=== PATIENT | male | born 1960 | race African-American/Black ===

== ENCOUNTER 2016-11-14 15:34 | Emergency (ER) | payer MEDICAID ==
[2016-11-14] MEDS ORDERED: HYDROmorphone 1 MG/ML Syringe IM ONE (16:06)
[2016-11-14] MEDS ORDERED: Metoclopramide 10 MG/2 ML SDV IM ONE (16:06)
--- NOTE | 2016-11-14 16:13 | EDM.PDOC ---
ED HPI GENERAL MEDICAL PROBLEM - General Chief Complaint: General Stated Complaint: L HIP PAIN Time Seen by Provider: 11/14/16 16:08 Source of Information: Reports: Patient History Limitations: Reports: No limitations - History of Present Illness INITIAL COMMENTS - FREE TEXT/NARRATIVE: 56-year-old male of descent attends the ED with acute signs and symptoms of opiate withdrawal. Patient has nausea vomiting diarrhea rhinorrhea ,shakes and tremors with abdominal cramping pain. 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 He said his right hip total replacement. He is a war and was injured during activity in the war. He states that his pain has been controlled with OxyContin 80 mg twice a day for a long time. Decision made to try and wean him off this medication by Dr. Burkett his terminal carman care physician. His dose was reduced to 20 mg OxyContin twice a day . Patient states his pain is uncontrolled and now he is going through withdrawal. Treatment in the ED was and I am injection of Dilaudid 2 mg with Reglan 10 mg for nausea relief. I will place him on OxyContin 60 mg twice daily for the next 10 days until he can followup with Dr. Burkett decision made about further reductions in medication if that is the plan. Onset: sudden (48 hours ago) Onset Date: 11/13/16 Duration: Hour(s): Location: Reports: lower extremity, left (Has cubr-wn-rkof situation left hip. Has below-knee amputation left knee. Has a prosthetic left leg) Quality: Reports: Ache, Throbbing Severity: moderate (Become severe at times.) Improves with: Reports: None Worsens with: Reports: None, Movement Context: Denies: Activity, Exercise, Lifting, Sick contact (Standing or trying to walk), Trauma, Other Associated Symptoms: Reports: diaphoresis, fever/chills, loss of appetite, malaise (Nausea and vomiting), nausea/vomiting. 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 (see below) ([place] Contin 20 mg tablet.) Left Hip Pain Score (Numeric/FACES): 9 - Related Data Allergies Allergy/AdvReac Type Severity Reaction Status Date / Time tramadol Allergy Hives Verified 11/14/16 15:50 naproxen [From Naprosyn] AdvReac Nausea and Verified 11/14/16 15:50 Vomiting Home Meds: Home Meds Lisinopril 20 mg PO DAILY 11/23/14 [History] Canagliflozin/Metformin HCl [Invokamet 150-1,000 mg Tablet] 1 tab PO BID [History] Gabapentin [Neurontin] 800 mg PO TID 07/23/15 [History] Warfarin [Coumadin] 10 mg PO DAILY 07/23/15 [History] levETIRAcetam [Keppra] 500 mg PO BID 07/23/15 [History] Aspirin 325 mg PO DAILY 11/13/15 [History] oxyCODONE ER [OxyCONTIN] 20 mg PO BID 11/14/16 [History] oxyCODONE HCl [Oxycontin] 60 mg PO BID #20 tab.er.12h 11/14/16 [Rx] Past Medical History HEENT History: Reports: Impaired vision, Retinal detachment Cardiovascular History: Reports: Hypertension Respiratory History: Reports: None Gastrointestinal History: Reports: None Genitourinary History: Reports: None Other Musculoskeletal History: RITA suffered a fracture and had screws and plates placed 2004 Neurological History: Reports: None Psychiatric History: Reports: Depression Endocrine/Metabolic History: Reports: Diabetes, type II Other Endocrine/Metabolic History: Diabetes for the past year. Checks BS twice daily and takes a new med called Invokana Hematologic History: Reports: None Immunologic History: Reports: None Oncologic (Cancer) History: Reports: None Dermatologic History: Reports: Cellulitis Other Dermatologic History: Cellulitis to LLE - Infectious Disease History Infectious Disease History: Reports: None - Past Surgical History Other HEENT Surgeries/Procedures: detached retina 1978 Musculoskeletal Surgical History: Reports: Amputation Other Musculoskeletal Surgeries/Procedures:: right arthroscoptic knee 1980; right hip replacement 2004 in [place]; BTK amputation of the left leg Social & Family History - Family History Family Medical History: Noncontributory - Tobacco Use Smoking Status *Q: Never Smoker Years of Tobacco use: 10 Packs/Tins Daily: 0.5 Used Tobacco, but Quit: No Second Hand Smoke Exposure: No - Caffeine Use Caffeine Use: Reports: Soda - Alcohol Use Days Per Week of Alcohol Use: 0 Number of Drinks Per Day: 2 Total Drinks Per Week: 0 - Recreational Drug Use Recreational Drug Use: No - Living Situation & Occupation Living situation: Reports: single Occupation: disabled ED ROS GENERAL - Review of Systems Review Of Systems: See Below Constitutional: Reports: chills, malaise, weakness, fatigue. Denies: weight loss HEENT: Reports: No symptoms, Other (Dry mouth) Respiratory: Denies: Shortness of Breath, Wheezing, Pleuritic Chest Pain, Cough , Sputum Cardiovascular: Reports: No symptoms Endocrine: Reports: no symptoms GI/Abdominal: Reports: Diarrhea, Nausea, Vomiting. Denies: Abdominal pain, Anorexia, Black stool, Bloody stool : Reports: no symptoms Musculoskeletal: Reports: other (Feels tremors with occasional muscle cramps.) Neurological: Reports: Weakness, Other (Tremors) Psychiatric: Reports: Agitation, Anxiety, Mood lability Hematologic/Lymphatic: Reports: no symptoms Immunologic: Reports: no symptoms ED EXAM, GENERAL - Physical Exam Exam: See Below Exam Limited By: No limitations General Appearance: alert, moderate distress (Is diaphoretic.) Throat/Mouth: Normal inspection, Normal lips, Normal oropharynx, Other Head: atraumatic (Dry mouth.), normocephalic Neck: normal inspection, supple, non-tender, full range of motion. No: lymphadenopathy (L), lymphadenopathy (R) Respiratory/Chest: no respiratory distress, lungs clear, normal breath sounds, no accessory muscle use, chest non-tender Cardiovascular: regular rate, rhythm, no edema, no gallop, no murmur, no rub, tachycardia (Resting heart rate of 118 permanent) Extremities: other (Has an above-knee prosthesis on the left. Evidence of previous surgery surgery to his right hip.) Psychiatric: anxious Skin Exam: Cool, Diaphoretic (Mild) Course - Vital Signs Last Recorded V/S: Last Vital Signs Temp 36.1 C 11/14/16 15:44 Pulse 97 11/14/16 16:25 Resp 18 11/14/16 16:25 BP 152/95 H 11/14/16 16:25 Pulse Ox 97 11/14/16 16:25 - Orders/Labs/Meds Meds: Medications Discontinued Medications Generic Name Dose Route Start Last Admin Trade Name Freq PRN Reason Stop Dose Admin Hydromorphone HCl 2 mg 11/14/16 16:06 11/14/16 16:18 Dilaudid IM 11/14/16 16:07 2 mg ONETIME ONE Administration Metoclopramide HCl 10 mg 11/14/16 16:06 11/14/16 16:19 Reglan IM 11/14/16 16:07 10 mg ONETIME ONE Administration - Radiology Interpretation Free Text/Narrative:: 56-year-old male of descent reports that he is a war . States that he was pain has been controlled primarily his left hip and left lower extremity with OxyContin 80 mg twice a day for the last several months. Apparently a decision has been made to to reduce his OxyContin dosage and his primary care physician reduce his OxyContin to 20 mg twice daily from 80 mg twice daily last week. He was without medication for 2 days and since starting back he is now nauseated diaphoretic having diarrhea to keep anything down abdominal cramping pain feels jittery and shaky inside and week. On exam he is diaphoretic cool clammy skin. Reports significant nausea. Patient to go to acute opiate withdrawal. Plan given an IM injection of Dilaudid 2 mg with Reglan 10 mg for acute nausea vomiting and pain relief. He will be placed in OxyContin 60 mg twice daily for 10 days and then he'll followup with Dr. Burkett to further reduce his OxyContin if this is the plan. It appears he won' t need a much more gradual reduction in his medication. Departure - Departure Time of Disposition: 16:13 Disposition: Home, Self-Care 01 Condition: fair Clinical Impression: Opiate withdrawal Prescriptions: oxyCODONE HCl [Oxycontin] 60 mg PO BID #20 tab.er.12h Instructions: Finding Treatment for Addiction Referrals: Venkat Burkett MD [Primary Care Provider] - Forms: ED Department Discharge Additional Instructions: Evaluation in the emergency department today in regards to acute onset of opiate withdrawal. Previous pain management chronically has been OxyContin 80 mg twice daily. 4 terazosin it was reduced to 20 mg twice daily and subsequently you are experiencing acute opiate withdrawal with nausea vomiting diarrhea diaphoresis and tremors. It appears that the sudden decrease in the amount of opiates in your system is causing opiate withdrawal. He was therefore given an IM injection of Dilaudid 2 mg with Reglan 10 mg for nausea. I did write a prescription for OxyContin 60 mg tabs be taken twice a day for the next 10 days until you can sort this out with her primary care physician Dr. Sandoval. If further reductions are going to be carried out in your OxyContin treatment plan it'll have to be done gradually so that you do not experience acute opiate withdrawal.
[2016-11-14 16:29] VITALS: BP 152/95
== END 2016-11-14 16:25 | disposition home or self-care (01) ==
LOC: JD.ED 15:34
DX: F11.23 Opioid dependence with withdrawal (principal); I10 Essential (primary) hypertension; F32.9 Major depressive disorder, single episode, unspecified; E11.9 Type 2 diabetes mellitus without complications; Z79.82 Long term (current) use of aspirin; Z79.899 Other long term (current) drug therapy; Z79.01 Long term (current) use of anticoagulants; Z88.5 Allergy status to narcotic agent; Z88.8 Allergy status to other drugs, medicaments and biological substances; Z89.512 Acquired absence of left leg below knee; Z96.641 Presence of right artificial hip joint; Z98.890 Other specified postprocedural states
CPT/HCPCS: 96372; 99284; J1170; J2765

== ENCOUNTER 2016-12-07 13:55 | Emergency (ER) | payer MEDICAID ==
--- NOTE | 2016-12-07 14:07 | EDM.PDOC ---
ED HPI GENERAL MEDICAL PROBLEM - General Chief Complaint: Lower Extremity Injury/Pain Stated Complaint: LEFT LEG PAIN Time Seen by Provider: 12/07/16 14:07 Source of Information: Reports: Patient History Limitations: Reports: No Limitations - History of Present Illness INITIAL COMMENTS - FREE TEXT/NARRATIVE: 56-year-old male presents to the ED with left leg pain. Patient has a chronic qhmy-lq-dcem situation his left hip which is not amenable to surgery due to having a below-knee amputation on the left side. It is felt that if he has his hip fixed that he will possibly never be able to walk again. He reports that he lost his current dose of OxyContin 40 mg twice daily. You're Madelaine filled this a few days ago. He has been without medication since Friday evening. He reported the incident to the police apparently. He doesn't have anybody around him would take his medication. He is having some nausea without any diarrhea at this time. He states he feels spaced out in his head like he can't think straight. Apparently one of his new medications his Ativan which may be the culprit. He denies fever chills cough or sputum production. 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 He does have a artificial right hip), Generalized ( Feels generalized weakness feels cognitively impaired he can't think straight. Not sleeping well. Severe pain left hip) Quality: Reports: Ache, Throbbing Severity: Moderate (Chronic problem) Improves with: Reports: Rest Worsens with: Reports: Movement (Weightbearing) Context: Denies: Activity, Exercise, Lifting, Sick Contact, Trauma, Other Associated Symptoms: Reports: Confusion, Nausea/Vomiting (Nauseated but no vomiting), Weakness. 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) Left Hip Pain Score (Numeric/FACES): 8 - Related Data Allergies Allergy/AdvReac Type Severity Reaction Status Date / Time tramadol Allergy Hives Verified 11/14/16 15:50 naproxen [From Naprosyn] AdvReac Nausea and Verified 11/14/16 15:50 Vomiting Home Meds: Home Meds Lisinopril 20 mg PO DAILY 11/23/14 [History] Canagliflozin/Metformin HCl [Invokamet 150-1,000 mg Tablet] 1 tab PO BID [History] Gabapentin [Neurontin] 800 mg PO TID 07/23/15 [History] Warfarin [Coumadin] 10 mg PO DAILY 07/23/15 [History] levETIRAcetam [Keppra] 500 mg PO BID 07/23/15 [History] Aspirin 325 mg PO DAILY 11/13/15 [History] oxyCODONE ER [OxyCONTIN] 40 mg PO BID 11/14/16 [History] glipiZIDE [Glucotrol XL] 5 mg PO BIDD #60 tab.er 12/07/16 [Rx] oxyCODONE HCl [Oxycontin] 15 mg PO Q12H #20 tab.er.12h 12/07/16 [Rx] Past Medical History HEENT History: Reports: Impaired Vision, Retinal Detachment Cardiovascular History: Reports: Hypertension Respiratory History: Reports: None Gastrointestinal History: Reports: None Genitourinary History: Reports: None Other Musculoskeletal History: RITA suffered a fracture and had screws and plates placed 2004 Neurological History: Reports: None Psychiatric History: Reports: Depression Endocrine/Metabolic History: Reports: Diabetes, Type II Other Endocrine/Metabolic History: Diabetes for the past year. Checks BS twice daily and takes a new med called Invokana Hematologic History: Reports: None Immunologic History: Reports: None Oncologic (Cancer) History: Reports: None Dermatologic History: Reports: Cellulitis Other Dermatologic History: Cellulitis to LLE - Infectious Disease History Infectious Disease History: Reports: None - Past Surgical History HEENT Surgical History: Reports: Detached Retina Social & Family History - Family History Family Medical History: Noncontributory - Tobacco Use Smoking Status *Q: Never Smoker Years of Tobacco use: 10 Packs/Tins Daily: 0.5 Used Tobacco, but Quit: No Second Hand Smoke Exposure: No - Caffeine Use Caffeine Use: Reports: Soda - Alcohol Use Days Per Week of Alcohol Use: 0 Number of Drinks Per Day: 2 Total Drinks Per Week: 0 - Recreational Drug Use Recreational Drug Use: No - Living Situation & Occupation Living situation: Reports: Single Occupation: Disabled Review of Systems - Review of Systems Review Of Systems: See Below Constitutional: Reports: Weakness. Denies: Chills, Diaphoresis, Fever Eyes: Reports: No Symptoms Ears: Reports: No Symptoms Nose: Reports: No Symptoms Mouth/Throat: Reports: No Symptoms Respiratory: Reports: No Symptoms Cardiovascular: Reports: No Symptoms GI/Abdominal: Reports: Nausea. Denies: Vomiting Genitourinary: Reports: No Symptoms Musculoskeletal: Reports: Back Pain, Other (Chronic pain left hip from bone-on- bone situation. Has a below-knee amputation on the left side. Occasional phantom pain.) Skin: Reports: No Symptoms Neurological: Reports: Confusion, Difficulty Walking (Chronically has a prosthetic left leg). Denies: Dizziness (Feels confused and disoriented at times.), Headache, Numbness, Pre-Existing Deficit, Seizure, Syncope, Tingling, Trouble Speaking Psychiatric: Reports: Confusion Trauma Exam - Physical Exam Exam: See Below Exam Limited By: Other General Appearance: Reports: Alert (Answers all questions appropriately at the time my exam), WD/WN, No Apparent Distress Head: Reports: Atraumatic, Normocephalic Eyes: Bilateral Eye: Normal Inspection Throat/Mouth: Reports: Normal Inspection, Normal Lips, Normal Oropharynx Neck: Reports: Non-Tender, Full Range of Motion, Normal Alignment, Normal Inspection Respiratory Exam: Reports: Lungs Clear (Mild tachypnea breast), Normal Breath Sounds, Respiratory Distress Cardiovascular: Reports: Normal Peripheral Pulses, Regular Rate, Rhythm, No Edema (Mild tachycardia at rest 102 per minute.), No Gallop, No Murmur, No Rub, Tachycardia GI/Abdominal: Reports: Normal Bowel Sounds, Soft, Non-Tender, No Organomegaly Extremities: Other (Has a below-knee amputation on the left side wearing his prosthesis at this time.) Neurologic: Reports: No Motor/Sensory Deficits, Alert, Normal Mood/Affect, Oriented x 3 Skin: Reports: Normal Color, Warm/Dry - [place] Coma Score Best Eye Response ([place]): (4) Open Spontaneously Best Verbal Response ([place]): (5) Oriented Best Motor Response ([place]): (6) Obeys Commands [place] Total: 15 Course - Vital Signs Last Recorded V/S: Last Vital Signs Temp 36.3 C 12/07/16 14:11 Pulse 102 H 12/07/16 14:11 Resp 20 12/07/16 14:11 BP 156/77 H 12/07/16 14:11 Pulse Ox 99 12/07/16 14:11 - Orders/Labs/Meds Labs: Laboratory Tests 12/07/16 12/07/16 12/07/16 Range/Units 14:27 14:27 14:27 WBC 5.90 (4.23-9.07) K/mm3 RBC 5.54 (4.63-6.08) M/mm3 Hgb 15.4 (13.7-17.5) gm/L Hct 46.8 (40.1-51.0) % MCV 84.5 (79.0-92.2) fl MCH 27.8 (25.7-32.2) pg MCHC 32.9 (32.2-35.5) g/dl RDW Std Deviation 44.5 H (35.1-43.9) fL Plt Count 244 (163-337) K/mm3 MPV 10.1 (9.4-12.3) fl Neutrophils % (Manual) 53 (40-60) % Band Neutrophils % 0 (0-10) % Lymphocytes % (Manual) 44 H (20-40) % Atypical Lymphs % 0 % Monocytes % (Manual) 3 (2-10) % Eosinophils % (Manual) 0 L (0.8-7.0) % Basophils % (Manual) 0 L (0.2-1.2) Platelet Estimate Adequate RBC Morph Comment Normal PT 30.4 H (8.0-13.0) SECONDS INR 2.62 Sodium 135 L (136-145) mEq/L Potassium 3.9 (3.5-5.1) mEq/L Chloride 100 (98-107) mEq/L Carbon Dioxide 20 L (21-32) mEq/L Anion Gap 18.9 H (5-15) BUN 14 (7-18) mg/dL Creatinine 1.2 (0.7-1.3) mg/dL Est Cr Clr Drug Dosing TNP Estimated GFR (MDRD) > 60 (>60) mL/min BUN/Creatinine Ratio 11.7 L (14-18) Glucose 331 H (74-106) mg/dL Hemoglobin A1c (4.50-6.20) % Calcium 9.4 (8.5-10.1) mg/dL Magnesium 2.0 (1.8-2.4) mg/dl Total Bilirubin 0.3 (0.2-1.0) mg/dL AST 16 (15-37) U/L ALT 39 (16-63) U/L Alkaline Phosphatase 84 (46-116) U/L Total Protein 8.2 (6.4-8.2) g/dl Albumin 3.7 (3.4-5.0) g/dl Globulin 4.5 gm/dL Albumin/Globulin Ratio 0.8 L (1-2) //17 Range/Units 14:27 WBC (4.23-9.07) K/mm3 RBC (4.63-6.08) M/mm3 Hgb (13.7-17.5) gm/L Hct (40.1-51.0) % MCV (79.0-92.2) fl MCH (25.7-32.2) pg MCHC (32.2-35.5) g/dl RDW Std Deviation (35.1-43.9) fL Plt Count (163-337) K/mm3 MPV (9.4-12.3) fl Neutrophils % (Manual) (40-60) % Band Neutrophils % (0-10) % Lymphocytes % (Manual) (20-40) % Atypical Lymphs % % Monocytes % (Manual) (2-10) % Eosinophils % (Manual) (0.8-7.0) % Basophils % (Manual) (0.2-1.2) Platelet Estimate RBC Morph Comment PT (8.0-13.0) SECONDS INR Sodium (136-145) mEq/L Potassium (3.5-5.1) mEq/L Chloride (98-107) mEq/L Carbon Dioxide (21-32) mEq/L Anion Gap (5-15) BUN (7-18) mg/dL Creatinine (0.7-1.3) mg/dL Est Cr Clr Drug Dosing Estimated GFR (MDRD) (>60) mL/min BUN/Creatinine Ratio (14-18) Glucose (74-106) mg/dL Hemoglobin A1c 9.60 H (4.50-6.20) % Calcium (8.5-10.1) mg/dL Magnesium (1.8-2.4) mg/dl Total Bilirubin (0.2-1.0) mg/dL AST (15-37) U/L ALT (16-63) U/L Alkaline Phosphatase (46-116) U/L Total Protein (6.4-8.2) g/dl Albumin (3.4-5.0) g/dl Globulin gm/dL Albumin/Globulin Ratio (1-2) Meds: Medications Discontinued Medications Generic Name Dose Route Start Last Admin Trade Name Raquel PRN Reason Stop Dose Admin Hydromorphone HCl 1.5 mg 12/07/16 14:18 12/07/16 15:34 Dilaudid IM 12/07/16 14:19 1.5 mg ONETIME ONE Administration Insulin Human Regular 8 unit 12/07/16 15:16 12/07/16 15:29 Humulin R SUBCUT 12/07/16 15:17 8 units ONETIME ONE Administration Protocol Metoclopramide HCl 10 mg 12/07/16 14:18 12/07/16 15:32 Reglan IM 12/07/16 14:19 10 mg ONETIME ONE Administration - Radiology Interpretation Free Text/Narrative:: 56-year-old male presents the ED primarily for pain management. Has a chronic nnaq-if-hitj situation left hip due to degenerative arthritis which is not amenable to surgery at this time. He is a chronic pain in his left lower extremity from below-knee of dictation. He has recently been started on a weaning program from OxyContin. He was been weaned from 80 mg twice daily down to 60 mg twice daily and in the last week started 40 mg twice daily. He states he simply misplaced or lost his medication on Friday night morning and has yet to find it. Starting to have some withdrawal symptoms today with nausea with no vomiting or diarrhea. He states today however he feels more confused and somewhat disoriented and not sure of himself. He is alert and oriented on my examination and answers all questions appropriately. Plan I will give him an IM injection of Dilaudid 1.5 mg with Reglan 10 mg. Of note he weighs 315 pounds. He is on Coumadin 10 mg daily. I will have routine labs performed as well as his PT/INR. - Re-Assessments/Exams Free Text/Narrative Re-Assessment/Exam: 12/07/16 15:06 lab work is back revealing a normal white count of 5.90 with 53% neutrophils 40% lymphocytes. Hemoglobin 15.4 hematocrit is 46.8. PT is 30.4 PT INR is 2.62. Sodium 135 potassium 3.9 bicarbonate is 20 anion gap is elevated 18.9 and glucose is elevated at 331 indicating that he has type 2 diabetes. Therefore he is going to play denies together reason it is probably not feeling quite so well. 12/07/16 15:19 he states she's been taking his Endocam meds he is already on the maximum dose. His elevated anion gap and sugar indicate that his diabetes is in poor control. I'm going to give him 8 units of Humalog insulin subcutaneous now and will start him on glipizide 5 mg twice a day. I will discharge him on OxyContin 15 mg twice daily for 10 days until he can follow up with Dr. Burkett again. Departure - Departure Time of Disposition: 15:20 Disposition: Home, Self-Care 01 Condition: fair Clinical Impression: Volume depletion, extrarenal loss, Pain management Uncontrolled type 2 diabetes mellitus Qualifiers: Diabetes mellitus complication status: with unspecified complications - Discharge Information Prescriptions: glipiZIDE [Glucotrol XL] 5 mg PO BIDD #60 tab.er oxyCODONE HCl [Oxycontin] 15 mg PO Q12H #20 tab.er.12h Instructions: Type 2 Diabetes Mellitus, Adult Referrals: Venkat Burkett MD [Primary Care Provider] - Forms: ED Department Discharge
[2016-12-07] MEDS ORDERED: HYDROmorphone 1 MG/ML Syringe IM ONE (14:18)
[2016-12-07] MEDS ORDERED: Metoclopramide 10 MG/2 ML SDV IM ONE (14:18)
[2016-12-07] MEDS ORDERED: Insulin Regular, Human 100 Units/ML 3 ML Vial SUBCUT ONE (15:16)
[2016-12-07 18:17] VITALS: BP 146/81
== END 2016-12-07 16:00 | disposition home or self-care (01) ==
LOC: JD.ED 13:55
DX: E86.9 Volume depletion, unspecified (principal); E11.65 Type 2 diabetes mellitus with hyperglycemia; I10 Essential (primary) hypertension; Z79.01 Long term (current) use of anticoagulants; Z79.82 Long term (current) use of aspirin; Z79.899 Other long term (current) drug therapy
CPT/HCPCS: 36415; 80053; 83036; 83735; 85025; 85610; 96372; 99283; J1170; J1817; J2765

== ENCOUNTER 2017-02-17 08:27 | Emergency (ER) | payer MEDICAID ==
[2017-02-17 08:43] VITALS: BP 148/110
--- NOTE | 2017-02-17 09:07 | EDM.PDOC ---
ED HPI GENERAL MEDICAL PROBLEM - General Chief Complaint: Lower Extremity Injury/Pain Stated Complaint: HIP PAIN Time Seen by Provider: 02/17/17 08:50 Source of Information: Reports: Patient History Limitations: Reports: No Limitations - History of Present Illness INITIAL COMMENTS - FREE TEXT/NARRATIVE: The patient presents for a medicine refill. He has chronic hip pain and a left leg amputation. He misplaced his medications and is needing more. Onset: Gradual Duration: Day(s): Location: Reports: Lower Extremity, Left (Hip and leg) Quality: Reports: Sharp Severity: Severe Improves with: Reports: None Worsens with: Reports: Movement Associated Symptoms: Reports: No Other Symptoms - Related Data Allergies Allergy/AdvReac Type Severity Reaction Status Date / Time tramadol Allergy Hives Verified 02/17/17 08:43 naproxen [From Naprosyn] AdvReac Nausea and Verified 02/17/17 08:43 Vomiting Home Meds: Home Meds Lisinopril 20 mg PO DAILY 11/23/14 [History] Canagliflozin/Metformin HCl [Invokamet 150-1,000 mg Tablet] 1 tab PO BID [History] Gabapentin [Neurontin] 800 mg PO TID 07/23/15 [History] Warfarin [Coumadin] 10 mg PO DAILY 07/23/15 [History] levETIRAcetam [Keppra] 500 mg PO BID 07/23/15 [History] Aspirin 325 mg PO DAILY 11/13/15 [History] glipiZIDE [Glucotrol XL] 5 mg PO BIDD #60 tab.er 12/07/16 [Rx] oxyCODONE HCl [Oxycontin] 15 mg PO Q12H #20 tab.er.12h 12/07/16 [Rx] oxyCODONE HCl [Oxycodone HCl] 15 mg PO BID PRN #20 tablet 02/17/17 [Rx] Past Medical History HEENT History: Reports: Impaired Vision, Retinal Detachment Cardiovascular History: Reports: Hypertension Respiratory History: Reports: None Gastrointestinal History: Reports: None Genitourinary History: Reports: None Other Musculoskeletal History: RITA suffered a fracture and had screws and plates placed 2004 Neurological History: Reports: None Psychiatric History: Reports: Depression Endocrine/Metabolic History: Reports: Diabetes, Type II Other Endocrine/Metabolic History: Diabetes for the past year. Checks BS twice daily and takes a new med called Invokana Hematologic History: Reports: None Immunologic History: Reports: None Oncologic (Cancer) History: Reports: None Dermatologic History: Reports: Cellulitis Other Dermatologic History: Cellulitis to LLE - Infectious Disease History Infectious Disease History: Reports: None - Past Surgical History HEENT Surgical History: Reports: Detached Retina Social & Family History - Family History Family Medical History: Noncontributory - Tobacco Use Smoking Status *Q: Never Smoker Years of Tobacco use: 10 Packs/Tins Daily: 0.5 Used Tobacco, but Quit: No Month Tobacco Last Used: 31 yrs Second Hand Smoke Exposure: No - Caffeine Use Caffeine Use: Reports: Soda - Alcohol Use Days Per Week of Alcohol Use: 0 Number of Drinks Per Day: 2 Total Drinks Per Week: 0 - Recreational Drug Use Recreational Drug Use: No - Living Situation & Occupation Living situation: Reports: Single Occupation: Disabled Review of Systems - Review of Systems Review Of Systems: See Below Constitutional: Reports: No Symptoms Eyes: Reports: No Symptoms Ears: Reports: No Symptoms Nose: Reports: No Symptoms Mouth/Throat: Reports: No Symptoms Respiratory: Reports: No Symptoms Cardiovascular: Reports: No Symptoms GI/Abdominal: Reports: No Symptoms Genitourinary: Reports: No Symptoms Musculoskeletal: Reports: Other (Left hip and leg pain) ED EXAM, GENERAL - Physical Exam Exam: See Below Exam Limited By: No Limitations General Appearance: Alert, No Apparent Distress Ears: Normal External Exam Nose: Normal Inspection Head: Atraumatic, Normocephalic Neck: Normal Inspection Respiratory/Chest: No Respiratory Distress, Lungs Clear, Normal Breath Sounds Cardiovascular: Regular Rate, Rhythm, No Edema, No Murmur GI/Abdominal: Soft, Non-Tender, No Organomegaly Back Exam: Normal Inspection Extremities: Other (Below the knee amputation. Left hip pain upon palpation.) Course - Vital Signs Last Recorded V/S: Last Vital Signs Temp 97.1 F 02/17/17 08:41 Pulse 100 02/17/17 08:41 Resp 16 02/17/17 08:41 BP 148/110 H 02/17/17 08:41 Pulse Ox 100 02/17/17 08:41 Departure - Departure Time of Disposition: 09:05 Disposition: Home, Self-Care 01 Condition: Good Clinical Impression: Chronic left hip pain Osteoarthritis of left hip Qualifiers: Osteoarthritis type: primary Qualified Code(s): M16.12 - Unilateral primary osteoarthritis, left hip - Discharge Information Prescriptions: oxyCODONE HCl [Oxycodone HCl] 15 mg PO BID PRN #20 tablet PRN Reason: Pain Referrals: Venkat Burkett MD [Primary Care Provider] - Forms: ED Department Discharge Additional Instructions: Take your medication as prescribed. Please return if you are worse.
== END 2017-02-17 09:31 | disposition home or self-care (01) ==
LOC: JD.ED 08:27
DX: M16.12 Unilateral primary osteoarthritis, left hip (principal); I10 Essential (primary) hypertension; E11.9 Type 2 diabetes mellitus without complications; F32.9 Major depressive disorder, single episode, unspecified; Z88.5 Allergy status to narcotic agent; Z79.899 Other long term (current) drug therapy; Z79.01 Long term (current) use of anticoagulants; Z79.82 Long term (current) use of aspirin
CPT/HCPCS: 99282; 99283

== ENCOUNTER 2017-03-13 16:15 | Emergency (ER) | payer MEDICAID ==
[2017-03-13 16:30] VITALS: BP 156/107
--- NOTE | 2017-03-13 16:52 | EDM.PDOC ---
ED HPI GENERAL MEDICAL PROBLEM - General Chief Complaint: Lower Extremity Injury/Pain Stated Complaint: Hip pain Time Seen by Provider: 03/13/17 16:30 Source of Information: Reports: Patient, RN Notes Reviewed History Limitations: Reports: No Limitations - History of Present Illness INITIAL COMMENTS - FREE TEXT/NARRATIVE: 56 year old male presents to the ED with complaints of left hip pain after a fall two days ago. He has a left below the knee amputation. He was trying out a new prosthesis when he fell. He is able to bear weight but it is painful. He has severe arthritis and was told that he is not a candidate for surgery. The patient says he has not taken anything for pain. He has tried icing it. Left Hip Pain Score (Numeric/FACES): 9 - Related Data Allergies Allergy/AdvReac Type Severity Reaction Status Date / Time tramadol Allergy Hives Verified 03/13/17 16:24 naproxen [From Naprosyn] AdvReac Nausea and Verified 03/13/17 16:24 Vomiting Home Meds: Home Meds Lisinopril 20 mg PO DAILY 11/23/14 [History] Canagliflozin/Metformin HCl [Invokamet 150-1,000 mg Tablet] 1 tab PO BID [History] Gabapentin [Neurontin] 800 mg PO TID 07/23/15 [History] Warfarin [Coumadin] 10 mg PO DAILY 07/23/15 [History] levETIRAcetam [Keppra] 500 mg PO BID 07/23/15 [History] Aspirin 325 mg PO DAILY 11/13/15 [History] glipiZIDE [Glucotrol XL] 5 mg PO BIDD #60 tab.er 12/07/16 [Rx] oxyCODONE HCl [Oxycodone HCl] 15 mg PO BID PRN #20 tablet 02/17/17 [Rx] Past Medical History HEENT History: Reports: Impaired Vision, Retinal Detachment Cardiovascular History: Reports: Hypertension Respiratory History: Reports: None Gastrointestinal History: Reports: None Genitourinary History: Reports: None Other Musculoskeletal History: RITA suffered a fracture and had screws and plates placed 2004 Neurological History: Reports: None Psychiatric History: Reports: Depression Endocrine/Metabolic History: Reports: Diabetes, Type II Other Endocrine/Metabolic History: Diabetes for the past year. Checks BS twice daily and takes a new med called Invokana Hematologic History: Reports: None Immunologic History: Reports: None Oncologic (Cancer) History: Reports: None Dermatologic History: Reports: Cellulitis Other Dermatologic History: Cellulitis to LLE - Infectious Disease History Infectious Disease History: Reports: None - Past Surgical History HEENT Surgical History: Reports: Detached Retina Social & Family History - Family History Family Medical History: Noncontributory - Tobacco Use Smoking Status *Q: Unknown Ever Smoked Years of Tobacco use: 10 Packs/Tins Daily: 0.5 Used Tobacco, but Quit: No Month Tobacco Last Used: 31 yrs Second Hand Smoke Exposure: No - Caffeine Use Caffeine Use: Reports: Soda - Alcohol Use Days Per Week of Alcohol Use: 0 Number of Drinks Per Day: 2 Total Drinks Per Week: 0 - Recreational Drug Use Recreational Drug Use: No - Living Situation & Occupation Living situation: Reports: Single Occupation: Disabled Review of Systems - Review of Systems Review Of Systems: See Below Respiratory: Reports: No Symptoms Cardiovascular: Reports: No Symptoms Musculoskeletal: Reports: Joint Pain Skin: Reports: No Symptoms. Denies: Wound Neurological: Reports: No Symptoms. Denies: Numbness, Tingling ED EXAM, GENERAL - Physical Exam Exam: See Below Exam Limited By: No Limitations General Appearance: Alert, WD/WN, No Apparent Distress Respiratory/Chest: No Respiratory Distress, Lungs Clear Cardiovascular: Regular Rate, Rhythm Extremities: Other (left below the knee amputation. prosthesis in place. Tenderness over anterior aspect of left hip with palpation. No crepitus or deformity. No external rotation appreciated. ) Neurological: Alert, Oriented, Normal Gait Psychiatric: Flat Affect Skin Exam: Warm, Dry, Intact Course - Vital Signs Last Recorded V/S: Last Vital Signs Temp 97.7 F 03/13/17 16:26 Pulse 103 H 03/13/17 16:26 Resp BP 156/107 H 03/13/17 16:26 Pulse Ox 98 03/13/17 16:26 - Orders/Labs/Meds Orders: Active Orders 24 hr Category Date Time Status Hip Min 2V or 3V w Pelvis Lt [CR] Stat Exams 03/13/17 16:47 Ordered Meds: Medications Discontinued Medications Generic Name Dose Route Start Last Admin Trade Name Freq PRN Reason Stop Dose Admin Ketorolac Tromethamine 60 mg 03/13/17 17:27 Toradol IM 03/13/17 17:28 ONETIME ONE - Re-Assessments/Exams Free Text/Narrative Re-Assessment/Exam: I asked the patient to go through his current medications. He listed various medications but did not mention any opiates. I asked if he is taking any pain medication and he said no. I asked if he took anything for pain after his fall and he again said no. Review of the [place] Prescription Drug Registry reveals the following recent prescriptions: 03/06/17 Oxycontin 20mg #60 02/24/17 Diazepam 2mg #90 02/20/17 Oxycodone 20mg #180 02/17/17 Oxycodone 15mg #20 02/11/17 Oxycontin 20mg #60 01/27/17 Diazepam 2mg #90 01/27/17 Oxycodone 15mg #180 I asked the patient who his primary care provider is and he replied Dr. Caraballo. I asked if he has a local provider and he said no. The Drug registry reveals monthly prescriptions from Dr. Burkett. 03/13/17 17:33 X-rays of the pelvis and left hip are negative for fracture. He has severe arthritis to the left hip. The explained to the patient that I will not prescribe narcotics today because he has had several prescriptions filled this month. He states that he did not get the prescriptions filled. I explained that controlled substances only show up on the registry if they are filled. He continued to say that he has not filled them and stated "Call the pharmacy and ask them." I proceeded to call [facility] and they verified that the patient did in fact fill the above listed prescriptions. The patient will be given a one time dose of Toradol and discharged home. Departure - Departure Time of Disposition: 17:39 Disposition: Home, Self-Care 01 Condition: Good Clinical Impression: Chronic left hip pain - Discharge Information Referrals: PCP,None [Primary Care Provider] - Forms: ED Department Discharge Additional Instructions: Follow-up with Dr. Burkett to discuss your chronic pain Ice your left hip Weight bearing as tolerated - My Orders Last 24 Hours: My Active Orders 03/13/17 16:47 Hip Min 2V or 3V w Pelvis Lt [CR] Stat - Assessment/Plan Last 24 Hours: My Active Orders 03/13/17 16:47 Hip Min 2V or 3V w Pelvis Lt [CR] Stat
[2017-03-13] MEDS ORDERED: Ketorolac 60 MG/2 ML SDV IM ONE (17:27)
--- NOTE | 2017-03-14 08:19 | CR ---
Pelvis and left hip: AP view of the pelvis was obtained as well as AP and slight frog leg lateral view of the left hip. Comparison: Previous pelvis exam of 11/13/15. Right hip prosthesis is seen. Incidental heterotopic bone is noted off the lateral right hip. Severe joint space narrowing is noted within the left hip with subchondral cysts and osteophytes. Plate and screws are noted within the proximal left femur affixing an old femur fracture. Degenerative change is partially seen within the visualized lower lumbar spine. Vascular calcification is noted. No acute fracture or other abnormality is appreciated. Impression: 1. Right hip prosthesis. 2. Plate and screws affixing old left hip fracture. Secondary degenerative change within the left hip is seen which appears severe. 3. Other incidental findings. Nothing acute is appreciated. Diagnostic code #3
== END 2017-03-13 18:00 | disposition home or self-care (01) ==
LOC: JD.ED 16:15
DX: M25.552 Pain in left hip (principal); G89.29 Other chronic pain; I10 Essential (primary) hypertension; F32.9 Major depressive disorder, single episode, unspecified; E11.9 Type 2 diabetes mellitus without complications; Z88.5 Allergy status to narcotic agent; Z79.82 Long term (current) use of aspirin; Z79.899 Other long term (current) drug therapy; Z68.32 Body mass index [BMI] 32.0-32.9, adult
CPT/HCPCS: 73502; 99283; J1885

== ENCOUNTER 2017-03-23 03:39 | Emergency (ER) | payer MEDICAID ==
[2017-03-23 03:56] VITALS: BP 135/91
[2017-03-23] MEDS ORDERED: HYDROmorphone 1 MG/ML Syringe IM ONE (04:10)
[2017-03-23] MEDS ORDERED: Promethazine 25 MG/ML SDV IM ONE (04:10)
--- NOTE | 2017-03-23 04:10 | EDM.PDOC ---
ED HPI GENERAL MEDICAL PROBLEM - General Chief Complaint: Lower Extremity Injury/Pain Stated Complaint: HIP PAIN Time Seen by Provider: 03/23/17 03:55 Source of Information: Reports: Patient History Limitations: Reports: No Limitations - History of Present Illness INITIAL COMMENTS - FREE TEXT/NARRATIVE: Mr. Barrera comes to the emergency room tonight due to increasing left hip pain. He states she's not able to sleep and he doesn't have any pain medication. Patient has a new prosthetic below-knee amputation in the past. It has a ball joint in the ankle joint which is made him fall a few times he is still getting used to the prosthesis. His pain is in the left groin and he has a known [id number]-[id number] situation in the hip. Pain is rating towards his penis and testicles which she finds very uncomfortable. It is worse with weightbearing. He therefore tends the ED tonight primarily for pain management so that you might get some sleep. 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: Other (see below) (None.) Left Hip Pain Score (Numeric/FACES): 8 - Related Data Allergies Allergy/AdvReac Type Severity Reaction Status Date / Time tramadol Allergy Hives Verified 03/13/17 16:24 naproxen [From Naprosyn] AdvReac Nausea and Verified 03/13/17 16:24 Vomiting Home Meds: Home Meds Lisinopril 20 mg PO DAILY 11/23/14 [History] Canagliflozin/Metformin HCl [Invokamet 150-1,000 mg Tablet] 1 tab PO BID [History] Gabapentin [Neurontin] 800 mg PO TID 07/23/15 [History] Warfarin [Coumadin] 10 mg PO DAILY 07/23/15 [History] levETIRAcetam [Keppra] 500 mg PO BID 07/23/15 [History] Aspirin 325 mg PO DAILY 11/13/15 [History] glipiZIDE [Glucotrol XL] 5 mg PO BIDD #60 tab.er 12/07/16 [Rx] oxyCODONE HCl [Oxycodone HCl] 15 mg PO BID PRN #20 tablet 02/17/17 [Rx] oxyCODONE HCl/Acetaminophen [Percocet 5-325 mg Tablet] 1 - 2 each PO Q4H PRN # 20 tablet 03/23/17 [Rx] Past Medical History HEENT History: Reports: Impaired Vision, Retinal Detachment Cardiovascular History: Reports: Hypertension Respiratory History: Reports: None Gastrointestinal History: Reports: None Genitourinary History: Reports: None Other Musculoskeletal History: RITA suffered a fracture and had screws and plates placed 2004 Neurological History: Reports: None Psychiatric History: Reports: Depression Endocrine/Metabolic History: Reports: Diabetes, Type II Other Endocrine/Metabolic History: Diabetes for the past year. Checks BS twice daily and takes a new med called Invokana Hematologic History: Reports: None Immunologic History: Reports: None Oncologic (Cancer) History: Reports: None Dermatologic History: Reports: Cellulitis Other Dermatologic History: Cellulitis to LLE - Infectious Disease History Infectious Disease History: Reports: None - Past Surgical History HEENT Surgical History: Reports: Detached Retina Social & Family History - Family History Family Medical History: Noncontributory - Tobacco Use Smoking Status *Q: Former Smoker Years of Tobacco use: 10 Packs/Tins Daily: 0.5 Used Tobacco, but Quit: Yes Month Tobacco Last Used: 37 years ago` Second Hand Smoke Exposure: No - Caffeine Use Caffeine Use: Reports: Soda - Alcohol Use Days Per Week of Alcohol Use: 0 Number of Drinks Per Day: 2 Total Drinks Per Week: 0 - Recreational Drug Use Recreational Drug Use: No - Living Situation & Occupation Living situation: Reports: Single Occupation: Disabled Review of Systems - Review of Systems Review Of Systems: See Below Constitutional: Denies: Chills, Diaphoresis, Fever, Weakness, Other Eyes: Reports: Glasses Ears: Reports: No Symptoms Nose: Reports: No Symptoms Mouth/Throat: Reports: No Symptoms Respiratory: Reports: No Symptoms Cardiovascular: Reports: No Symptoms GI/Abdominal: Reports: No Symptoms Genitourinary: Reports: Other (Currently having a lot of pain in his penis and left side of the scrotum.) Musculoskeletal: Reports: Shoulder Pain, Back Pain, Joint Pain (Severe pain left hip where has [id number]-rg-kgal situation.) Skin: Reports: No Symptoms Neurological: Reports: No Symptoms Psychiatric: Reports: No Symptoms ED EXAM, GENERAL - Physical Exam Exam: See Below Exam Limited By: No Limitations General Appearance: Alert, WD/WN, Mild Distress Respiratory/Chest: No Respiratory Distress, Normal Breath Sounds, No Accessory Muscle Use, Chest Non-Tender Cardiovascular: Normal Peripheral Pulses, Regular Rate, Rhythm, No Edema, No Murmur Back Exam: Other (Patient is walking with the aid of a cane and he is hunched over. He is a tall man but he states he has to walk this way to keep balance on his new prosthetic leg and ankle. Walks with a terrible limp due to severe pain in his left hip.) Neurological: Alert, Oriented, CN II-XII Intact, Normal Cognition. No: Normal Gait Psychiatric: Normal Affect Skin Exam: Warm, Dry, Intact, Normal Color, No Rash Course - Vital Signs Last Recorded V/S: Last Vital Signs Temp 36.6 C 03/23/17 03:53 Pulse 105 H 03/23/17 03:53 Resp 16 03/23/17 03:53 BP 135/91 H 03/23/17 03:53 Pulse Ox 99 03/23/17 03:53 - Orders/Labs/Meds Meds: Medications Discontinued Medications Generic Name Dose Route Start Last Admin Trade Name Freq PRN Reason Stop Dose Admin Hydromorphone HCl 2 mg 03/23/17 04:10 03/23/17 04:28 Dilaudid IM 03/23/17 04:11 2 mg ONETIME ONE Administration Promethazine HCl 25 mg 03/23/17 04:10 03/23/17 04:27 Phenergan IM 03/23/17 04:11 25 mg ONETIME ONE Administration - Radiology Interpretation Free Text/Narrative:: 56-year-old male with chronic pain syndrome involving his left hip where there is a [id number] situation. He has gotten these prosthetic leg with a ball joint and the ankle in the last 10 days. He states he is on several times as the ankle twist suddenly causing him to fall lose his balance. He is having increasing pain in his left hip and he does not have any pain medication. He essentially comes to the ED for pain management tonight. Given Dilaudid 2 mg IM with Phenergan 25 mg IM for acute pain relief. Patient has a high tolerance to narcotics. He will get 20 tablets of Percocet 5/3/25 milligrams strength from the [employer] machine. Departure - Departure Time of Disposition: 04:12 Disposition: Home, Self-Care 01 Condition: Fair Clinical Impression: Post-traumatic osteoarthritis of left hip - Discharge Information Prescriptions: oxyCODONE HCl/Acetaminophen [Percocet 5-325 mg Tablet] 1 - 2 each PO Q4H PRN # 20 tablet PRN Reason: pain relief. Instructions: Osteoarthritis Referrals: Farhan Caraballo MD [Primary Care Provider] - Forms: ED Department Discharge Additional Instructions: Evaluation in the emergency room tonight in regards to severe left hip pain. Recent addition of prosthesis to the left lower leg with ball joint is causing increased pressure in the left hip is already [id number] situation. Essentially seen through the ED tonight for pain management. You're given an injection of Dilaudid IM with Phenergan 25 mg IM to relieve pain and to allow sleep tonight. Percocet tabs 5/325 one or 2 every 4-6 hours as needed for pain relief provided through the [employer] machine. Follow-up with personal physician as planned for chronic pain relief.
== END 2017-03-23 04:33 | disposition home or self-care (01) ==
LOC: JD.ED 03:39
DX: M16.52 Unilateral post-traumatic osteoarthritis, left hip (principal); I10 Essential (primary) hypertension; E11.9 Type 2 diabetes mellitus without complications; Z88.5 Allergy status to narcotic agent; Z79.82 Long term (current) use of aspirin; Z79.01 Long term (current) use of anticoagulants; Z79.899 Other long term (current) drug therapy; Z87.891 Personal history of nicotine dependence
CPT/HCPCS: 96372; 99283; J1170; J2550

== ENCOUNTER 2017-05-14 00:38 | Emergency (ER) | payer MEDICAID ==
[2017-05-14 00:52] VITALS: BP 144/82
--- NOTE | 2017-05-14 00:52 | EDM.PDOC ---
ED HPI GENERAL MEDICAL PROBLEM - General Chief Complaint: Lower Extremity Injury/Pain Stated Complaint: HIP PAIN Time Seen by Provider: 05/14/17 00:48 - History of Present Illness INITIAL COMMENTS - FREE TEXT/NARRATIVE: 56-year-old male presents emergency room with left hip pain. She had an opportunity to review his records at some point he hasn't been forthright as far as worries getting his medication from and how much she's been getting. The patient apparently is on a pain contract and cannot get his medications filled until Friday. Therefore it is not our place to refill the pain medication. I did explain this to the patient. Left Hip Pain Score (Numeric/FACES): 8 - Related Data Allergies Allergy/AdvReac Type Severity Reaction Status Date / Time tramadol Allergy Hives Verified 03/13/17 16:24 naproxen [From Naprosyn] AdvReac Nausea and Verified 03/13/17 16:24 Vomiting Home Meds: Home Meds Lisinopril 20 mg PO DAILY 11/23/14 [History] Canagliflozin/Metformin HCl [Invokamet 150-1,000 mg Tablet] 1 tab PO BID [History] Gabapentin [Neurontin] 800 mg PO TID 07/23/15 [History] Warfarin [Coumadin] 10 mg PO DAILY 07/23/15 [History] levETIRAcetam [Keppra] 500 mg PO BID 07/23/15 [History] Aspirin 325 mg PO DAILY 11/13/15 [History] glipiZIDE [Glucotrol XL] 5 mg PO BIDD #60 tab.er 12/07/16 [Rx] oxyCODONE HCl [Oxycodone HCl] 15 mg PO BID PRN #20 tablet 02/17/17 [Rx] oxyCODONE HCl/Acetaminophen [Percocet 5-325 mg Tablet] 1 - 2 each PO Q4H PRN # 20 tablet 03/23/17 [Rx] Past Medical History HEENT History: Reports: Impaired Vision, Retinal Detachment Cardiovascular History: Reports: Hypertension Respiratory History: Reports: None Gastrointestinal History: Reports: None Genitourinary History: Reports: None Other Musculoskeletal History: RITA suffered a fracture and had screws and plates placed 2005 Neurological History: Reports: None Psychiatric History: Reports: Depression Endocrine/Metabolic History: Reports: Diabetes, Type II Other Endocrine/Metabolic History: Diabetes for the past year. Checks BS twice daily and takes a new med called Invokana Hematologic History: Reports: None Immunologic History: Reports: None Oncologic (Cancer) History: Reports: None Dermatologic History: Reports: Cellulitis Other Dermatologic History: Cellulitis to LLE - Infectious Disease History Infectious Disease History: Reports: None - Past Surgical History HEENT Surgical History: Reports: Detached Retina Social & Family History - Family History Family Medical History: Noncontributory - Tobacco Use Smoking Status *Q: Former Smoker Years of Tobacco use: 10 Packs/Tins Daily: 0.5 Used Tobacco, but Quit: Yes Month Tobacco Last Used: 37 years ago` Second Hand Smoke Exposure: No - Caffeine Use Caffeine Use: Reports: Soda - Alcohol Use Days Per Week of Alcohol Use: 0 Number of Drinks Per Day: 2 Total Drinks Per Week: 0 - Recreational Drug Use Recreational Drug Use: No - Living Situation & Occupation Living situation: Reports: Single Occupation: Disabled Review of Systems - Review of Systems Review Of Systems: See Below Constitutional: Reports: No Symptoms ED EXAM, GENERAL - Physical Exam Exam: See Below Exam Limited By: Other (He is a little offensive within describing his situation ) General Appearance: Alert, No Apparent Distress Course - Vital Signs Last Recorded V/S: Last Vital Signs Temp 35.6 C 05/14/17 00:44 Pulse 101 H 05/14/17 00:44 Resp 16 05/14/17 00:44 BP 144/82 H 05/14/17 00:44 Pulse Ox 98 05/14/17 00:44 - Re-Assessments/Exams Free Text/Narrative Re-Assessment/Exam: 05/14/17 00:59 I offered the patient Toradol as it is highly questionable what is going on. While getting ready to enter the dose of Toradol in the computer the patient decided to get up and leave. Departure - Departure Time of Disposition: 00:59 Disposition: Eloped 07 Clinical Impression: Arthritis of left hip - Discharge Information Referrals: PCP,None [Primary Care Provider] - Forms: ED Department Discharge
== END 2017-05-14 00:57 | disposition left against medical advice (07) ==
LOC: JD.ED 00:38
DX: M16.12 Unilateral primary osteoarthritis, left hip (principal); I10 Essential (primary) hypertension; E11.9 Type 2 diabetes mellitus without complications; F32.9 Major depressive disorder, single episode, unspecified; Z87.891 Personal history of nicotine dependence; Z79.84 Long term (current) use of oral hypoglycemic drugs; Z79.82 Long term (current) use of aspirin; Z79.02 Long term (current) use of antithrombotics/antiplatelets; Z79.01 Long term (current) use of anticoagulants; Z88.5 Allergy status to narcotic agent; Z88.8 Allergy status to other drugs, medicaments and biological substances
CPT/HCPCS: 99283

== ENCOUNTER 2017-05-14 18:06 | Emergency (ER) | payer MEDICAID ==
[2017-05-14 18:21] VITALS: BP 158/98
[2017-05-14] MEDS ORDERED: Ketorolac 60 MG/2 ML SDV IM ONE (19:55)
--- NOTE | 2017-05-14 19:58 | EDM.PDOC ---
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 He states that he has [id number] arthritis of his left hip, causing chronic pain. He states that he has been told that he can get a left total hip arthroplasty, but that if he does so, he would not be able to retain his left leg prosthesis. His pain is being managed by his PCP, Dr. Burkett. He states that he took his pain medication in excess of what was prescribed, running out early. He states that he saw Dr. Burkett last week, and was given a prescription for Percocet, however, he states that the pharmacy would not fill it because it was early. He states that he will not be able to get the prescription filled until 05/16/2017. He states that when he contacted the office of Dr. Burkett, he was told by the nurse to come to the ER, that we would take care of his pain. The ED, however, has not received a call from either Dr. Burkett or his nurse regarding this patient. The patient did not report to me that he was seen in this ED early this morning by Dr. Kim. Dr. Kim documented that he discussed with the patient that because the patient is under a pain contract, the emergency department is not in a position to dispense opioid medications. He documented that he offered the patient Toradol, but that as he was getting ready to enter the order in the computer, the patient left the ED without waiting for discharge instructions. Review of the [place] PMPi finds that the patient filled prescriptions for OxyContin 20 mg #120 (each a 30 day supply) on 04/27/2017 and 04/25/2017. He also filled a prescription for oxycodone 20 mg #120 (a 30 day supply) on 04/18/2017. All of these prescriptions were written by Dr. Burkett. In order for the patient to be out of these medications already, he would have had to have taken these medications far in excess of the dosage prescribed. The [place] PMPi also indicates that the patient has filled 143 prescriptions for controlled substances by 20 prescribers, filled at 11 pharmacies, since 2014. Many of these are written by emergency physicians well after it is apparent that Dr. Burkett was the patient's assigned single prescriber. Left Hip Pain Score (Numeric/FACES): 9 - Related Data Allergies Allergy/AdvReac Type Severity Reaction Status Date / Time tramadol Allergy Hives Verified 05/14/17 18:20 naproxen [From Naprosyn] AdvReac Nausea and Verified 05/14/17 18:20 Vomiting Home Meds: Home Meds Lisinopril 20 mg PO DAILY 11/23/14 [History] Canagliflozin/Metformin HCl [Invokamet 150-1,000 mg Tablet] 1 tab PO BID [History] Gabapentin [Neurontin] 700 mg PO BID 07/23/15 [History] Warfarin [Coumadin] 10 mg PO DAILY 07/23/15 [History] Past Medical History HEENT History: Reports: Impaired Vision, Retinal Detachment Cardiovascular History: Reports: Hypertension Musculoskeletal History: Reports: Osteoarthritis Psychiatric History: Reports: Depression Endocrine/Metabolic History: Reports: Diabetes, Type II Dermatologic History: Reports: Cellulitis (LLE) - Past Surgical History HEENT Surgical History: Reports: Detached Retina Musculoskeletal Surgical History: Reports: Amputation (left BKA 05/31/2016), Arthroscopic Knee (right), Hip Replacement (right, 1997), Shoulder Surgery ( right, arthroscopic), Other (See Below) (Left femur dane 1991) Social & Family History - Family History Family Medical History: Noncontributory - Tobacco Use Smoking Status *Q: Former Smoker Years of Tobacco use: 27 Packs/Tins Daily: 0.5 Month Tobacco Last Used: Quit 2009 Second Hand Smoke Exposure: No - Caffeine Use Caffeine Use: Reports: Coffee - Alcohol Use Alcohol Use History: No - Recreational Drug Use Recreational Drug Use: Yes Drug Use in Last 12 Months: Yes Recreational Drug Type: Reports: Oxycodone - Living Situation & Occupation Living situation: Reports: , with Spouse 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 Systems - Review of Systems Review Of Systems: See Below Constitutional: Reports: No Symptoms Eyes: Reports: No Symptoms Ears: Reports: No Symptoms Nose: Reports: No Symptoms Mouth/Throat: Reports: No Symptoms Respiratory: Reports: No Symptoms Cardiovascular: Reports: No Symptoms GI/Abdominal: Reports: No Symptoms Genitourinary: Reports: No Symptoms Musculoskeletal: Reports: Joint Pain (left hip, as per the HPI) Skin: Reports: No Symptoms Neurological: Reports: No Symptoms Psychiatric: Reports: No Symptoms ED EXAM, GENERAL - Physical Exam Exam: See Below Exam Limited By: No Limitations General Appearance: Alert, WD/WN, No Apparent Distress Extremities: Normal Inspection, Other (Left BKA with prosthesis) Neurological: Alert, Oriented Psychiatric: Normal Affect Skin Exam: Warm, Dry, Intact, Normal Color, No Rash Course - Vital Signs Last Recorded V/S: Last Vital Signs Temp 35.9 C 05/14/17 18:17 Pulse 102 H 05/14/17 18:17 Resp 16 05/14/17 18:17 BP 158/98 H 05/14/17 18:17 Pulse Ox 98 05/14/17 18:17 - Orders/Labs/Meds Meds: Medications Discontinued Medications Generic Name Dose Route Start Last Admin Trade Name Raquel PRN Reason Stop Dose Admin Ketorolac Tromethamine 60 mg 05/14/17 19:55 05/14/17 20:44 Toradol IM 05/14/17 19:56 Not Given ONETIME ONE - Re-Assessments/Exams Free Text/Narrative Re-Assessment/Exam: 05/14/17 19:[address] Kim this morning, I find that I cannot in good conscience provide opioid pain relief for the patient this time. He is under a pain contract with Dr. Yoon, and, by his own admission, has taken his medicines well in excess of the prescribed dose. This is an issue between the patient and Dr. Burkett. It does not constitute a medical emergency. This was carefully explained to the patient. I offered a shot of Toradol, which the patient accepted. I entered an order for Toradol 60 mg IM, however, immediately after entering the order, I noticed that the patient was walking out of the ED, without waiting for either the Toradol or his discharge instructions. Departure - Departure Time of Disposition: 19:57 Disposition: Eloped 07 Condition: Good Clinical Impression: Chronic left hip pain, Drug-seeking behavior - Discharge Information Instructions: Hip Pain, Chronic Pain Referrals: Venkat Burkett MD [Primary Care Provider] - Forms: ED Department Discharge
== END 2017-05-14 20:00 | disposition left against medical advice (07) ==
LOC: JD.ED 18:06
DX: G89.29 Other chronic pain (principal); M25.552 Pain in left hip; Z76.5 Malingerer [conscious simulation]; I10 Essential (primary) hypertension; E11.9 Type 2 diabetes mellitus without complications; F32.9 Major depressive disorder, single episode, unspecified; Z96.641 Presence of right artificial hip joint; Z87.891 Personal history of nicotine dependence; Z79.01 Long term (current) use of anticoagulants; Z79.899 Other long term (current) drug therapy; Z88.5 Allergy status to narcotic agent; Z88.6 Allergy status to analgesic agent
CPT/HCPCS: 99283; 99284

== ENCOUNTER 2017-09-26 18:19 | Emergency (ER) | payer MEDICAID, OTHER ==
[2017-09-26 18:52] VITALS: BP 127/98
--- NOTE | 2017-09-26 19:27 | EDM.PDOC ---
ED HPI GENERAL MEDICAL PROBLEM - General Chief Complaint: Lower Extremity Injury/Pain Stated Complaint: PAIN IN HIP Time Seen by Provider: 09/26/17 19:02 Source of Information: Reports: Patient, Old Records History Limitations: Reports: No Limitations - History of Present Illness INITIAL COMMENTS - FREE TEXT/NARRATIVE: The patient states that he is here for left groin pain. He states that he "tweaked it" when he slipped on ice this past 09/22/2017. He did not fall , but his left leg did slip outward. He states that his groin feels like a "toothache". This pain is made worse when he sits up. He states that he did not see his PCP about it over the week. When asked if there were any other concerns, the patient reports that he has had some diarrhea, otherwise, he denies recent fever, chills, cough, chest pain , shortness of breath, palpitations, nausea, vomiting, constipation, abdominal pain, recent weight gain or weight loss, headaches, joint aches, or rashes. The patient has a history of diabetes, but states that his blood sugars have been usual for him, between 89 and 94. Reviewing prior medical records, the patient has a well-documented history of drug-seeking behavior. He is currently under a pain contract with Dr. Burkett, and the [facility] finds that the patient had a prescription for oxycodone 10 mg # 88 tabs, a prescription intended to last him through 10/09/2017, filled on 2017. Left Hip Pain Score (Numeric/FACES): 8 - Related Data Allergies Allergy/AdvReac Type Severity Reaction Status Date / Time tramadol Allergy Hives Verified 05/14/17 18:20 naproxen [From Naprosyn] AdvReac Nausea and Verified 05/14/17 18:20 Vomiting Home Meds: Home Meds Lisinopril 20 mg PO DAILY 11/23/14 [History] Gabapentin [Neurontin] 700 mg PO BID 07/23/15 [History] Warfarin [Coumadin] 10 mg PO DAILY 07/23/15 [History] metFORMIN [Glucophage] 1,500 mg PO DAILY 09/26/17 [History] Past Medical History HEENT History: Reports: Impaired Vision, Retinal Detachment Cardiovascular History: Reports: Hypertension Musculoskeletal History: Reports: Osteoarthritis Psychiatric History: Reports: Depression Endocrine/Metabolic History: Reports: Diabetes, Type II Dermatologic History: Reports: Cellulitis (LLE) - Past Surgical History HEENT Surgical History: Reports: Detached Retina Musculoskeletal Surgical History: Reports: Amputation (left BKA 05/31/2016), Arthroscopic Knee (right), Hip Replacement (right, 1997), Shoulder Surgery ( right, arthroscopic), Other (See Below) (Left femur dane 1991) Social & Family History - Family History Family Medical History: Noncontributory - Tobacco Use Smoking Status *Q: Former Smoker Years of Tobacco use: 27 Packs/Tins Daily: 0.5 Month/Year Tobacco Last Used: Quit 2009 Second Hand Smoke Exposure: No - Caffeine Use Caffeine Use: Reports: Soda Other Caffeine Use: diet pop - Alcohol Use Alcohol Use History: No - Recreational Drug Use Recreational Drug Use: Yes Drug Use in Last 12 Months: Yes Recreational Drug Type: Reports: Oxycodone - Living Situation & Occupation Living situation: Reports: , with Spouse 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 ED EXAM, GENERAL - Physical Exam Exam: See Below Exam Limited By: No Limitations General Appearance: Alert, WD/WN, No Apparent Distress Eye Exam: Bilateral Eye: Normal Inspection Ears: Normal External Exam, Hearing Grossly Normal Nose: Normal Inspection, No Blood Throat/Mouth: Normal Inspection, Normal Lips, Normal Voice, No Airway Compromise Head: Atraumatic, Normocephalic Neck: Normal Inspection, Full Range of Motion Respiratory/Chest: No Respiratory Distress, Lungs Clear, Normal Breath Sounds, No Accessory Muscle Use Cardiovascular: Normal Peripheral Pulses, Regular Rate, Rhythm, No Gallop, No JVD, No Murmur, No Rub Peripheral Pulses: 4+: Radial (L), Radial (R) GI/Abdominal: Normal Bowel Sounds, Soft, Non-Tender, No Organomegaly, No Distention, No Abnormal Bruit, No Mass, Other (Obese) (Male) Exam: Deferred Rectal (Males) Exam: Deferred Extremities: Other (Left BKA. Stump well-perfused. There is tenderness to the left gracilis tendon, and some tenderness to the left buttock, however, there are no visible abnormality to either area, including swelling, erythema, ecchymosis, or abrasion.) Neurological: Alert, Oriented, Normal Cognition, No Motor/Sensory Deficits Psychiatric: Normal Affect Skin Exam: Warm, Dry, Intact, Normal Color, No Rash Course - Vital Signs Last Recorded V/S: Last Vital Signs Temp 36.4 C 09/26/17 18:51 Pulse 96 09/26/17 18:51 Resp 20 09/26/17 18:51 BP 127/98 H 09/26/17 18:51 Pulse Ox 98 09/26/17 18:51 - Re-Assessments/Exams Free Text/Narrative Re-Assessment/Exam: 09/26/17 19:25 The patient appears to have strained his left groin and left buttock muscles, however, even by the patient's own admission, his injuries are minor. As he did not fall, I do not see an indication for imaging studies. This was explained to the patient. I'm recommending that he rest his left lower extremity over the weekend, and that if he still has pain by 09/29/2017, that he follow-up with his PCP. While the patient did not specifically ask for a pain medication, he has a well- documented history of drug-seeking behavior, and when he is unable to explain why he has come to the ED, other than mild pain, it is likely that he came today with the intent of drug-seeking. 09/26/17 19:33 Notified by Michelle REED that the patient left the ED without waiting for his discharge instructions. Departure - Departure Time of Disposition: 19:24 Disposition: Home, Self-Care 01 Condition: Good Clinical Impression: Muscle strain - Discharge Information Referrals: Venkat Burkett MD [Physician] - Forms: ED Department Discharge Additional Instructions: You were seen in the Emergency room for left groin and left buttock pain after slipping on ice on 09/22/2017. On examination, it is MOST LIKELY that you have strained your left groin and left buttock muscles. Unfortunately, there are no imaging studies available from the ER to confirm this. X-rays show bones, not muscles. We recommend that you rest your left lower extremity over the weekend, and if you continue to have pain by 09/29/2017, that you follow-up with your PCP. If any other problems, please do not hesitate to return to the ER.
== END 2017-09-26 19:32 | disposition home or self-care (01) ==
LOC: JD.ED 18:19
DX: S39.011A Strain of muscle, fascia and tendon of abdomen, initial encounter (principal); S39.012A Strain of muscle, fascia and tendon of lower back, initial encounter; E11.9 Type 2 diabetes mellitus without complications; I10 Essential (primary) hypertension; M19.90 Unspecified osteoarthritis, unspecified site; Z79.84 Long term (current) use of oral hypoglycemic drugs; Z88.5 Allergy status to narcotic agent; Z88.8 Allergy status to other drugs, medicaments and biological substances; Z79.01 Long term (current) use of anticoagulants; Z79.899 Other long term (current) drug therapy; Z87.891 Personal history of nicotine dependence; W00.0XXA Fall on same level due to ice and snow, initial encounter
CPT/HCPCS: 99282; 99283

== ENCOUNTER 2017-09-27 04:49 | Emergency (ER) | payer OTHER ==
[2017-09-27 05:03] VITALS: BP 118/79
--- NOTE | 2017-09-27 05:29 | EDM.PDOC ---
ED HPI GENERAL MEDICAL PROBLEM - General Chief Complaint: Lower Extremity Injury/Pain Stated Complaint: HIP PAIN Time Seen by Provider: 09/27/17 05:08 Source of Information: Reports: Patient, Old Records History Limitations: Reports: No Limitations - History of Present Illness INITIAL COMMENTS - FREE TEXT/NARRATIVE: The patient was seen by me earlier this shift with a complaint of left groin pain. He states that he slipped on ice this past 09/22/2017, causing his left leg to slipped sideways, causing some strain to his groin. He stated at the time that he did not fall, but is implying at this time that he in fact did fall to his left knee. In either case, however, he did not fall onto his left buttock or hip. He reported earlier that his groin it felt like a "toothache". His pain was made worse by sitting up. He did not see his PCP over the course of this past week. On examination earlier this shift, the patient had left gracilis tendon tenderness as well as mild left buttock tenderness, but no visible abnormalities to either area, such as swelling, erythema, ecchymosis, or abrasion. I explained to the patient that he likely strained his left groin and left buttock muscles, and recommended rest over the weekend. If his symptoms persisted by Friday, I recommended that he follow-up with his PCP. The patient then left the ED without waiting for discharge instructions. The patient now returns complaining of continued left groin pain, stating that he can't sleep. When asked why he left the ED without waiting for his discharge instructions, he stated that he thought the nurse was going to bring them to him - after he left the ED. The patient has a well-documented history of drug seeking behavior. He is currently under a pain contract with Dr. Burkett, and the [place] [facility] finds that the patient had a prescription for oxycodone 10 mg #88 tabs, a prescription intended to last him through 10/09/2017, filled on 09/17/2017. Of additional interest, when the patient was seen in the ED earlier this shift, his was also seen at the same time by Elizabeth Anderson. She was here stating that she lost her pain medications, requesting a refill. Left Hip Pain Score (Numeric/FACES): 8 - Related Data Allergies Allergy/AdvReac Type Severity Reaction Status Date / Time tramadol Allergy Hives Verified 09/27/17 05:02 naproxen [From Naprosyn] AdvReac Nausea and Verified 09/27/17 05:02 Vomiting Home Meds: Home Meds Lisinopril 20 mg PO DAILY 11/23/14 [History] Gabapentin [Neurontin] 700 mg PO BID 07/23/15 [History] Warfarin [Coumadin] 10 mg PO DAILY 07/23/15 [History] metFORMIN [Glucophage] 1,500 mg PO DAILY 09/26/17 [History] Past Medical History HEENT History: Reports: Impaired Vision, Retinal Detachment Cardiovascular History: Reports: Hypertension Musculoskeletal History: Reports: Osteoarthritis Psychiatric History: Reports: Depression Endocrine/Metabolic History: Reports: Diabetes, Type II Dermatologic History: Reports: Cellulitis (LLE) - Past Surgical History HEENT Surgical History: Reports: Detached Retina Musculoskeletal Surgical History: Reports: Amputation (left BKA 05/31/2016), Arthroscopic Knee (right), Hip Replacement (right, 1997), Shoulder Surgery ( right, arthroscopic), Other (See Below) (Left femur dane 1991) Social & Family History - Family History Family Medical History: Noncontributory - Tobacco Use Smoking Status *Q: Former Smoker Years of Tobacco use: 27 Packs/Tins Daily: 0.5 Month/Year Tobacco Last Used: Quit 2009 Second Hand Smoke Exposure: No - Caffeine Use Caffeine Use: Reports: Soda Other Caffeine Use: diet pop - Alcohol Use Alcohol Use History: No - Recreational Drug Use Recreational Drug Use: Yes Drug Use in Last 12 Months: Yes Recreational Drug Type: Reports: Oxycodone - Living Situation & Occupation Living situation: Reports: , with Spouse 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 ED EXAM, GENERAL - Physical Exam Exam: See Below Exam Limited By: No Limitations General Appearance: Alert, WD/WN, No Apparent Distress Extremities: Other (Left BKA. Stump well-perfused. Unchanged tenderness to palpation of the left gracilis tendon, and some tenderness of left buttock, however, no visible abnormalities to either area, including swelling, erythema, ecchymosis, or abrasion.) Course - Vital Signs Last Recorded V/S: Last Vital Signs Temp 36.3 C 09/27/17 04:59 Pulse 90 09/27/17 04:59 Resp 16 09/27/17 04:59 BP 118/79 09/27/17 04:59 Pulse Ox 100 09/27/17 04:59 - Orders/Labs/Meds Orders: Active Orders 24 hr Category Date Time Status Hip Min 1V w Pelvis Lt [CR] Stat Exams 09/27/17 05:21 Taken - Re-Assessments/Exams Free Text/Narrative Re-Assessment/Exam: 09/27/17 05:33 I explained to the patient that tendon strain is a clinical diagnosis, and that there are no blood tests or imaging studies that will help prove that, other than, perhaps, a MRI, which is not available from the ER. I recommended, as I had when I saw him earlier, that he rest over the weekend, and he was still symptomatic by Friday, to follow-up with his PCP. The patient requested an x- ray of the area. I explained that x-rays show bones, not soft tissues, however, he still wanted an x-ray. I therefore ordered an x-ray of the left hip and pelvis. 09/27/17 05:52 4 view radiographs of the pelvis and left hip appear to demonstrate a total right hip arthroplasty and plate fixation of the left femur. There is significant degenerative joint disease of the left hip. No fracture or dislocation identified. Formal read per the Radiologist pending. 09/27/17 06:32 X-ray results discussed with the patient. As before, I am still recommending that the patient rest his left lower extremity over the weekend, and if his symptoms persist, to follow-up with his PCP this coming week. As before, I strongly suspect that the patient's presentation is an effort to acquire additional narcotic pain medication. Departure - Departure Time of Disposition: 06:33 Disposition: Home, Self-Care 01 Condition: Good Clinical Impression: Muscle strain - Discharge Information Referrals: Venkat Burkett MD [Physician] - Forms: ED Department Discharge Additional Instructions: You were seen in the Emergency room for left groin and left buttock pain after slipping on ice on 09/22/2017. On examination, it is MOST LIKELY that you have strained your left groin and left buttock muscles. Workup in the ER included x-rays of your hip and pelvis, which show a right hip replacement and left femur fixation, along with significant arthritis of the left hip, but no new broken bones. Unfortunately, there are no imaging studies available from the ER to confirm muscle strains. X-rays show bones, not muscles. We recommend that you rest your left lower extremity over the weekend, and if you continue to have pain by 09/29/2017, that you follow-up with Dr. [facility]ett [facility] If any other problems, please do not hesitate to return to the ER. - My Orders Last 24 Hours: My Active Orders 09/27/17 05:21 Hip Min 1V w Pelvis Lt [CR] Stat - Assessment/Plan Last 24 Hours: My Active Orders 09/27/17 05:21 Hip Min 1V w Pelvis Lt [CR] Stat
--- NOTE | 2017-09-28 16:53 | CR ---
Pelvis and left hip: AP view of the pelvis was obtained as well as AP and frog-leg lateral views of the left hip. Comparison: Prior pelvis and left hip exam dated 03/13/17. Severe degenerative change is noted within the left hip with joint space narrowing and subchondral cysts as well as osteophytes and mild remodeling of the left hip. Orthopedic hardware is noted affixing old healed fracture within the left hip. Right hip prosthesis is noted. Degenerative change is partially visualized within the lower lumbar spine. Sacroiliac joint on the right side shows mild vacuum phenomena. Impression: 1. Degenerative change as noted above. Other incidental findings. Diagnostic code #3
== END 2017-09-27 06:50 | disposition home or self-care (01) ==
LOC: JD.ED 04:49
DX: S39.011A Strain of muscle, fascia and tendon of abdomen, initial encounter (principal); I10 Essential (primary) hypertension; M19.90 Unspecified osteoarthritis, unspecified site; E11.9 Type 2 diabetes mellitus without complications; F32.9 Major depressive disorder, single episode, unspecified; M25.552 Pain in left hip; Z87.891 Personal history of nicotine dependence; Z88.5 Allergy status to narcotic agent; Z88.8 Allergy status to other drugs, medicaments and biological substances; Z79.899 Other long term (current) drug therapy; Z79.01 Long term (current) use of anticoagulants; W00.0XXA Fall on same level due to ice and snow, initial encounter; Z89.512 Acquired absence of left leg below knee
CPT/HCPCS: 73501-26-LT; 73501-LT; 99283

== ENCOUNTER 2017-12-27 11:12 | Emergency (ER) | payer OTHER ==
[2017-12-27 11:22] VITALS: BP 132/77
[2017-12-27] MEDS ORDERED: Ondansetron 4 MG Tab.DIS PO ONE (11:40)
[2017-12-27] MEDS ORDERED: Haloperidol Lactate 5 MG/ML SDV IM ONE (11:40)
[2017-12-27] MEDS ORDERED: diphenhydrAMINE 50 MG/ML SDV IM ONE (11:40)
[2017-12-27] MEDS ORDERED: Ketorolac 30 MG/ML SDV IM ONE (11:40)
--- NOTE | 2017-12-27 11:49 | EDM.PDOC ---
ED HPI GENERAL MEDICAL PROBLEM - General Chief Complaint: Headache Stated Complaint: MIGRAINE Time Seen by Provider: 12/27/17 11:29 Source of Information: Reports: Patient History Limitations: Reports: No Limitations - History of Present Illness INITIAL COMMENTS - FREE TEXT/NARRATIVE: Patient is a 57-year-old male presents ED complaining of a frontal headache right greater than left retro-orbital gradual onset rated 8 out of 10. Has some photophobia associated with discomfort with no vision loss. States this started yesterday and has progressively gotten worse.Had one episode of nausea and vomiting yesterday and has since been able to drink and eat with no issues. Denies any sensory or motor deficits since onset of the headache. There's been no known factors contributing to this including: Recent illness, change in medications, or any activities, trauma that precipitated this. He denies any sinus congestion, runny nose, postnasal drip, ear pain, chest pain, shortness of breath, cough, fever, stiff neck, numbness or tingling to extremities, or any additional complaints. 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 He also has a history of multiple blood clots thus is on Coumadin. Current medications include lisinopril, gabapentin, warfarin, and metformin. Frontal Headache Pain Score (Numeric/FACES): 9 - Related Data Allergies Allergy/AdvReac Type Severity Reaction Status Date / Time tramadol Allergy Hives Verified 09/27/17 05:02 naproxen [From Naprosyn] AdvReac Nausea and Verified 09/27/17 05:02 Vomiting Home Meds: Home Meds Lisinopril 20 mg PO DAILY 11/23/14 [History] Gabapentin [Neurontin] 700 mg PO BID 07/23/15 [History] Warfarin [Coumadin] 10 mg PO DAILY 07/23/15 [History] metFORMIN [Glucophage] 1,500 mg PO DAILY 09/26/17 [History] Past Medical History HEENT History: Reports: Impaired Vision, Retinal Detachment Cardiovascular History: Reports: High Cholesterol, Hypertension Respiratory History: Reports: None Gastrointestinal History: Reports: None Genitourinary History: Reports: UTI, Recurrent Musculoskeletal History: Reports: Osteoarthritis Other Musculoskeletal History: RITA suffered a fracture and had screws and plates placed 2004 Neurological History: Reports: None Psychiatric History: Reports: Depression Endocrine/Metabolic History: Reports: Diabetes, Type II Other Endocrine/Metabolic History: Diabetes for the past year. Checks BS twice daily and takes a new med called Invokana Hematologic History: Reports: None Immunologic History: Reports: None Oncologic (Cancer) History: Reports: None Dermatologic History: Reports: Cellulitis Other Dermatologic History: Cellulitis to LLE - Infectious Disease History Infectious Disease History: Reports: None - Past Surgical History HEENT Surgical History: Reports: Detached Retina Musculoskeletal Surgical History: Reports: Amputation, Arthroscopic Knee, Hip Replacement, Shoulder Surgery, Other (See Below) Social & Family History - Family History Family Medical History: Noncontributory - Tobacco Use Smoking Status *Q: Never Smoker - Caffeine Use Caffeine Use: Reports: Soda Other Caffeine Use: diet pop - Recreational Drug Use Recreational Drug Use: No - Living Situation & Occupation Living situation: Reports: , with Spouse 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 Denies: Abdominal Pain, Constipation, Diarrhea, Decreased Appetite : Reports: No Symptoms Musculoskeletal: Reports: No Symptoms Skin: Reports: No Symptoms Neurological: Reports: Headache. Denies: Dizziness, Numbness, Pre-Existing Deficit, Tingling, Difficulty Walking, Weakness - Physical Exam Exam: See Below Exam Limited By: No Limitations General Appearance: Alert, WD/WN, No Apparent Distress Eye Exam: Bilateral Eye: Normal Inspection, PERRL Ears: Hearing Grossly Normal Nose: Normal Inspection Throat/Mouth: Normal Voice, No Airway Compromise Head Exam: Atraumatic, Normocephalic Neck: Normal Inspection, Supple, Non-Tender, Full Range of Motion Respiratory/Chest: No Respiratory Distress, Lungs Clear, Normal Breath Sounds, No Accessory Muscle Use, Chest Non-Tender Cardiovascular: Normal Peripheral Pulses, Regular Rate, Rhythm, No Murmur GI/Abdominal: Normal Bowel Sounds, Soft, Non-Tender, No Organomegaly, No Distention Neuro Exam (Abbreviated): Alert, Oriented, CN II-XII Intact, Normal Cognition, No Motor/Sensory Deficits, Other (No facial droop, slurred speech, tongue deviation, pronator drift, and or nystagmus. No weakness discrepancies to the upper/lower extremities. Cerebellar fx intact: finger to nose, and rapid alternating movements. ). No: Normal Gait (uses a cane to ambulate) Back Exam: Normal Inspection Extremities: Other (Prosthetic lower left leg. ) Psychiatric: Normal Affect, Normal Mood Skin Exam: Warm, Dry, Intact, Normal Color, No Rash Course - Vital Signs Last Recorded V/S: Last Vital Signs Temp 96.4 F 12/27/17 11:19 Pulse 85 12/27/17 11:19 Resp 18 12/27/17 11:19 BP 132/77 12/27/17 11:19 Pulse Ox 99 12/27/17 11:19 - Orders/Labs/Meds Meds: Medications Discontinued Medications Generic Name Dose Route Start Last Admin Trade Name Josephq PRN Reason Stop Dose Admin Diphenhydramine HCl 50 mg 12/27/17 11:40 12/27/17 11:58 Benadryl IM 12/27/17 11:41 50 mg ONETIME ONE Administration Haloperidol Lactate 7 mg 12/27/17 11:40 12/27/17 11:57 Haldol IM 12/27/17 11:41 7 mg ONETIME ONE Administration Ketorolac Tromethamine 30 mg 12/27/17 11:40 12/27/17 11:58 Toradol IM 12/27/17 11:41 30 mg ONETIME ONE Administration Ondansetron HCl 4 mg 12/27/17 11:40 12/27/17 11:56 Zofran Odt PO 12/27/17 11:41 4 mg ONETIME ONE Administration - Re-Assessments/Exams Free Text/Narrative Re-Assessment/Exam: Patient has right and left sided retroorbital headache r>l with photophobia and one episode of emesis yesterday. Patient has been eating and drinking since with no issues. Patient has not taken anything for the headache. States the headache was gradual onset with no clear reason for onset. Refuses labs and or imaging. Discussed abortive therapies for headache to include: haldol 7 mg IM, benadryl 50mg IM, zofran 4mgODT, and low dose toradol 30mg IM. He agrees with treatment. Side effects of medications have been discussed with the patient. With questioning current medications being taken. Patient did not disclose taking ambien and also oxycodone. Patient last filled ambien 12/26/2017 and oxycodone 12/09/2017 per [facility] database. 12/27/17 12:32 reassessment, patient resting comfortably in bed. States headache is trending downward. He is ready be discharged home. Discharge instructions were discussed with the patient. Return precautions were discussed as well. He had no further questions and or concerns. Departure - Departure Time of Disposition: 12:31 Disposition: Home, Self-Care 01 Condition: Good Clinical Impression: Headache Qualifiers: Headache type: unspecified Headache chronicity pattern: acute headache Intractability: not intractable Qualified Code(s): R51 - Headache - Discharge Information Instructions: General Headache Without Cause Referrals: PCP,None [Ordering Only Provider] - Forms: ED Department Discharge Additional Instructions: Suggest going home and finding a dark room to sleep and with no distractions. Push the fluids. May utilize Tylenol and ibuprofen in alternating fashion for headache. Take the ibuprofen with food plenty of liquids. Follow-up with your primary care provider the first part of this week for reevaluation. Return to the ED if you develop any new or worsening symptoms as discussed.
== END 2017-12-27 12:23 | disposition home or self-care (01) ==
LOC: JD.ED 11:12
DX: R51 Headache (principal); E78.00 Pure hypercholesterolemia, unspecified; I10 Essential (primary) hypertension; E11.9 Type 2 diabetes mellitus without complications; Z88.5 Allergy status to narcotic agent; Z88.6 Allergy status to analgesic agent; Z79.84 Long term (current) use of oral hypoglycemic drugs; Z79.01 Long term (current) use of anticoagulants; Z79.899 Other long term (current) drug therapy
CPT/HCPCS: 96372; 99284; A9270; J1200; J1630; J1885; 99283

== ENCOUNTER 2017-12-28 20:09 | Emergency (ER) | payer OTHER ==
[2017-12-28 20:18] VITALS: BP 150/84
--- NOTE | 2017-12-28 20:54 | EDM.PDOC ---
ED HPI GENERAL MEDICAL PROBLEM - General Chief Complaint: Lower Extremity Injury/Pain Stated Complaint: GROIN PAIN Time Seen by Provider: 12/28/17 20:47 Source of Information: Reports: Patient History Limitations: Reports: No Limitations - History of Present Illness INITIAL COMMENTS - FREE TEXT/NARRATIVE: The patient is a 57-year-old male who presents with a chief complaint of left hip pain. He does have a history of prior hip injury and also has a distal left lower extremity amputation and walks with a prosthesis. He states that he slipped on some stairs last evening and has been having increased pain in the head. He is still able to ambulate with his cane as usual. Pain is moderate, located in the left hip, denies additional pain or injury. Denies recent illness. He told me that he has not taken anything for pain. I asked him if he takes any stronger pain medications and he said no. States that his primary care provider [facility] with [facility] and will provide a specific name. Left Hip Pain Score (Numeric/FACES): 9 - Related Data Allergies Allergy/AdvReac Type Severity Reaction Status Date / Time tramadol Allergy Hives Verified 09/27/17 05:02 naproxen [From Naprosyn] AdvReac Nausea and Verified 09/27/17 05:02 Vomiting Home Meds: Home Meds Lisinopril 20 mg PO DAILY 11/23/14 [History] Gabapentin [Neurontin] 700 mg PO BID 07/23/15 [History] Warfarin [Coumadin] 10 mg PO DAILY 07/23/15 [History] metFORMIN [Glucophage] 1,500 mg PO DAILY 09/26/17 [History] Past Medical History HEENT History: Reports: Impaired Vision, Retinal Detachment Cardiovascular History: Reports: High Cholesterol, Hypertension Respiratory History: Reports: None Gastrointestinal History: Reports: None Genitourinary History: Reports: UTI, Recurrent Musculoskeletal History: Reports: Osteoarthritis Other Musculoskeletal History: RITA suffered a fracture and had screws and plates placed 2004 Neurological History: Reports: None Psychiatric History: Reports: Depression Endocrine/Metabolic History: Reports: Diabetes, Type II Other Endocrine/Metabolic History: Diabetes for the past year. Checks BS twice daily and takes a new med called Invokana Hematologic History: Reports: None Immunologic History: Reports: None Oncologic (Cancer) History: Reports: None Dermatologic History: Reports: Cellulitis Other Dermatologic History: Cellulitis to LLE - Infectious Disease History Infectious Disease History: Reports: None - Past Surgical History HEENT Surgical History: Reports: Detached Retina Musculoskeletal Surgical History: Reports: Amputation, Arthroscopic Knee, Hip Replacement, Shoulder Surgery, Other (See Below) Social & Family History - Family History Family Medical History: Noncontributory - Tobacco Use Smoking Status *Q: Never Smoker - Caffeine Use Caffeine Use: Reports: None Other Caffeine Use: diet pop - Recreational Drug Use Recreational Drug Use: No - Living Situation & Occupation Living situation: Reports: , with Spouse 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 Systems - Review of Systems Review Of Systems: See Below Constitutional: Denies: Fever Eyes: Reports: No Symptoms Respiratory: Denies: Shortness of Breath Cardiovascular: Denies: Chest Pain GI/Abdominal: Denies: Abdominal Pain Musculoskeletal: Reports: Leg Pain Skin: Reports: No Symptoms ED EXAM, GENERAL - Physical Exam Exam: See Below Exam Limited By: No Limitations General Appearance: Alert, WD/WN, No Apparent Distress Eye Exam: Bilateral Eye: EOMI, Normal Inspection, PERRL Ears: Normal External Exam Nose: Normal Inspection Throat/Mouth: Normal Inspection, Normal Oropharynx, Normal Voice, No Airway Compromise Head: Atraumatic, Normocephalic Neck: Normal Inspection, Supple, Non-Tender, Full Range of Motion Respiratory/Chest: No Respiratory Distress Cardiovascular: Normal Peripheral Pulses GI/Abdominal: Soft, Non-Tender, No Distention Back Exam: Normal Inspection Extremities: Normal Inspection, Normal Range of Motion, Other (Mild tenderness in the left groin/hip area, full range of motion, able to ambulate, no deformities.) Neurological: Alert, Oriented, Normal Cognition, No Motor/Sensory Deficits Psychiatric: Normal Affect, Normal Mood Skin Exam: Warm, Dry, Intact, Normal Color, No Rash Course - Vital Signs Last Recorded V/S: Last Vital Signs Temp 35.8 C 12/28/17 20:16 Pulse 112 H 12/28/17 20:16 Resp 18 12/28/17 20:16 BP 150/84 H 12/28/17 20:16 Pulse Ox 95 12/28/17 20:16 - Orders/Labs/Meds Orders: Active Orders 24 hr Category Date Time Status Hip Min 2V or 3V w Pelvis Lt [CR] Stat Exams 12/28/17 21:00 Taken Meds: Medications Discontinued Medications Generic Name Dose Route Start Last Admin Trade Name Raquel LINDQUIST Reason Stop Dose Admin Acetaminophen 650 mg 12/28/17 21:00 12/28/17 21:07 Tylenol PO 12/28/17 21:01 650 mg NOW ONE Administration - Re-Assessments/Exams Free Text/Narrative Re-Assessment/Exam: 12/28/17 21:43 When I initially asked patient to his primary care provider was, he did not provide any name but just stated that he [facility] and he wasn't sure who. I asked him multiple times whether or not he ever took medications for pain and he denied taking any stronger pain medications or any pain medication at all for that matter. I reviewed the [facility] on him and it states that on December 09 of this year he filled 120 tablets of oxycodone 10 mg and 120 tablets of 15 [address] prescribed by Dr. Cavazos. When I mention this patient stated that yes he did remember filling these medications. He states that his caregiver Ms. Uribe manages his medications and that he was out of the medications that he's not sure why. I explained to him that that sounded like a big problem as narcotics are a controlled substance and that if he is missing his medication sooner than he should that he should contact the police. He was not interested in contacting the police. He denied taking more of his narcotic than prescribed. I again emphasized that if this is all true that he ought to contact the police and that any further medication refills would need to come from Dr. Varela. Meanwhile his left hip x-ray shows degenerative changes, orthopedic hardware present in the hip, no acute fracture or other abnormality. He has no infectious symptoms. Will discharge. Departure - Departure Time of Disposition: 21:46 Disposition: Home, Self-Care 01 Clinical Impression: Chronic left hip pain - Discharge Information Referrals: PCP,None [Primary Care Provider] - Forms: ED Department Discharge Additional Instructions: 1. Take tylenol as needed for pain 2. Follow up with Dr. Burkett as soon as possible for further care 3. If you are missing oxycodone and you are concerned that someone else has taken them from you, please contact the police. Oxycodone is a controlled substance. The Emergency Department can not manage your narcotic prescriptions for you. - My Orders Last 24 Hours: My Active Orders 12/28/17 21:00 Hip Min 2V or 3V w Pelvis Lt [CR] Stat - Assessment/Plan Last 24 Hours: My Active Orders 12/28/17 21:00 Hip Min 2V or 3V w Pelvis Lt [CR] Stat
[2017-12-28] MEDS ORDERED: Acetaminophen 325 MG Tab PO ONE (21:00)
--- NOTE | 2017-12-30 14:31 | CR ---
Pelvis and left hip: AP view of the pelvis was obtained as well as frog-leg lateral view of the left hip. Comparison: Prior pelvis and left hip exam of 09/27/17. Right hip prosthesis is seen. Plate and screws are noted within the proximal left femur. Severe joint space narrowing is noted within the left hip with subchondral cysts. Slight degenerative change is partially visualized within the lower lumbar spine. Sacroiliac joint on the right side shows vacuum phenomena inferiorly. No fracture or other acute abnormality is seen. Incidental vascular calcification is seen. Impression: 1. Degenerative change and other findings. No acute abnormality is appreciated on AP pelvis or on frog-leg lateral left hip exam. Diagnostic code #3
== END 2017-12-28 21:53 | disposition home or self-care (01) ==
LOC: JD.ED 20:09
DX: M25.552 Pain in left hip (principal); G89.29 Other chronic pain; E11.9 Type 2 diabetes mellitus without complications; I10 Essential (primary) hypertension; Z88.8 Allergy status to other drugs, medicaments and biological substances; Z79.899 Other long term (current) drug therapy; Z79.01 Long term (current) use of anticoagulants; Z79.84 Long term (current) use of oral hypoglycemic drugs
CPT/HCPCS: 73502; 99283; A9270

== ENCOUNTER 2018-09-04 08:56 | Emergency (ER) | payer MEDICAID ==
[2018-09-04 09:11] VITALS: BP 154/91
[2018-09-04] MEDS ORDERED: Ketorolac 30 MG/ML SDV IM ONE (10:35)
--- NOTE | 2018-09-04 10:37 | EDM.PDOC ---
ED HPI GENERAL MEDICAL PROBLEM - General Chief Complaint: Lower Extremity Injury/Pain Stated Complaint: FALL, HIP PAIN AND SHOULDER PAIN Time Seen by Provider: 09/04/18 10:20 Source of Information: Reports: Patient, RN Notes Reviewed History Limitations: Reports: No Limitations - History of Present Illness INITIAL COMMENTS - FREE TEXT/NARRATIVE: Patient is a 58-year-old male who has come to the ED for evaluation of left hip pain. The patient states that he fell in the [employer] grocery store on Friday evening. He hit his left hip left elbow and left hand. Since then he has been having increased pain in his left hip also in his left thumb. He states that he has a history of an ORIF to the left femur around 8 years ago so he states he always normally has some pain in this area. He also has a history of an above knee amputation and wears a lower leg prosthesis for this on the left side. He states that he has been taking Tylenol and ibuprofen for this pain and it has not provided much relief. He states that he has been resting the hip, and using ice packs as well to the area. He would state that his pain as an 8 or 9 out of 10 today. He was worried about the possibility of maybe fracturing his left hip. He states the pain is very similar to the pain he felt when he fractured his hip previously. Left Hip Pain Score (Numeric/FACES): 2 - Related Data Allergies Allergy/AdvReac Type Severity Reaction Status Date / Time tramadol Allergy Hives Verified 09/04/18 09:11 naproxen [From Naprosyn] AdvReac Nausea and Verified 09/04/18 09:11 Vomiting Home Meds: Home Meds Lisinopril 20 mg PO DAILY 11/23/14 [History] Gabapentin [Neurontin] 800 mg PO BID 07/23/15 [History] Warfarin [Coumadin] 10 mg PO DAILY 07/23/15 [History] metFORMIN [Glucophage] 1,500 mg PO DAILY 09/26/17 [History] Pravastatin [Pravachol] 20 mg PO DAILY 09/04/18 [History] hydroCHLOROthiazide [Hydrochlorothiazide] 12.5 mg PO DAILY 09/04/18 [History] oxyCODONE HCl/Acetaminophen [Percocet 5-325 mg Tablet] 1 each PO Q6H PRN #24 tablet 09/04/18 [Rx] Past Medical History HEENT History: Reports: Impaired Vision, Retinal Detachment Cardiovascular History: Reports: High Cholesterol, Hypertension Respiratory History: Reports: None Gastrointestinal History: Reports: None Genitourinary History: Reports: UTI, Recurrent Musculoskeletal History: Reports: Osteoarthritis Other Musculoskeletal History: RITA suffered a fracture and had screws and plates placed 2004 Neurological History: Reports: None Psychiatric History: Reports: Depression Endocrine/Metabolic History: Reports: Diabetes, Type II Other Endocrine/Metabolic History: Diabetes for the past year. Checks BS twice daily and takes a new med called Invokana Hematologic History: Reports: None Immunologic History: Reports: None Oncologic (Cancer) History: Reports: None Dermatologic History: Reports: Cellulitis Other Dermatologic History: Cellulitis to LLE - Infectious Disease History Infectious Disease History: Reports: None - Past Surgical History HEENT Surgical History: Reports: Detached Retina Musculoskeletal Surgical History: Reports: Amputation, Arthroscopic Knee, Hip Replacement, Shoulder Surgery, Other (See Below) Social & Family History - Family History Family Medical History: Noncontributory - Tobacco Use Smoking Status *Q: Current Every Day Smoker Years of Tobacco use: 5 Packs/Tins Daily: 0.1 Second Hand Smoke Exposure: Yes - Caffeine Use Caffeine Use: Reports: None Other Caffeine Use: diet pop - Recreational Drug Use Recreational Drug Use: No - Living Situation & Occupation Living situation: Reports: , with Spouse 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 Systems - Review of Systems Review Of Systems: See Below Constitutional: Reports: No Symptoms Eyes: Reports: No Symptoms Ears: Reports: No Symptoms Nose: Reports: No Symptoms Mouth/Throat: Reports: No Symptoms Respiratory: Reports: No Symptoms Cardiovascular: Reports: No Symptoms GI/Abdominal: Reports: No Symptoms Genitourinary: Reports: No Symptoms Musculoskeletal: Reports: Joint Pain (left hip, left thumb), Joint Swelling ( left hip and left thumb) Skin: Reports: No Symptoms Neurological: Denies: Numbness, Tingling Psychiatric: Reports: No Symptoms ED EXAM, GENERAL - Physical Exam Exam: See Below Exam Limited By: No Limitations General Appearance: Alert, WD/WN Ears: Normal External Exam Nose: Normal Inspection Throat/Mouth: Normal Inspection, Normal Oropharynx, No Airway Compromise Head: Atraumatic, Normocephalic Neck: Normal Inspection Respiratory/Chest: No Respiratory Distress, Lungs Clear, Normal Breath Sounds, No Accessory Muscle Use, Chest Non-Tender Cardiovascular: Normal Peripheral Pulses, Regular Rate, Rhythm, No Murmur GI/Abdominal: Normal Bowel Sounds, Soft, Non-Tender, No Distention Back Exam: Normal Inspection, Full Range of Motion Extremities: Normal Inspection, Normal Range of Motion (of left hip), No Pedal Edema, Limited Range of Motion (of left thumb, this is limited due to pain. I believe he may have strained a ligament, causing the pain. There is mild swelling noted to the PIP of the left thumb.), Other (pt has an AKA of the left leg, with lower leg prosthesis noted.) Neurological: Alert, Oriented, Normal Cognition, No Motor/Sensory Deficits Psychiatric: Normal Affect, Normal Mood Skin Exam: Warm, Dry, Intact, Normal Color, No Rash Course - Vital Signs Last Recorded V/S: Last Vital Signs Temp 97.5 F 09/04/18 09:05 Pulse 103 H 09/04/18 09:05 Resp 18 09/04/18 09:05 BP 154/91 H 09/04/18 09:05 Pulse Ox 100 09/04/18 09:05 - Orders/Labs/Meds Meds: Medications Discontinued Medications Generic Name Dose Route Start Last Admin Trade Name Freq PRN Reason Stop Dose Admin Ketorolac Tromethamine 30 mg 09/04/18 10:35 09/04/18 10:51 Toradol IM 09/04/18 10:36 30 mg ONETIME ONE Administration - Radiology Interpretation Free Text/Narrative:: Official radiology impression states that there is degenerative change within the hip. No acute fracture noted. No injury to the hardware in his left femur from the ORIF - Re-Assessments/Exams Free Text/Narrative Re-Assessment/Exam: 09/04/18 11:00 Pt presents to the ED for Left hip/shoulder pain. Hip X-ray demonstrates no acute fracture. I have ordered 30 mg IM Toradol for pain relief. X-rays were reviewed with Dr. Mcarthur. I will inform him that his hip is not broken, His hip is bone on bone, I will send him something for pain. This will be prescribed to [facility]. Departure - Departure Time of Disposition: 11:18 Disposition: Home, Self-Care 01 Condition: Fair Clinical Impression: Contusion of left hip Qualifiers: Encounter type: initial encounter Qualified Code(s): S70.02XA - Contusion of left hip, initial encounter Left shoulder pain Qualifiers: Chronicity: acute Qualified Code(s): M25.512 - Pain in left shoulder - Discharge Information *PRESCRIPTION DRUG MONITORING PROGRAM REVIEWED*: No *COPY OF PRESCRIPTION DRUG MONITORING REPORT IN PATIENT PING: No Prescriptions: oxyCODONE HCl/Acetaminophen [Percocet 5-325 mg Tablet] 1 each PO Q6H PRN #24 tablet PRN Reason: Pain Instructions: Pain Medicine Instructions, [id number], Joint Pain, Easy-to- Read Referrals: Luly Oliver MD [Primary Care Provider] - Forms: ED Department Discharge Additional Instructions: You have been evaluated in the ED for your left hip/shoulder pain. Your x-ray demonstrated no acute fracture, but your left hip is bone on bone and will likely need a full replacement at some time to provide complete relief from pain. Please use ice/heat as tolerated to the affected area. You may take tylenol 500 mg or ibuprofen 600mg q6 hrs for pain relief. Please do so until you have a tolerable level of pain with activity. Do not exceed 4000mg tylenol in one day. Do not exceed 3200mg ibuprofen in one day. Please take the Percocet 5-325 tabs every 6 hours as needed for pain not relieved by ibuprofen/tylenol alone. Please return to ED if your symptoms should change or worsen.
--- NOTE | 2018-09-04 11:28 | CR ---
Left hip: AP and lateral views of the left hip were obtained. Comparison: Prior pelvis and left hip study of 12/28/17. Plate and screws are noted within the proximal left femur which appear intact. This affixes an old healed fracture. Severe joint space narrowing is noted within the left hip. Osteophytes are noted off the femoral head. Degenerative cystic change is noted within the femoral head and superior acetabulum. Osteopenia and vascular calcification is noted. Nothing acute is seen. Impression: 1. Severe degenerative change within the left hip. 2. Other incidental findings. Nothing acute is seen. Diagnostic code #3
== END 2018-09-04 11:36 | disposition home or self-care (01) ==
LOC: JD.ED 08:56
DX: S70.02XA Contusion of left hip, initial encounter (principal); M25.512 Pain in left shoulder; F17.210 Nicotine dependence, cigarettes, uncomplicated; I10 Essential (primary) hypertension; E11.9 Type 2 diabetes mellitus without complications; E78.00 Pure hypercholesterolemia, unspecified; F32.9 Major depressive disorder, single episode, unspecified; Z79.84 Long term (current) use of oral hypoglycemic drugs; Z79.01 Long term (current) use of anticoagulants; Z79.899 Other long term (current) drug therapy; Z88.6 Allergy status to analgesic agent; Z88.8 Allergy status to other drugs, medicaments and biological substances; W19.XXXA Unspecified fall, initial encounter; Y92.512 Supermarket, store or market as the place of occurrence of the external cause
CPT/HCPCS: 73502; 96372; 99283; J1885

== ENCOUNTER 2018-09-06 12:08 | Emergency (ER) | payer MEDICAID ==
[2018-09-06 12:24] VITALS: BP 114/59
--- NOTE | 2018-09-06 13:28 | EDM.PDOCBH ---
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 Since then, the patient has had chronic pain. He is prescribed oxycodone under pain contract with Dr. Burkett - 25 mg QID. He is also prescribed diazepam 2 mg, that he takes TID. The patient states that received his settlement paycheck just 4 days ago, 2018, and that ever since then, he feels useless, and no longer sees the point in continuing to take his pain medications. He states "it's over". He states that he last took oxycodone on 09/02/2018, and last took diazepam either yesterday or the day before. The patient denies that he took his oxycodone in excess of his prescription, but states that he no longer has any pills, because he either lost them or threw them out - he is not sure. Medical records finds that the patient was seen in this ED just 2 days ago, 09/04, complaining of left hip pain after falling at a grocery store on 08/30/2018. X-rays of his left hip were negative for a fracture, showing only arthritis. The patient was given Toradol in the ED, then prescribed 24 tablets of Percocet, that the patient states he did not fill. The [place] PMPi supports this claim, although the provider from that ED visit tells me that the patient attempted to fill the prescription, but that the pharmacy called this ED notifying the provider that the patient is under a pain contract, therefore the prescription was canceled. The patient now presents, stating that he is feeling depressed, although not suicidal, and that he also feels that he is withdrawing from opioids. He states that he has nausea, vomiting, watery diarrhea, diaphoresis, arthralgias, and abdominal pain, since yesterday, 09/05/2018. It is noted that the patient yawns frequently. The patient states that while he has a history of depression, related to the loss of his leg, he has never been on an antidepressant. He states that he has never attempted to harm himself, and that he has never been psychiatrically hospitalized. The patient states that he has a history of diabetes, and that he checks his blood sugar once a day, with typical blood sugars being between 98 and 102. This has not changed recently. - Related Data Allergies Allergy/AdvReac Type Severity Reaction Status Date / Time tramadol Allergy Hives Verified 09/06/18 12:28 naproxen [From Naprosyn] AdvReac Nausea and Verified 09/06/18 12:28 Vomiting Home Meds: Home Meds Lisinopril 20 mg PO DAILY 11/23/14 [History] Gabapentin [Neurontin] 800 mg PO BID 07/23/15 [History] Warfarin [Coumadin] 10 mg PO DAILY 07/23/15 [History] metFORMIN [Glucophage] 1,500 mg PO DAILY 09/26/17 [History] Pravastatin [Pravachol] 20 mg PO DAILY 09/04/18 [History] hydroCHLOROthiazide [Hydrochlorothiazide] 12.5 mg PO DAILY 09/04/18 [History] oxyCODONE HCl/Acetaminophen [Percocet 5-325 mg Tablet] 1 each PO Q6H PRN #24 tablet 09/04/18 [Rx] Past Medical History HEENT History: Reports: Impaired Vision Cardiovascular History: Reports: High Cholesterol, Hypertension Musculoskeletal History: Reports: Osteoarthritis Psychiatric History: Reports: Depression (never treated) Endocrine/Metabolic History: Reports: Diabetes, Type II, Obesity/BMI 30+ - Past Surgical History HEENT Surgical History: Reports: Detached Retina (right) Musculoskeletal Surgical History: Reports: Amputation (left below knee 2015), Arthroscopic Knee (right), Hip Replacement (right, 1997), Shoulder Surgery (right, arthroscopic), Other (See Below) (Left femur rodding 1991. Left leg debridements x 3) Social & Family History - Family History Family Medical History: Noncontributory - Tobacco Use Smoking Status *Q: Former Smoker Years of Tobacco use: 28 Packs/Tins Daily: 0.5 Month/Year Tobacco Last Used: Quit 2014 - Caffeine Use Caffeine Use: Reports: None Other Caffeine Use: diet pop - Alcohol Use Alcohol Use History: No - Recreational Drug Use Recreational Drug Use: No - Living Situation & Occupation Living situation: Reports: , with Spouse Occupation: Unemployed ED ROS GENERAL - Review of Systems Review Of Systems: ROS reveals no pertinent complaints other than HPI. ED EXAM, BEHAVIORAL HEALTH - Physical Exam Exam: See Below Exam Limited By: No Limitations General Appearance: Alert, WD/WN, No Apparent Distress Eye Exam: Bilateral Eye: EOMI, Normal Inspection Ears: Normal External Exam, Hearing Grossly Normal Nose: Normal Inspection Throat/Mouth: Normal Inspection, Normal Lips, Normal Voice, No Airway Compromise Head: Atraumatic, Normocephalic Neck: Normal Inspection, Full Range of Motion Respiratory/Chest: No Respiratory Distress, Lungs Clear, Normal Breath Sounds, No Accessory Muscle Use Cardiovascular: Normal Peripheral Pulses, Regular Rate, Rhythm, No Gallop, No JVD, No Murmur, No Rub GI/Abdominal: Normal Bowel Sounds, Soft, Non-Tender, No Organomegaly, No Distention, No Abnormal Bruit, No Mass, Other (Obese) (Male) Exam: Deferred Rectal (Males) Exam: Deferred Back Exam: Normal Inspection, Full Range of Motion, NT Extremities: Normal Capillary Refill, Other (Left BKA, with prosthesis on) Neurological: Alert, Normal Cognition, No Motor/Sensory Deficits, Oriented x 3 Psychiatric: Normal Affect Skin Exam: Warm, Dry, Intact, Normal color, No rash COURSE, BEHAVIORAL HEALTH COMP - Course Vital Signs: Last Vital Signs Temp 36.9 C 09/06/18 12:23 Pulse 95 09/06/18 12:23 Resp 13 09/06/18 12:23 BP 114/59 L 09/06/18 12:23 Pulse Ox 100 09/06/18 12:23 Medical Clearance: 09/06/18 13:20 While the patient states that he has depression, he denies feeling suicidal, denies any prior suicide attempt, and he states that he has never been psychiatrically hospitalized. The patient would be interested in receiving medical treatment to get off oxycodone, but I explained to the patient that we do not prescribe Suboxone or methadone here. One option would be to try to arrange for admission to [place], alternatively, the patient can follow-up either at [facility] or [facility], as early as tomorrow. The patient would prefer the outpatient route. I will therefore discharge him home, with referrals to both. Departure - Departure Time of Disposition: 13:22 Disposition: Home, Self-Care 01 Condition: Good Clinical Impression: Depression, Opioid dependence, Opioid withdrawal - Discharge Information *PRESCRIPTION DRUG MONITORING PROGRAM REVIEWED*: Not Applicable *COPY OF PRESCRIPTION DRUG MONITORING REPORT IN PATIENT PING: Not Applicable Instructions: Living With Depression, Opioid Withdrawal, Opioid Use Disorder Referrals: Luly Oliver MD [Primary Care Provider] - Venkat Burkett MD [Physician] - Forms: ED Department Discharge Additional Instructions: You were seen in the emergency room for feeling depressed, but not suicidal, as well as for opioid withdrawal symptoms, including nausea, vomiting, watery diarrhea, sweatyness, abdominal pain, and joint pains. The option of trying to get you into the [facility] in [place], for professional evaluation for your opioid dependence was offered, but declined. You have opted instead to follow-up as an outpatient. Your choices are: [facility] [address] [facility] [phone] OR [facility] [id number] 9am - 5pm [phone] If your symptoms of depression worsen, or if you feel like harming yourself, or if you change your mind about going to [place], please do not hesitate to return to the ER.
== END 2018-09-06 13:33 | disposition home or self-care (01) ==
LOC: JD.ED 12:08
DX: F32.9 Major depressive disorder, single episode, unspecified (principal); F11.23 Opioid dependence with withdrawal; Z87.891 Personal history of nicotine dependence
CPT/HCPCS: 99282; 99283

== ENCOUNTER 2021-02-15 08:20 | Emergency (ER) | payer MEDICAID, OTHER ==
[2021-02-15] MEDS ORDERED: Acetaminophen/HYDROcodone 325-5 MG Tab PO ONE (08:48)
[2021-02-15 08:56] VITALS: PULSE 89
--- NOTE | 2021-02-15 08:58 | EDM.PDOC ---
ED HPI GENERAL MEDICAL PROBLEM - General Chief Complaint: Lower Extremity Injury/Pain Stated Complaint: LT KNEE AND HIP PAIN Time Seen by Provider: 02/15/21 08:27 Source of Information: Reports: Patient History Limitations: Reports: No Limitations - History of Present Illness INITIAL COMMENTS - FREE TEXT/NARRATIVE: The patient presents with left hip and left knee pain. He says he may have injured himself getting out of the tub. He also told the nurse his prosthetic has been irritating him and causing him some pain. He has a below the knee amputation of his left lower leg. He also had surgery to his left hip. He has no fever, chills, cough, chest pain, shortness of breath, abdominal pain, nausea or vomiting. Onset: Gradual Duration: Day(s): Location: Reports: Lower Extremity, Left (hip and leg) Quality: Reports: Sharp Severity: Moderate Improves with: Reports: Immobilization Worsens with: Reports: Movement Context: Reports: Trauma (May have hurt himself getting out of the tub) Associated Symptoms: Reports: No Other Symptoms Left Hip Pain Score (Numeric/FACES): 10 - Related Data Allergies Allergy/AdvReac Type Severity Reaction Status Date / Time tramadol Allergy Hives Verified 02/15/21 08:33 naproxen [From Naprosyn] AdvReac Nausea and Verified 02/15/21 08:33 Vomiting Home Meds: Home Meds Lisinopril 20 mg PO DAILY 11/23/14 [History] Gabapentin [Neurontin] 800 mg PO BID 07/23/15 [History] metFORMIN [Glucophage] 1,500 mg PO DAILY 09/26/17 [History] Pravastatin [Pravachol] 20 mg PO DAILY 09/04/18 [History] hydroCHLOROthiazide [Hydrochlorothiazide] 12.5 mg PO DAILY 09/04/18 [History] Rivaroxaban [Xarelto] 10 mg PO DAILY 02/15/21 [History] oxyCODONE HCl/Acetaminophen [Percocet 5-325 mg Tablet] 1 - 2 each PO Q6HR PRN #20 tablet 02/15/21 [Rx] Past Medical History HEENT History: Reports: Impaired Vision Cardiovascular History: Reports: High Cholesterol, Hypertension Respiratory History: Reports: None Gastrointestinal History: Reports: None Genitourinary History: Reports: UTI, Recurrent Musculoskeletal History: Reports: Osteoarthritis Other Musculoskeletal History: LUE suffered a fracture and had screws and plates placed 2004 Neurological History: Reports: None Psychiatric History: Reports: Depression Endocrine/Metabolic History: Reports: Diabetes, Type II, Obesity/BMI 30+ Other Endocrine/Metabolic History: Diabetes for the past year. Checks BS twice daily and takes a new med called Invokana Hematologic History: Reports: None Immunologic History: Reports: None Oncologic (Cancer) History: Reports: None Dermatologic History: Reports: Cellulitis Other Dermatologic History: Cellulitis to LLE - Infectious Disease History Infectious Disease History: Reports: None - Past Surgical History HEENT Surgical History: Reports: Detached Retina Other HEENT Surgeries/Procedures: detached retina 1978 Musculoskeletal Surgical History: Reports: Amputation, Arthroscopic Knee, Hip Replacement, Shoulder Surgery, Other (See Below) Other Musculoskeletal Surgeries/Procedures:: right arthroscoptic knee 1980; right hip replacement 2004 in [place]; left BKA Social & Family History - Family History Family Medical History: No Pertinent Family History - Tobacco Use Tobacco Use Status *Q: Never Tobacco User - Caffeine Use Caffeine Use: Reports: Soda Other Caffeine Use: diet pop - Recreational Drug Use Recreational Drug Use: No - Living Situation & Occupation Living situation: Reports: , with Spouse Occupation: Unemployed Review of Systems - Review of Systems Review Of Systems: See Below Constitutional: Reports: No Symptoms Eyes: Reports: No Symptoms Ears: Reports: No Symptoms Nose: Reports: No Symptoms Mouth/Throat: Reports: No Symptoms Respiratory: Reports: No Symptoms Cardiovascular: Reports: No Symptoms GI/Abdominal: Reports: No Symptoms Genitourinary: Reports: No Symptoms Musculoskeletal: Reports: Other (Left hip and leg pain) ED EXAM, GENERAL - Physical Exam Exam: See Below Exam Limited By: No Limitations General Appearance: Alert, No Apparent Distress Ears: Normal External Exam Nose: Normal Inspection Head: Atraumatic, Normocephalic Neck: Normal Inspection Respiratory/Chest: No Respiratory Distress, Lungs Clear, Normal Breath Sounds Cardiovascular: Regular Rate, Rhythm, No Edema, No Murmur GI/Abdominal: Soft, Non-Tender, No Organomegaly, No Mass Extremities: Other (Pain upon palpation to the left hip. Pain upon palpation to the left knee. Bellow the knee amputaion to the left leg.) Course - Vital Signs Last Recorded V/S: Last Vital Signs Temp 97 F 02/15/21 08:29 Pulse 89 02/15/21 08:55 Resp 16 02/15/21 08:29 BP 175/102 H 02/15/21 08:55 Pulse Ox 99 02/15/21 08:29 - Orders/Labs/Meds Meds: Medications Discontinued Medications Generic Name Dose Route Start Last Admin Trade Name Raquel PRN Reason Stop Dose Admin Hydrocodone Bitart/Acetaminophen 2 tab 02/15/21 08:48 02/15/21 08:53 Acetaminophen/Hydrocodone 325-5 Mg Tab PO 02/15/21 08:49 2 tab ONETIME ONE Administration - Re-Assessments/Exams Free Text/Narrative Re-Assessment/Exam: 02/15/21 08:57 I gave him hydrocodone 5mg/325mg X 2 PO and I ordered x-rays of his left hip and left knee. 02/15/21 09:44 The x-rays shows nothing acute. He has degenerative changes in his knee and left hip and back. I will give him something for pain and have him follow up with Dr Biggs. Departure - Departure Time of Disposition: 09:45 Disposition: Home, Self-Care 01 Condition: Good Clinical Impression: Osteoarthritis of left hip Qualifiers: Osteoarthritis type: primary Qualified Code(s): M16.12 - Unilateral primary osteoarthritis, left hip - Discharge Information *PRESCRIPTION DRUG MONITORING PROGRAM REVIEWED*: No *COPY OF PRESCRIPTION DRUG MONITORING REPORT IN PATIENT PING: No Prescriptions: oxyCODONE HCl/Acetaminophen [Percocet 5-325 mg Tablet] 1 - 2 each PO Q6HR PRN #20 tablet PRN Reason: Pain Referrals: PCP,None [Primary Care Provider] - Azam Biggs MD [Physician] - 1 Week Renae Hernandez NP [Ordering Only Provider] - 1 Week Forms: ED Department Discharge Additional Instructions: Take tylenol or motrin as needed for pain. If that does not help, try the percocet. Follow up with Dr Biggs and Amber Hernandez. Please return if you are worse. Sepsis Event Note (ED) - Evaluation Sepsis Screening Result: No Definite Risk - Focused Exam Vital Signs: Vital Signs Temp Pulse Resp BP Pulse Ox 02/15/21 08:55 89 175/102 H 02/15/21 08:30 97 183/101 H 02/15/21 08:29 97 F 83 16 99
--- NOTE | 2021-02-15 09:34 | CR ---
Pelvis and left hip: AP view of the pelvis was obtained as well as AP and frog-leg lateral views of the left hip. Comparison: Previous left hip exam of 09/04/18 and pelvis and left hip study of 12/28/17. Severe joint space narrowing is noted within the left hip. Osteophytes are seen. Subchondral degenerative cystic change is seen. Findings are fairly similar to prior exam. Plate and screws are seen within the left hip which are stable. Right hip prosthesis is noted. Heterotopic bone is noted off the lateral right hip. Mild degenerative change is seen within the sacroiliac joints. Disc space narrowing and endplate osteophytes are noted within the visualized lower lumbar spine. Vascular calcification is seen. No acute fracture or other abnormality is appreciated. Impression: 1. Degenerative change within the lumbar spine, both sacroiliac joints as well as severe degenerative change within the left hip. 2. Right hip prosthesis and vascular calcification. 3. Nothing acute is seen. Diagnostic code #3
--- NOTE | 2021-02-15 09:35 | CR ---
Left knee: 4 views of the left knee were obtained. Comparison: Previous femur study of 11/13/15, no prior knee exam is available. There is evidence of below the knee amputation. Medial joint space narrowing is seen which is mild. Lateral joint space is preserved. Bony structures are osteopenic. Mild vascular calcification is noted. Slight spurring off the patella at the insertion of the quadriceps tendon. No acute abnormality is appreciated. Impression: 1. Below the knee amputation. 2. Mild medial joint space narrowing and other findings believed to be incidental as noted above. 3. Nothing acute is seen. Diagnostic code #2
[2021-02-15 10:00] VITALS: BP 158/90
== END 2021-02-15 09:55 | disposition home or self-care (01) ==
LOC: JD.ED 08:20
DX: M16.12 Unilateral primary osteoarthritis, left hip (principal); I10 Essential (primary) hypertension; E11.8 Type 2 diabetes mellitus with unspecified complications; E66.9 Obesity, unspecified; Z68.31 Body mass index [BMI] 31.0-31.9, adult; Z79.84 Long term (current) use of oral hypoglycemic drugs; Z88.5 Allergy status to narcotic agent; Z88.6 Allergy status to analgesic agent; Z79.899 Other long term (current) drug therapy
CPT/HCPCS: 73502; 73564; 99283; A9270

== ENCOUNTER 2021-02-19 07:56 | Emergency (ER) | payer OTHER ==
[2021-02-19 08:26] VITALS: BP 171/142; PULSE 91
== END 2021-02-19 09:10 | disposition left against medical advice (07) ==
LOC: JD.ED 07:56
DX: Z53.21 Procedure and treatment not carried out due to patient leaving prior to being seen by health care provider (principal)

== ENCOUNTER 2021-02-19 10:23 | Emergency (ER) | payer MEDICAID, OTHER ==
[2021-02-19 11:13] VITALS: BP 178/92; PULSE 50
--- NOTE | 2021-02-19 11:17 | EDM.PDOC ---
ED HPI GENERAL MEDICAL PROBLEM - General Chief Complaint: Lower Extremity Injury/Pain Stated Complaint: HIP AND LEG PAIN Time Seen by Provider: 02/19/21 11:17 - History of Present Illness INITIAL COMMENTS - FREE TEXT/NARRATIVE: 60-year-old male presents the emergency room with left hip pain. Patient states this is a chronic pain issue and has been going on for a long time he has had the hip pinned and has multiple screws in place. He was just seen here on the fifth for a similar complaint and was given Percocet. Patient also states his back has been acting up. He has no loss of bowel or bladder control. He denies any recent injuries. Left Hip Pain Score (Numeric/FACES): 10 - Related Data Allergies Allergy/AdvReac Type Severity Reaction Status Date / Time tramadol Allergy Severe Hives Verified 02/19/21 11:17 naproxen [From Naprosyn] AdvReac Severe Nausea and Verified 02/19/21 11:17 Vomiting Home Meds: Home Meds Lisinopril 20 mg PO DAILY 11/23/14 [History] Gabapentin [Neurontin] 800 mg PO BID 07/23/15 [History] metFORMIN [Glucophage] 1,500 mg PO DAILY 09/26/17 [History] Pravastatin [Pravachol] 20 mg PO DAILY 09/04/18 [History] hydroCHLOROthiazide [Hydrochlorothiazide] 12.5 mg PO DAILY 09/04/18 [History] Rivaroxaban [Xarelto] 10 mg PO DAILY 02/15/21 [History] Orphenadrine [Norflex] 100 mg PO BID #12 tab 02/19/21 [Rx] Past Medical History HEENT History: Reports: Impaired Vision Cardiovascular History: Reports: High Cholesterol, Hypertension Respiratory History: Reports: None Gastrointestinal History: Reports: None Genitourinary History: Reports: UTI, Recurrent Musculoskeletal History: Reports: Osteoarthritis Other Musculoskeletal History: LUE suffered a fracture and had screws and plates placed 2004 Neurological History: Reports: None Psychiatric History: Reports: Depression Endocrine/Metabolic History: Reports: Diabetes, Type II, Obesity/BMI 30+ Other Endocrine/Metabolic History: Diabetes for the past year. Checks BS twice daily and takes a new med called Invokana Hematologic History: Reports: None Immunologic History: Reports: None Oncologic (Cancer) History: Reports: None Dermatologic History: Reports: Cellulitis Other Dermatologic History: Cellulitis to LLE - Infectious Disease History Infectious Disease History: Reports: None - Past Surgical History HEENT Surgical History: Reports: Detached Retina Other HEENT Surgeries/Procedures: detached retina 1978 Musculoskeletal Surgical History: Reports: Amputation, Arthroscopic Knee, Hip Replacement, Shoulder Surgery, Other (See Below) Other Musculoskeletal Surgeries/Procedures:: right arthroscoptic knee 1980; right hip replacement 2004 in [place]; left BKA Social & Family History - Family History Family Medical History: No Pertinent Family History - Tobacco Use Tobacco Use Status *Q: Never Tobacco User Second Hand Smoke Exposure: No - Caffeine Use Caffeine Use: Reports: Soda Other Caffeine Use: diet pop - Recreational Drug Use Recreational Drug Use: No - Living Situation & Occupation Living situation: Reports: , with Spouse Occupation: Unemployed Review of Systems - Review of Systems Review Of Systems: See Below Constitutional: Reports: No Symptoms Respiratory: Reports: No Symptoms Cardiovascular: Reports: No Symptoms GI/Abdominal: Reports: No Symptoms ED EXAM, GENERAL - Physical Exam Exam: See Below Exam Limited By: No Limitations General Appearance: Alert, No Apparent Distress Respiratory/Chest: No Respiratory Distress, Lungs Clear, Normal Breath Sounds Cardiovascular: Regular Rate, Rhythm, No Edema, No Murmur GI/Abdominal: Normal Bowel Sounds, Soft, Non-Tender Back Exam: Normal Inspection, Muscle Spasm (Significant spasm on the left side of his lower back lumbar and into the sacral region of the paraspinous muscles). No: Vertebral Tenderness Neurological: Alert, Oriented, Normal Cognition Psychiatric: Normal Affect, Normal Mood Course - Vital Signs Last Recorded V/S: Last Vital Signs Temp 36.1 C 02/19/21 11:10 Pulse 50 L 02/19/21 11:10 Resp 14 02/19/21 11:10 BP 178/92 H 02/19/21 11:10 Pulse Ox 99 02/19/21 11:10 - Re-Assessments/Exams Free Text/Narrative Re-Assessment/Exam: 02/19/21 11:59 Patient is on gabapentin I do not want to start him on opioids. However, this is a chronic pain problem. He seems to have some back spasm which could very w ell be contributing to this we will give him a short trial of Norflex he must establish with a new regular physician I will provide him with the hospital clinic phone number. Departure - Departure Time of Disposition: 11:46 Disposition: Home, Self-Care 01 Clinical Impression: Low back strain - Discharge Information Prescriptions: Orphenadrine [Norflex] 100 mg PO BID #12 tab Referrals: PCP,None [Primary Care Provider] - Forms: ED Department Discharge Additional Instructions: Return to the emergency room with any questions problems or worsening symptoms. However, keep in mind that we generally will not do chronic pain management and it is essential for you to establish with a new healthcare provider and have them possibly refer you to a pain specialist. You have been started on Norflex take 1 twice daily and see if this helps. This was sent electronically to [facility] Follow-up in the hospital clinic. Their phone number is [phone]. Sepsis Event Note (ED) - Evaluation Sepsis Screening Result: No Definite Risk - Focused Exam Vital Signs: Vital Signs Temp Pulse Resp BP Pulse Ox 02/19/21 11:10 36.1 C 50 L 14 178/92 H 99
== END 2021-02-19 12:05 | disposition home or self-care (01) ==
LOC: JD.ED 10:23
DX: S39.012A Strain of muscle, fascia and tendon of lower back, initial encounter (principal); E78.00 Pure hypercholesterolemia, unspecified; I10 Essential (primary) hypertension; M19.90 Unspecified osteoarthritis, unspecified site; E11.9 Type 2 diabetes mellitus without complications; E66.9 Obesity, unspecified; Z68.32 Body mass index [BMI] 32.0-32.9, adult; Z88.5 Allergy status to narcotic agent; Z88.6 Allergy status to analgesic agent; Z79.84 Long term (current) use of oral hypoglycemic drugs; Z79.01 Long term (current) use of anticoagulants; Z79.899 Other long term (current) drug therapy; W19.XXXA Unspecified fall, initial encounter; Y92.002 Bathroom of unspecified non-institutional (private) residence as the place of occurrence of the external cause
CPT/HCPCS: 99283

== ENCOUNTER 2021-02-25 18:26 | Emergency (ER) | payer MEDICAID ==
[2021-02-25 18:55] VITALS: BP 191/95; PULSE 98
[2021-02-25] MEDS ORDERED: Ondansetron 4 MG/2 ML SDV IVPUSH ONE (19:24)
[2021-02-25] MEDS ORDERED: Sodium Chloride 0.9% 1,000 ML IV STA (19:24)
[2021-02-25] MEDS ORDERED: HYDROmorphone 0.5 MG/0.5 ML Syringe IVPUSH ONE ×2 (19:24→20:52)
[2021-02-25] MEDS ORDERED: diphenhydrAMINE 50 MG/ML SDV IVPUSH ONE (19:24)
--- NOTE | 2021-02-25 19:42 | EDM.PDOC ---
ED HPI GENERAL MEDICAL PROBLEM - General Chief Complaint: Headache Stated Complaint: HEADACHE Time Seen by Provider: 02/25/21 18:55 Source of Information: Reports: Patient, RN Notes Reviewed History Limitations: Reports: No Limitations - History of Present Illness INITIAL COMMENTS - FREE TEXT/NARRATIVE: Patient is a 60-year-old male presenting to the emergency part with complaints of migraine headache. He reports symptoms began this morning. He has a history of migraines and states that this feels like a typical migraine for him. He has had no recent head injuries. Complains of light and smell sensitivity. He has been nauseous but has had no vomiting. Took Tylenol around 10 AM this morning with little relief. He has had no fever or chills. Headache Pain Score (Numeric/FACES): 7 - Related Data Allergies Allergy/AdvReac Type Severity Reaction Status Date / Time tramadol Allergy Intermediate Hives Verified 02/25/21 18:53 naproxen [From Naprosyn] AdvReac Mild Nausea and Verified 02/25/21 18:53 Vomiting Home Meds: Home Meds Lisinopril 20 mg PO DAILY 11/23/14 [History] Gabapentin [Neurontin] 800 mg PO BID 07/23/15 [History] metFORMIN [Glucophage] 1,500 mg PO DAILY 09/26/17 [History] Pravastatin [Pravachol] 20 mg PO DAILY 09/04/18 [History] hydroCHLOROthiazide [Hydrochlorothiazide] 12.5 mg PO DAILY 09/04/18 [History] Rivaroxaban [Xarelto] 10 mg PO DAILY 02/15/21 [History] Orphenadrine [Norflex] 100 mg PO BID #12 tab 02/19/21 [Rx] Past Medical History HEENT History: Reports: Impaired Vision Cardiovascular History: Reports: High Cholesterol, Hypertension Respiratory History: Reports: None Gastrointestinal History: Reports: None Genitourinary History: Reports: UTI, Recurrent Musculoskeletal History: Reports: Osteoarthritis Other Musculoskeletal History: RITA suffered a fracture and had screws and plates placed 2004 Neurological History: Reports: None Psychiatric History: Reports: Depression Endocrine/Metabolic History: Reports: Diabetes, Type II, Obesity/BMI 30+ Other Endocrine/Metabolic History: Diabetes for the past year. Checks BS twice daily and takes a new med called Invokana Hematologic History: Reports: None Immunologic History: Reports: None Oncologic (Cancer) History: Reports: None Dermatologic History: Reports: Cellulitis Other Dermatologic History: Cellulitis to LLE - Infectious Disease History Infectious Disease History: Reports: None - Past Surgical History HEENT Surgical History: Reports: Detached Retina Other HEENT Surgeries/Procedures: detached retina 1978 Musculoskeletal Surgical History: Reports: Amputation, Arthroscopic Knee, Hip Replacement, Shoulder Surgery, Other (See Below) Other Musculoskeletal Surgeries/Procedures:: right arthroscoptic knee 1980; right hip replacement 2004 in [place]; left BKA Social & Family History - Family History Family Medical History: No Pertinent Family History - Tobacco Use Tobacco Use Status *Q: Never Tobacco User Second Hand Smoke Exposure: No - Caffeine Use Caffeine Use: Reports: Soda Other Caffeine Use: diet pop - Recreational Drug Use Recreational Drug Use: No - Living Situation & Occupation Living situation: Reports: , with Spouse Occupation: Unemployed ED ROS GENERAL - Review of Systems Review Of Systems: Comprehensive ROS is negative, except as noted in HPI. - Physical Exam Exam: See Below Exam Limited By: No Limitations General Appearance: Alert, WD/WN, No Apparent Distress Eye Exam: Bilateral Eye: PERRL Head Exam: Atraumatic, Normocephalic Respiratory/Chest: No Respiratory Distress, Lungs Clear, Normal Breath Sounds, No Accessory Muscle Use, Chest Non-Tender Cardiovascular: Normal Peripheral Pulses, Regular Rate, Rhythm, No Edema, No Gallop, No JVD, No Murmur, No Rub Neuro Exam (Abbreviated): Alert, Oriented, CN II-XII Intact, Normal Cognition, Normal Reflexes, No Motor/Sensory Deficits Extremities: Other (Left below the knee amputation) Psychiatric: Normal Affect, Normal Mood Skin Exam: Warm, Dry, Intact, Normal Color, No Rash Course - Vital Signs Last Recorded V/S: Last Vital Signs Temp 97.6 F 02/25/21 18:53 Pulse 98 02/25/21 18:53 Resp 16 02/25/21 18:53 BP 191/95 H 02/25/21 18:53 Pulse Ox 99 02/25/21 18:53 - Orders/Labs/Meds Meds: Medications Discontinued Medications Generic Name Dose Route Start Last Admin Trade Name Freq PRN Reason Stop Dose Admin Diphenhydramine HCl 50 mg 02/25/21 19:24 02/25/21 19:33 Diphenhydramine 50 Mg/Ml Sdv IVPUSH 02/25/21 19:25 50 mg ONETIME ONE Administration Hydromorphone HCl 0.5 mg 02/25/21 19:24 02/25/21 19:33 Hydromorphone 0.5 Mg/0.5 Ml Syringe IVPUSH 02/25/21 19:25 0.5 mg ONETIME ONE Administration Hydromorphone HCl 0.5 mg 02/25/21 20:52 02/25/21 21:07 Hydromorphone 0.5 Mg/0.5 Ml Syringe IVPUSH 02/25/21 20:53 0.5 mg ONETIME ONE Administration Sodium Chloride 1,000 mls @ 999 mls/hr 02/25/21 19:24 02/25/21 19:33 Normal Saline IV 02/25/21 20:24 999 mls/hr NOW STA Administration Labetalol HCl 20 mg 02/25/21 20:22 02/25/21 20:38 Labetalol 100 Mg/20 Ml Mdv IVPUSH 02/25/21 20:23 20 mg ONETIME ONE Administration Protocol Ondansetron HCl 4 mg 02/25/21 19:24 02/25/21 19:33 Ondansetron 4 Mg/2 Ml Sdv IVPUSH 02/25/21 19:25 4 mg ONETIME ONE Administration - Re-Assessments/Exams Free Text/Narrative Re-Assessment/Exam: Patient is a 60-year-old male presenting to the emergency department with complaints of migraine headache. He does have a history of migraines and states that this feels like a typical headache for him. Symptoms began this morning. He has had no head injuries. Exam is grossly unremarkable. He is on Xarelto, therefore I will not give him Toradol. I have ordered IV fluids, Benadryl, Zofran, and Dilaudid to be given. 02/25/212024 Patient's initial blood pressure was elevated at 191/95. After relaxing, the blood pressure did not come down. He is maintaining diastolic pressures of 190 as high as 230 with diastolic pressures of 110-120. This is likely contributing to his headache. Question if the patient has been taking his blood pressure medications. He reports that he is prescribed 3 medications, however he lost the bottle of one of them. He is currently only taking lisinopril and hydrochlorothiazide. He cannot remember what the third medication he is supposed to be taking is. I have ordered labetalol 20 mg IV to be given now. 02/25/21 21:11 Blood pressure after 20 mg of IV labetalol came down to 166/83. Patient did have's some further improvement of his headache. I have ordered additional dose of Dilaudid 0.5 mg IV. We will then allow him to be discharged home. Discussed that he should contact his primary care provider tomorrow to get a refill of his blood pressure medications and continue taking these as prescribed. He verbalized understanding. Discharge instructions as documented. Departure - Departure Time of Disposition: 21:20 Disposition: Home, Self-Care 01 Clinical Impression: Headache Qualifiers: Headache type: unspecified Headache chronicity pattern: acute headache Intractability: not intractable Qualified Code(s): R51.9 - Headache, unspecified Hypertension Qualifiers: Hypertension type: unspecified Qualified Code(s): I10 - Essential (primary) hypertension - Discharge Information *PRESCRIPTION DRUG MONITORING PROGRAM REVIEWED*: No *COPY OF PRESCRIPTION DRUG MONITORING REPORT IN PATIENT PING: No Instructions: Recurrent Migraine Headache, [id number] Referrals: PCP,None [Primary Care Provider] - Forms: ED Department Discharge Additional Instructions: You were seen in the emergency department today for migraine headache. Your blood pressure was found to be elevated in the ER. While in the ER, you received IV fluids, pain medications, and a blood pressure medication. This did bring your blood pressure down and your headache had improved. Recommend that you go home and rest. Continue use Tylenol and ibuprofen as needed for discomfort. Contact your primary care provider tomorrow to get a refill on your blood pressure medications and take these as prescribed. Return to ER for any new or worsening symptoms of concern. Sepsis Event Note (ED) - Evaluation Sepsis Screening Result: No Definite Risk - Focused Exam Vital Signs: Vital Signs Temp Pulse Resp BP Pulse Ox 02/25/21 18:53 97.6 F 98 16 191/95 H 99
[2021-02-25] MEDS ORDERED: Labetalol 100 MG/20 ML MDV IVPUSH ONE (20:22)
== END 2021-02-25 21:44 | disposition home or self-care (01) ==
LOC: JD.ED 18:26
DX: I10 Essential (primary) hypertension (principal); E78.00 Pure hypercholesterolemia, unspecified; M19.90 Unspecified osteoarthritis, unspecified site; E11.9 Type 2 diabetes mellitus without complications; E66.9 Obesity, unspecified; Z89.512 Acquired absence of left leg below knee; Z88.5 Allergy status to narcotic agent; Z79.899 Other long term (current) drug therapy; Z79.01 Long term (current) use of anticoagulants; Z79.84 Long term (current) use of oral hypoglycemic drugs
CPT/HCPCS: 96374; 96375; 96376; 99283; J1170; J1200; J2405; J3490; J7030; 99284

== ENCOUNTER 2021-03-19 12:11 | Emergency (ER) | payer MEDICAID, OTHER ==
[2021-03-19 12:52] VITALS: BP 145/79; PULSE 62
[2021-03-19] MEDS ORDERED: Acetaminophen/HYDROcodone 325-5 MG Tab PO ONE ×2 (13:07→14:08)
--- NOTE | 2021-03-19 13:18 | EDM.PDOC ---
ED HPI GENERAL MEDICAL PROBLEM - General Chief Complaint: Upper Extremity Injury/Pain Stated Complaint: ARM PAIN Time Seen by Provider: 03/19/21 12:49 Source of Information: Reports: Patient, Family History Limitations: Reports: No Limitations - History of Present Illness INITIAL COMMENTS - FREE TEXT/NARRATIVE: The patient presents with right arm pain. He denies any injury. The pain is in the shoulder and upper arm. He has limited rang of motion due to the pain. He has no headache or neck pain. He has been using ice and heat. He has some numbness at times. He has no weakness in his hand. He has no other symptoms such as fever, chills, cough, chest pain, shortness of breath, abdominal pain, nausea or vomiting. Onset: Gradual Duration: Day(s): Location: Reports: Upper Extremity, Right (shoulder and arm) Quality: Reports: Sharp Severity: Severe Improves with: Reports: Immobilization Worsens with: Reports: Movement Context: Denies: Trauma Associated Symptoms: Reports: No Other Symptoms Right Ankle Pain Score (Numeric/FACES): 9 - Related Data Allergies Allergy/AdvReac Type Severity Reaction Status Date / Time tramadol Allergy Intermediate Hives Verified 02/25/21 18:53 naproxen [From Naprosyn] AdvReac Mild Nausea and Verified 02/25/21 18:53 Vomiting Home Meds: Home Meds Lisinopril 20 mg PO DAILY 11/23/14 [History] Gabapentin [Neurontin] 800 mg PO BID 07/23/15 [History] metFORMIN [Glucophage] 1,500 mg PO DAILY 09/26/17 [History] Pravastatin [Pravachol] 20 mg PO DAILY 09/04/18 [History] hydroCHLOROthiazide [Hydrochlorothiazide] 12.5 mg PO DAILY 09/04/18 [History] Rivaroxaban [Xarelto] 10 mg PO DAILY 02/15/21 [History] Orphenadrine [Norflex] 100 mg PO BID #12 tab 02/19/21 [Rx] Past Medical History HEENT History: Reports: Impaired Vision Cardiovascular History: Reports: High Cholesterol, Hypertension Respiratory History: Reports: None Gastrointestinal History: Reports: None Genitourinary History: Reports: UTI, Recurrent Musculoskeletal History: Reports: Osteoarthritis Other Musculoskeletal History: RITA suffered a fracture and had screws and plates placed 2004 Neurological History: Reports: None Psychiatric History: Reports: Depression Endocrine/Metabolic History: Reports: Diabetes, Type II, Obesity/BMI 30+ Other Endocrine/Metabolic History: Diabetes for the past year. Checks BS twice daily and takes a new med called Invokana Hematologic History: Reports: None Immunologic History: Reports: None Oncologic (Cancer) History: Reports: None Dermatologic History: Reports: Cellulitis Other Dermatologic History: Cellulitis to LLE - Infectious Disease History Infectious Disease History: Reports: None - Past Surgical History HEENT Surgical History: Reports: Detached Retina Other HEENT Surgeries/Procedures: detached retina 1978 Musculoskeletal Surgical History: Reports: Amputation, Arthroscopic Knee, Hip Replacement, Shoulder Surgery, Other (See Below) Other Musculoskeletal Surgeries/Procedures:: right arthroscoptic knee 1980; right hip replacement 2004 in [place]; left BKA Social & Family History - Family History Family Medical History: No Pertinent Family History - Tobacco Use Tobacco Use Status *Q: Never Tobacco User - Caffeine Use Caffeine Use: Reports: None Other Caffeine Use: diet pop - Recreational Drug Use Recreational Drug Use: No - Living Situation & Occupation Living situation: Reports: , with Spouse Occupation: Unemployed Review of Systems - Review of Systems Review Of Systems: See Below Constitutional: Reports: No Symptoms Eyes: Reports: No Symptoms Ears: Reports: No Symptoms Nose: Reports: No Symptoms Mouth/Throat: Reports: No Symptoms Respiratory: Reports: No Symptoms Cardiovascular: Reports: No Symptoms GI/Abdominal: Reports: No Symptoms Genitourinary: Reports: No Symptoms Musculoskeletal: Reports: Shoulder Pain ED EXAM, GENERAL - Physical Exam Exam: See Below Exam Limited By: No Limitations General Appearance: Alert, No Apparent Distress Ears: Normal External Exam Nose: Normal Inspection Head: Atraumatic, Normocephalic Neck: Normal Inspection Respiratory/Chest: No Respiratory Distress, Lungs Clear, Normal Breath Sounds Cardiovascular: Regular Rate, Rhythm, No Edema, No Murmur GI/Abdominal: Soft, Non-Tender, No Organomegaly, No Mass Extremities: Other (Pain upon palpation to the right shoulder with a small lump to the anterior deltoid. Good sensation and pulses distally.) Course - Vital Signs Last Recorded V/S: Last Vital Signs Temp 96.5 F L 03/19/21 12:52 Pulse 62 03/19/21 12:52 Resp 20 03/19/21 12:52 BP 145/79 H 03/19/21 12:52 Pulse Ox 100 03/19/21 12:52 - Orders/Labs/Meds Orders: Active Orders 24 hr Category Date Time Status Shoulder Comp Rt [CR] Stat Exams 03/19/21 13:07 Taken Acetaminophen/HYDROcodone [Jackson 325-5 MG] Med 03/19/21 14:08 Once 1 tab PO ONETIME ONE Medication Orders Hydrocodone Bitart/Acetaminophen (Acetaminophen/Hydrocodone 325-5 Mg Tab) 1 tab PO ONETIME ONE Stop: 03/19/21 14:09 Meds: Medications Generic Name Dose Route Start Last Admin Trade Name Freq PRN Reason Stop Dose Admin Hydrocodone Bitart/Acetaminophen 1 tab 03/19/21 14:08 Acetaminophen/Hydrocodone 325-5 Mg Tab PO 03/19/21 14:09 ONETIME ONE Discontinued Medications Generic Name Dose Route Start Last Admin Trade Name Freq PRN Reason Stop Dose Admin Hydrocodone Bitart/Acetaminophen 2 tab 03/19/21 13:07 03/19/21 13:43 Acetaminophen/Hydrocodone 325-5 Mg Tab PO 03/19/21 13:08 2 tab ONETIME ONE Administration - Re-Assessments/Exams Free Text/Narrative Re-Assessment/Exam: 03/19/21 14:13 The x-ray of his shoulder shows some mild degenerative changes. I ordered him some hydrocodone. I will discharge him home to follow up with his doctor and PT. Departure - Departure Time of Disposition: 14:15 Disposition: Home, Self-Care 01 Condition: Good Clinical Impression: Right shoulder pain Qualifiers: Chronicity: acute Qualified Code(s): M25.511 - Pain in right shoulder Rotator cuff (capsule) sprain Qualifiers: Encounter type: initial encounter Laterality: right Qualified Code(s): S43.421A - Sprain of right rotator cuff capsule, initial encounter - Discharge Information *PRESCRIPTION DRUG MONITORING PROGRAM REVIEWED*: Not Applicable *COPY OF PRESCRIPTION DRUG MONITORING REPORT IN PATIENT PING: Not Applicable Referrals: Ginger Del [facility] [Primary Care Provider] - 1 Week Forms: ED Department Discharge Additional Instructions: Take motrin or tylenol as needed for pain. If that does not help, try the hydrocodone. Follow up with Ginger and physical therapy. Please return if you are worse. Sepsis Event Note (ED) - Focused Exam Vital Signs: Vital Signs Temp Pulse Resp BP Pulse Ox 03/19/21 12:52 96.5 F L 62 20 145/79 H 100 - My Orders Last 24 Hours: My Active Orders 03/19/21 13:07 Shoulder Comp Rt [CR] Stat 03/19/21 14:08 Acetaminophen/HYDROcodone [Jackson 325-5 MG] 1 tab PO ONETIME ONE - Assessment/Plan Last 24 Hours: My Active Orders 03/19/21 13:07 Shoulder Comp Rt [CR] Stat 03/19/21 14:08 Acetaminophen/HYDROcodone [Jackson 325-5 MG] 1 tab PO ONETIME ONE
--- NOTE | 2021-03-19 15:33 | CR ---
Right shoulder: 3 views of the right shoulder were obtained. Comparison: No prior right shoulder study is available. Inferior spurring is noted within the acromioclavicular joint with joint space narrowing. Glenohumeral joint appears within normal limits. No acute fracture, dislocation or other bony abnormality is seen. Impression: 1. Degenerative change within the acromioclavicular joint. 2. Right shoulder study is otherwise unremarkable. Diagnostic code #2
== END 2021-03-19 14:47 | disposition home or self-care (01) ==
LOC: JD.ED 12:11
DX: M75.101 Unspecified rotator cuff tear or rupture of right shoulder, not specified as traumatic (principal); E78.00 Pure hypercholesterolemia, unspecified; I10 Essential (primary) hypertension; E11.9 Type 2 diabetes mellitus without complications; E66.9 Obesity, unspecified; Z68.32 Body mass index [BMI] 32.0-32.9, adult; Z88.6 Allergy status to analgesic agent; Z79.01 Long term (current) use of anticoagulants; Z79.84 Long term (current) use of oral hypoglycemic drugs; Z79.899 Other long term (current) drug therapy
CPT/HCPCS: 73030; 99284; A9270

== ENCOUNTER 2021-04-14 15:51 | Emergency (ER) | payer MEDICAID ==
[2021-04-14] MEDS ORDERED: Metoclopramide 10 MG/2 ML SDV IM ONE (17:17)
[2021-04-14] MEDS ORDERED: HYDROmorphone 1 MG/ML Syringe IM ONE (17:17)
[2021-04-14] MEDS ORDERED: diphenhydrAMINE 50 MG/ML SDV IM ONE (17:17)
--- NOTE | 2021-04-14 17:46 | EDM.PDOC ---
ED HPI GENERAL MEDICAL PROBLEM - General Chief Complaint: Headache Stated Complaint: HEADACHE Time Seen by Provider: 04/14/21 17:14 Source of Information: Reports: Patient, RN Notes Reviewed History Limitations: Reports: No Limitations - History of Present Illness INITIAL COMMENTS - FREE TEXT/NARRATIVE: Patient is a 60-year-old male who presents to the ER for his migraine headache. Patient states he has a history of migraine headaches, this is not anything different than his normal migraine headache. He has had some nausea with one episode of vomiting, he is having some light sensitivity and smell sensitivity. Patient takes no migraine prophylaxis medications at home. States he was seen by neurologist at some point in time but this has been a long time ago. Denying any fevers or chills, cough or shortness of breath. Patient has a history of high blood pressure, but his blood pressure at today's visit is within normal limits at this time. Left Face/Facial Pain Score (Numeric/FACES): 8 - Related Data Allergies Allergy/AdvReac Type Severity Reaction Status Date / Time tramadol Allergy Intermediate Hives Verified 04/14/21 17:02 naproxen [From Naprosyn] AdvReac Mild Nausea and Verified 04/14/21 17:02 Vomiting Home Meds: Home Meds Lisinopril 20 mg PO DAILY 11/23/14 [History] Gabapentin [Neurontin] 800 mg PO BID 07/23/15 [History] metFORMIN [Glucophage] 1,500 mg PO BID 09/26/17 [History] Pravastatin [Pravachol] 20 mg PO DAILY 09/04/18 [History] hydroCHLOROthiazide [Hydrochlorothiazide] 12.5 mg PO DAILY 09/04/18 [History] Rivaroxaban [Xarelto] 10 mg PO DAILY 02/15/21 [History] Orphenadrine [Norflex] 100 mg PO BID #12 tab 02/19/21 [Rx] Past Medical History HEENT History: Reports: Impaired Vision Cardiovascular History: Reports: High Cholesterol, Hypertension, Other (See Mary cheung) Other Cardiovascular History: blood clot to L leg Genitourinary History: Reports: UTI, Recurrent Musculoskeletal History: Reports: Osteoarthritis Other Musculoskeletal History: RITA suffered a fracture and had screws and plates placed 2004 Psychiatric History: Reports: Depression Endocrine/Metabolic History: Reports: Diabetes, Type II, Obesity/BMI 30+ Dermatologic History: Reports: Cellulitis - Past Surgical History HEENT Surgical History: Reports: Detached Retina Other HEENT Surgeries/Procedures: detached retina 1978 Musculoskeletal Surgical History: Reports: Amputation, Arthroscopic Knee, Hip Replacement, Shoulder Surgery, Other (See Below) Other Musculoskeletal Surgeries/Procedures:: right arthroscoptic knee 1980; right hip replacement 2004 in [place]; left BKA Social & Family History - Family History Family Medical History: No Pertinent Family History - Tobacco Use Tobacco Use Status *Q: Never Tobacco User - Caffeine Use Caffeine Use: Reports: Soda Other Caffeine Use: diet pop - Recreational Drug Use Recreational Drug Use: No - Living Situation & Occupation Living situation: Reports: , with Spouse Occupation: Unemployed ED ROS GENERAL - Review of Systems Review Of Systems: Comprehensive ROS is negative, except as noted in HPI. - Physical Exam Exam: See Below Exam Limited By: No Limitations General Appearance: Alert, WD/WN, No Apparent Distress Eye Exam: Bilateral Eye: EOMI, Normal Inspection, PERRL Throat/Mouth: Normal Inspection, Normal Lips, Normal Teeth, Normal Gums, Normal Oropharynx, Normal Voice, No Airway Compromise Head Exam: Atraumatic, Normocephalic Respiratory/Chest: No Respiratory Distress, Lungs Clear, Normal Breath Sounds, No Accessory Muscle Use, Chest Non-Tender Cardiovascular: Normal Peripheral Pulses, Regular Rate, Rhythm, No Edema Neuro Exam (Abbreviated): Alert, Oriented, Normal Cognition, No Motor/Sensory Deficits Extremities: Normal Inspection, Normal Capillary Refill Psychiatric: Normal Affect, Normal Mood Skin Exam: Warm, Dry, Intact, Normal Color, No Rash Course - Vital Signs Last Recorded V/S: Last Vital Signs Temp 97.0 F 04/14/21 16:59 Pulse 79 04/14/21 16:59 Resp 16 04/14/21 16:59 BP 108/94 H 04/14/21 16:59 Pulse Ox 99 04/14/21 16:59 - Orders/Labs/Meds Meds: Medications Discontinued Medications Generic Name Dose Route Start Last Admin Trade Name Freq PRN Reason Stop Dose Admin Diphenhydramine HCl 25 mg 04/14/21 17:17 04/14/21 17:53 Diphenhydramine 50 Mg/Ml Sdv IM 04/14/21 17:18 25 mg ONETIME ONE Administration Hydromorphone HCl 1 mg 04/14/21 17:17 04/14/21 17:53 Hydromorphone 1 Mg/Ml Syringe IM 04/14/21 17:18 1 mg ONETIME ONE Administration Metoclopramide HCl 10 mg 04/14/21 17:17 04/14/21 17:52 Metoclopramide 10 Mg/2 Ml Sdv IM 04/14/21 17:18 10 mg ONETIME ONE Administration - Re-Assessments/Exams Free Text/Narrative Re-Assessment/Exam: 04/14/21 17:45 Patient presents to the ER for his migraine headache. We will go ahead and give him some IM medications for this and reassess once meds have been given time to work. 04/14/21 18:29 Patient is feeling better and states his ride is here we will go ahead and discharge him home at this time. Departure - Departure Time of Disposition: 18:30 Disposition: Home, Self-Care 01 Condition: Good Clinical Impression: Migraine - Discharge Information *PRESCRIPTION DRUG MONITORING PROGRAM REVIEWED*: No *COPY OF PRESCRIPTION DRUG MONITORING REPORT IN PATIENT PING: No Instructions: Migraine Headache, [id number] Referrals: PCP,None [Primary Care Provider] - Forms: ED Department Discharge Additional Instructions: You were evaluated in the ED for your headache. You were given a combination of medications for management. This did seem to provide you pretty good relief of your symptoms. Recommend that you go home and rest in a quiet, darkened room. Try also to keep well hydrated. Please return to the ED if your symptoms should change or worsen. Sepsis Event Note (ED) - Evaluation Sepsis Screening Result: No Definite Risk - Focused Exam Vital Signs: Vital Signs Temp Pulse Resp BP Pulse Ox 04/14/21 16:59 97.0 F 79 16 108/94 H 99
[2021-04-14 18:45] VITALS: BP 123/70; PULSE 86
== END 2021-04-14 18:35 | disposition home or self-care (01) ==
LOC: JD.ED 15:51
DX: G43.909 Migraine, unspecified, not intractable, without status migrainosus (principal); I10 Essential (primary) hypertension; M19.90 Unspecified osteoarthritis, unspecified site; E11.9 Type 2 diabetes mellitus without complications; E66.9 Obesity, unspecified; Z68.33 Body mass index [BMI] 33.0-33.9, adult; Z79.84 Long term (current) use of oral hypoglycemic drugs; Z79.01 Long term (current) use of anticoagulants; Z79.899 Other long term (current) drug therapy; Z88.5 Allergy status to narcotic agent; Z88.6 Allergy status to analgesic agent
CPT/HCPCS: 96372; 99283; J1170; J1200; J2765

== ENCOUNTER 2021-05-05 13:35 | Emergency (ER) | payer MEDICAID ==
[2021-05-05 13:58] VITALS: BP 125/70; PULSE 84
[2021-05-05] MEDS ORDERED: diphenhydrAMINE 50 MG/ML SDV IM ONE (14:14)
[2021-05-05] MEDS ORDERED: Metoclopramide 10 MG/2 ML SDV IM ONE (14:14)
[2021-05-05] MEDS ORDERED: HYDROmorphone 1 MG/ML Syringe IM ONE (14:14)
--- NOTE | 2021-05-05 14:18 | EDM.PDOC ---
ED HPI GENERAL MEDICAL PROBLEM - General Chief Complaint: Headache Stated Complaint: HEADACHE Time Seen by Provider: 05/05/21 14:00 Source of Information: Reports: Patient, RN Notes Reviewed History Limitations: Reports: No Limitations - History of Present Illness INITIAL COMMENTS - FREE TEXT/NARRATIVE: Patient is a 60-year-old male who presents to the ER for evaluation of his migraine headache. Patient states that this developed this morning shortly after awakening, and has been present since. States is typical as for his normal migraine, he is light sensitive, sound sensitive, slightly nauseous but has not had any vomiting. Not having any other sick-like symptoms fevers or chills, cough or shortness of breath or any sort of vomiting or diarrhea. Patient did not take any sort of medications prior to coming to the ER. States he takes no medications at home for migraine prophylaxis. Primary care provider is Dr. Melly Carney. Headache Pain Score (Numeric/FACES): 9 - Related Data Allergies Allergy/AdvReac Type Severity Reaction Status Date / Time tramadol Allergy Intermediate Hives Verified 04/14/21 17:02 ketorolac [From Toradol] Allergy Itching Verified 05/05/21 13:59 naproxen [From Naprosyn] AdvReac Mild Nausea and Verified 04/14/21 17:02 Vomiting Home Meds: Home Meds Lisinopril 20 mg PO DAILY 11/23/14 [History] Gabapentin [Neurontin] 800 mg PO BID 07/23/15 [History] metFORMIN [Glucophage] 1,500 mg PO BID 09/26/17 [History] hydroCHLOROthiazide [Hydrochlorothiazide] 12.5 mg PO DAILY 09/04/18 [History] Rivaroxaban [Xarelto] 10 mg PO DAILY 02/15/21 [History] Pravastatin [Pravachol] 20 mg PO DAILY 05/05/21 [History] Past Medical History HEENT History: Reports: Impaired Vision Cardiovascular History: Reports: High Cholesterol, Hypertension, Other (See Below) Other Cardiovascular History: blood clot to L leg Gastrointestinal History: Reports: None Genitourinary History: Reports: UTI, Recurrent Musculoskeletal History: Reports: Osteoarthritis Other Musculoskeletal History: RITA suffered a fracture and had screws and plates placed 2004 Psychiatric History: Reports: Depression Endocrine/Metabolic History: Reports: Diabetes, Type II, Obesity/BMI 30+ Other Endocrine/Metabolic History: Diabetes for the past year. Checks BS twice daily and takes a new med called Invokana Dermatologic History: Reports: Cellulitis Other Dermatologic History: Cellulitis to LLE - Past Surgical History HEENT Surgical History: Reports: Detached Retina Other HEENT Surgeries/Procedures: detached retina 1978 Musculoskeletal Surgical History: Reports: Amputation, Arthroscopic Knee, Hip Replacement, Shoulder Surgery, Other (See Below) Other Musculoskeletal Surgeries/Procedures:: right arthroscoptic knee 1980; right hip replacement 2004 in [place]; left BKA Social & Family History - Family History Family Medical History: No Pertinent Family History - Tobacco Use Tobacco Use Status *Q: Never Tobacco User Second Hand Smoke Exposure: No - Caffeine Use Caffeine Use: Reports: None Other Caffeine Use: diet pop - Recreational Drug Use Recreational Drug Use: No - Living Situation & Occupation Living situation: Reports: , with Spouse Occupation: Unemployed ED ROS GENERAL - Review of Systems Review Of Systems: Comprehensive ROS is negative, except as noted in HPI. - Physical Exam Exam: See Below Exam Limited By: No Limitations General Appearance: Alert, WD/WN, No Apparent Distress Eye Exam: Bilateral Eye: EOMI, Normal Inspection, PERRL Respiratory/Chest: No Respiratory Distress, Lungs Clear, Normal Breath Sounds, No Accessory Muscle Use, Chest Non-Tender Cardiovascular: Normal Peripheral Pulses, Regular Rate, Rhythm, No Edema GI/Abdominal: Normal Bowel Sounds, Soft, Non-Tender, No Distention, No Mass Neuro Exam (Abbreviated): Alert, Oriented, Normal Cognition, No Motor/Sensory Deficits Extremities: Normal Inspection, Normal Capillary Refill Psychiatric: Normal Affect, Normal Mood Skin Exam: Warm, Dry, Intact, Normal Color, No Rash #1 Interpretation EKG Date: 05/05/21 Time: 14:21 Rhythm: NSR Rate (Beats/Min): 81 [place]: LAD-Left [place] Deviation (-6 ) P-Wave: Present QRS: LBBB ST-T: Normal QT: Prolonged (Mildly prolonged, QTC 466) Comparison: Change From Previous EKG EKG Interpretation Comments: No obvious ischemia or acute ST changes noted, reviewed by myself and Dr. Mcarthur. Left bundle branch block is new from EKG done in 2014. Course - Vital Signs Last Recorded V/S: Last Vital Signs Temp 96.9 F 05/05/21 13:57 Pulse 84 05/05/21 13:57 Resp 20 05/05/21 13:57 BP 125/70 05/05/21 13:57 Pulse Ox 99 05/05/21 13:57 - Orders/Labs/Meds Orders: Active Orders 24 hr Category Date Time Status EKG 12 Lead [EK] Stat Ther 05/05/21 14:04 Ordered Meds: Medications Discontinued Medications Generic Name Dose Route Start Last Admin Trade Name Raquel PRN Reason Stop Dose Admin Diphenhydramine HCl 25 mg 05/05/21 14:14 05/05/21 14:24 Diphenhydramine 50 Mg/Ml Sdv IM 05/05/21 14:15 25 mg ONETIME ONE Administration Hydromorphone HCl 1 mg 05/05/21 14:14 05/05/21 14:24 Hydromorphone 1 Mg/Ml Syringe IM 05/05/21 14:15 1 mg ONETIME ONE Administration Metoclopramide HCl 10 mg 05/05/21 14:14 05/05/21 14:24 Metoclopramide 10 Mg/2 Ml Sdv IM 05/05/21 14:15 10 mg ONETIME ONE Administration - Re-Assessments/Exams Free Text/Narrative Re-Assessment/Exam: 05/05/21 14:20 Patient presents to the ER for evaluation his migraine headache, we will give him IM Dilaudid, Reglan, Benadryl for initial management. Triage nurse was concerned about his heart rate jumping from 40 beats a minute to 80 beats a minute on pulse ox, so she did order EKG at the time of triage, and it does demonstrate sinus rhythm at about 81 bpm but multiple PVCs noted. Patient has a new left bundle branch block from last known EKG in 2014. Departure - Departure Time of Disposition: 14:36 Disposition: Home, Self-Care 01 Condition: Good Clinical Impression: Asymptomatic PVCs Migraine Qualifiers: Migraine type: other Status migrainosus presence: without status migrainosus Intractability: not intractable Qualified Code(s): G43.809 - Other migraine, not intractable, without status migrainosus - Discharge Information *PRESCRIPTION DRUG MONITORING PROGRAM REVIEWED*: No *COPY OF PRESCRIPTION DRUG MONITORING REPORT IN PATIENT PING: No Instructions: Migraine Headache, [id number] Referrals: Melly Carney MD [Physician] - Forms: ED Department Discharge Additional Instructions: You were evaluated in the ED for your headache. You were given a combination of medications for management. This did seem to provide you pretty good relief of your symptoms. EKG demonstrated unifocal PVCs, this is a normal abnormal finding. This is nothing that you need to worry yourself about regarding your EKG. Recommend that you go home and rest in a quiet, darkened room. Try also to keep well hydrated. We recommend that you talk to your primary care provider for ongoing management of your chronic migraine headaches, you should be placed on a prophylactic medication to help provide ongoing relief of your recurrent migraine headaches. Please return to the ED if your symptoms should change or worsen. Sepsis Event Note (ED) - Focused Exam Vital Signs: Vital Signs Temp Pulse Resp BP Pulse Ox 05/05/21 13:57 96.9 F 84 20 125/70 99 - My Orders Last 24 Hours: My Active Orders 05/05/21 14:04 EKG 12 Lead [EK] Stat - Assessment/Plan Last 24 Hours: My Active Orders 05/05/21 14:04 EKG 12 Lead [EK] Stat
[2021-05-05] MEDS ORDERED: HYDROmorphone 0.5 MG/0.5 ML Syringe IM ONE (15:08)
== END 2021-05-05 15:55 | disposition home or self-care (01) ==
LOC: JD.ED 13:35
DX: G43.809 Other migraine, not intractable, without status migrainosus (principal); I49.3 Ventricular premature depolarization; E78.00 Pure hypercholesterolemia, unspecified; I10 Essential (primary) hypertension; E11.9 Type 2 diabetes mellitus without complications; E66.9 Obesity, unspecified; Z68.30 Body mass index [BMI] 30.0-30.9, adult; Z88.5 Allergy status to narcotic agent; Z88.6 Allergy status to analgesic agent; Z88.8 Allergy status to other drugs, medicaments and biological substances; Z79.899 Other long term (current) drug therapy; Z79.84 Long term (current) use of oral hypoglycemic drugs
CPT/HCPCS: 93005; 96372; 99283; J1170; J1200; J2765

== ENCOUNTER 2021-05-27 06:37 | Emergency (ER) | payer MEDICAID ==
[2021-05-27 07:11] VITALS: BP 118/71; PULSE 60
--- NOTE | 2021-05-27 07:18 | EDM.PDOC ---
ED HPI GENERAL MEDICAL PROBLEM - General Chief Complaint: Lower Extremity Injury/Pain Stated Complaint: LEFT LEG PAIN Time Seen by Provider: 05/27/21 07:14 - History of Present Illness INITIAL COMMENTS - FREE TEXT/NARRATIVE: 61-year-old male presents the emergency room with left BKA site pain. Patient states 2 weeks ago he fell on this. Apparently his prosthesis twisted or gave out. Since this time he said some discomfort since that time he has developed a sore he noticed a sore about a week ago. His tried to fabricate a bandage to go over this area out of the surgical mask this is not really helped the change in this daily but not using any medication on it. The patient denies any fevers or chills. He is a poorly controlled diabetic. He thinks his sites been x-rayed within the last week or 2 but I have not been able to find it in reviewing our records. The patient has been seen since the time of the injury up in the clinic. Left Lower Leg Pain Score (Numeric/FACES): 9 - Related Data Allergies Allergy/AdvReac Type Severity Reaction Status Date / Time tramadol Allergy Intermediate Hives Verified 05/27/21 07:12 ketorolac [From Toradol] Allergy Itching Verified 05/27/21 07:12 naproxen [From Naprosyn] AdvReac Mild Nausea and Verified 05/27/21 07:12 Vomiting Home Meds: Home Meds Lisinopril 20 mg PO DAILY 11/23/14 [History] Gabapentin [Neurontin] 800 mg PO BID 07/23/15 [History] metFORMIN [Glucophage] 1,500 mg PO BID 09/26/17 [History] hydroCHLOROthiazide [Hydrochlorothiazide] 12.5 mg PO DAILY 09/04/18 [History] Rivaroxaban [Xarelto] 10 mg PO DAILY 02/15/21 [History] Pravastatin [Pravachol] 20 mg PO DAILY 05/05/21 [History] Clindamycin HCl 300 mg PO Q8H #30 capsule 05/27/21 [Rx] Past Medical History HEENT History: Reports: Impaired Vision Cardiovascular History: Reports: High Cholesterol, Hypertension, Other (See Below) Other Cardiovascular History: blood clot to L leg Respiratory History: Reports: None Gastrointestinal History: Reports: None Genitourinary History: Reports: UTI, Recurrent Musculoskeletal History: Reports: Osteoarthritis Other Musculoskeletal History: LUE suffered a fracture and had screws and plates placed 2004 Neurological History: Reports: None Psychiatric History: Reports: Depression Endocrine/Metabolic History: Reports: Diabetes, Type II, Obesity/BMI 30+ Other Endocrine/Metabolic History: Diabetes for the past year. Checks BS twice daily and takes a new med called Invokana Hematologic History: Reports: None Immunologic History: Reports: None Oncologic (Cancer) History: Reports: None Dermatologic History: Reports: Cellulitis Other Dermatologic History: Cellulitis to LLE - Infectious Disease History Infectious Disease History: Reports: None - Past Surgical History HEENT Surgical History: Reports: Detached Retina Other HEENT Surgeries/Procedures: detached retina 1978 Musculoskeletal Surgical History: Reports: Amputation, Arthroscopic Knee, Hip Replacement, Shoulder Surgery, Other (See Below) Other Musculoskeletal Surgeries/Procedures:: right arthroscoptic knee 1980; right hip replacement 2004 in [place]; left BKA Social & Family History - Family History Family Medical History: No Pertinent Family History - Caffeine Use Caffeine Use: Reports: None Other Caffeine Use: diet pop - Living Situation & Occupation Living situation: Reports: , with Spouse Occupation: Unemployed Review of Systems - Review of Systems Review Of Systems: See Below Constitutional: Reports: No Symptoms Respiratory: Reports: No Symptoms Cardiovascular: Reports: No Symptoms GI/Abdominal: Reports: No Symptoms Neurological: Reports: No Symptoms ED EXAM, GENERAL - Physical Exam Exam: See Below Exam Limited By: No Limitations General Appearance: Alert, No Apparent Distress Head: Atraumatic, Normocephalic Neck: Normal Inspection, Supple, Non-Tender, Full Range of Motion Respiratory/Chest: No Respiratory Distress, Lungs Clear, Normal Breath Sounds Cardiovascular: Regular Rate, Rhythm, No Edema, No Murmur GI/Abdominal: Normal Bowel Sounds, Soft, Non-Tender Back Exam: Normal Inspection. No: CVA Tenderness (L), CVA Tenderness (R) Extremities: Other (Examination of the left BKA stump shows mild redness and swelling he has an ulceration on the as anterior aspect no drainage at this time. ) Neurological: Alert, Oriented, Normal Cognition Course - Vital Signs Last Recorded V/S: Last Vital Signs Temp 35.5 C L 05/27/21 07:05 Pulse 60 05/27/21 07:05 Resp 16 05/27/21 07:05 BP 118/71 05/27/21 07:05 Pulse Ox 97 05/27/21 07:05 - Orders/Labs/Meds Labs: Laboratory Tests 05/27/21 05/27/21 Range/Units 07:40 07:40 WBC 5.39 (4.23-9.07) K/mm3 RBC 5.39 (4.63-6.08) M/mm3 Hgb 14.7 (13.7-17.5) gm/dl Hct 45.2 (40.1-51.0) % MCV 83.9 (79.0-92.2) fl MCH 27.3 (25.7-32.2) pg MCHC 32.5 (32.2-35.5) g/dl RDW Std Deviation 45.8 H (35.1-43.9) fL Plt Count 270 (163-337) K/mm3 MPV 9.9 (9.4-12.3) fl Neutrophils % (Manual) 46 (40-60) % Band Neutrophils % 0 (0-10) % Lymphocytes % (Manual) 53 H (20-40) % Atypical Lymphs % 0 % Monocytes % (Manual) 1 L (2-10) % Eosinophils % (Manual) 0 L (0.8-7.0) % Basophils % (Manual) 0 L (0.2-1.2) Platelet Estimate Adequate Plt Morphology Comment Normal RBC Morph Comment Normal Sodium 139 (136-145) mEq/L Potassium 4.1 (3.5-5.1) mEq/L Chloride 103 (98-107) mEq/L Carbon Dioxide 22 (21-32) mEq/L Anion Gap 18.1 H (5-15) BUN 30 H (7-18) mg/dL Creatinine 1.4 H (0.7-1.3) mg/dL Est Cr Clr Drug Dosing 76.19 mL/min Estimated GFR (MDRD) > 60 (>60) mL/min BUN/Creatinine Ratio 21.4 H (14-18) Glucose 274 H (70-99) mg/dL Calcium 9.1 (8.5-10.1) mg/dL Total Bilirubin 0.2 (0.2-1.0) mg/dL AST 36 (15-37) U/L ALT 77 H (16-63) U/L Alkaline Phosphatase 67 (46-116) U/L C-Reactive Protein 1.5 H* (<1.0) mg/dL Total Protein 7.6 (6.4-8.2) g/dl Albumin 3.7 (3.4-5.0) g/dl Globulin 3.9 gm/dL Albumin/Globulin Ratio 1.0 (1-2) Meds: Medications Discontinued Medications Generic Name Dose Route Start Last Admin Trade Name Raquel PRN Reason Stop Dose Admin Acetaminophen 650 mg 05/27/21 08:09 05/27/21 08:12 Acetaminophen 325 Mg Tab PO 05/27/21 08:10 650 mg NOW ONE Administration - Re-Assessments/Exams Free Text/Narrative Re-Assessment/Exam: 05/27/21 08:02 I did find some chemistries and the elevated hemoglobin A1c 11.2 with reviewing his most recent labs but did not find any x-ray results. 05/27/21 08:03 Today's. No fracture x-ray shows no acute changes no fracture is apparent. He has got osteopenia. Vascular calcifications noted. I did notice that he did have an x-ray done on May 07 of this year which is essentially the same as today's study. Waiting on labs CBC CMP and C-reactive protein. 05/27/21 08:10 Patient is requesting something for pain will give him 650 mg. Tylenol and see how this does. Oddly I did go into the room to explain the x-ray findings and they were still waiting for the labs. Explained the treatment plan with the Tylenol and they were waiting for labs the patient and nodded their head and did not say anything. 05/27/21 10:31 Labs show normal white count C-reactive protein is mildly elevated. At this point we will start him on clindamycin 300 mg 3 times a day and have him follow- up with his regular doctor on Friday or Friday. Departure - Departure Time of Disposition: 10:32 Disposition: Home, Self-Care 01 Clinical Impression: Diabetic skin ulcer - Discharge Information Referrals: Venkat Burkett MD [Primary Care Provider] - Forms: ED Department Discharge Additional Instructions: Return to the emergency room with any questions problems or worsening symptoms. Follow-up with your regular healthcare provider on Friday or Friday. This is essential. You have been started on an antibiotic, this is clindamycin take 1 every 8 hours. Your first dose was given here in the emergency room. The only pharmacy open today is [facility] up by [address] your prescription for the remaining antibiotics was sent there be sure and get that today. Use Tylenol as needed for pain. Sepsis Event Note (ED) - Evaluation Sepsis Screening Result: No Definite Risk - Focused Exam Vital Signs: Vital Signs Temp Pulse Resp BP Pulse Ox 05/27/21 07:05 35.5 C L 60 16 118/71 97
[2021-05-27] MEDS ORDERED: Acetaminophen 325 MG Tab PO ONE (08:09)
--- NOTE | 2021-05-27 08:24 | CR ---
Left knee: AP and lateral views left knee were obtained. Comparison: Prior study of 05/07/21. Below the knee amputation is seen. Medial joint space is narrowed which appears stable. Bony structures are osteopenic. Mild vascular calcification is noted. Slight spurring is noted off the patella at the insertion of the quadriceps tendon. No focal erosive change or acute fracture is seen. Impression: 1. Below the knee amputation as noted above. 2. Other stable findings. 3. No acute abnormality is appreciated. Diagnostic code #2
[2021-05-27] MEDS ORDERED: Clindamycin HCl 150 MG Cap PO ONE (10:32)
== END 2021-05-27 10:45 | disposition home or self-care (01) ==
LOC: JD.ED 06:37
DX: E11.622 Type 2 diabetes mellitus with other skin ulcer (principal); L98.499 Non-pressure chronic ulcer of skin of other sites with unspecified severity; I10 Essential (primary) hypertension; E11.9 Type 2 diabetes mellitus without complications; E66.9 Obesity, unspecified; Z68.34 Body mass index [BMI] 34.0-34.9, adult; Z89.512 Acquired absence of left leg below knee; Z88.5 Allergy status to narcotic agent; Z88.6 Allergy status to analgesic agent; Z79.84 Long term (current) use of oral hypoglycemic drugs; Z79.01 Long term (current) use of anticoagulants; Z79.899 Other long term (current) drug therapy
CPT/HCPCS: 36415; 73590; 80053; 85007; 85027; 86140; 99283; A9270

== ENCOUNTER 2021-09-17 10:00 | Emergency (ER) | payer MEDICAID ==
[2021-09-17] MEDS ORDERED: Metoclopramide 10 MG/2 ML SDV IVPUSH ONE (10:54)
[2021-09-17] MEDS ORDERED: Sodium Chloride 0.9% 10 ML Syringe FLUSH PRN (10:54)
[2021-09-17] MEDS ORDERED: diphenhydrAMINE 50 MG/ML SDV IVPUSH ONE (10:55)
[2021-09-17] MEDS ORDERED: HYDROmorphone 1 MG/ML Syringe IVPUSH ONE ×3 (10:57→14:57)
[2021-09-17] MEDS ORDERED: cefTRIAXone 1 GM in Sodium Chloride 0.9% 100 ML IV ONE (10:57)
[2021-09-17] MEDS ORDERED: Sodium Chloride 0.9% 1,000 ML IV ONE (13:40)
[2021-09-17 17:15] VITALS: BP 167/95; PULSE 93
== END 2021-09-17 17:14 | disposition home or self-care (01) ==
LOC: JD.ED 10:00
DX: G43.809 Other migraine, not intractable, without status migrainosus (principal); L03.116 Cellulitis of left lower limb; E78.00 Pure hypercholesterolemia, unspecified; I10 Essential (primary) hypertension; E11.9 Type 2 diabetes mellitus without complications; E66.9 Obesity, unspecified; Z68.31 Body mass index [BMI] 31.0-31.9, adult; Z88.5 Allergy status to narcotic agent; Z88.6 Allergy status to analgesic agent; Z79.01 Long term (current) use of anticoagulants; Z79.899 Other long term (current) drug therapy
CPT/HCPCS: 36415; 73564; 80053; 83605; 85025; 86140; 87040; 96365; 96375; 96376; 99283; J0696; J1170; J1200; J2765; J7030; 99285

== ENCOUNTER 2021-09-20 13:59 | Emergency (ER) | payer MEDICAID ==
[2021-09-20] MEDS ORDERED: Acetaminophen/HYDROcodone 325-5 MG Tab PO ONE (15:08)
[2021-09-20 16:19] VITALS: BP 146/86; PULSE 75
== END 2021-09-20 17:30 | disposition home or self-care (01) ==
LOC: JD.ED 13:59
DX: R00.8 Other abnormalities of heart beat (principal); E11.622 Type 2 diabetes mellitus with other skin ulcer; L97.529 Non-pressure chronic ulcer of other part of left foot with unspecified severity; E78.00 Pure hypercholesterolemia, unspecified; I10 Essential (primary) hypertension; E66.9 Obesity, unspecified; Z88.5 Allergy status to narcotic agent; Z88.6 Allergy status to analgesic agent; Z79.899 Other long term (current) drug therapy; Z79.01 Long term (current) use of anticoagulants; Z68.33 Body mass index [BMI] 33.0-33.9, adult
CPT/HCPCS: 36415; 80053; 83735; 84484; 85025; 93225; 93226; 99283; A9270; 93010; 99285

== ENCOUNTER 2021-11-10 19:20 | Emergency (ER) | payer MEDICAID ==
[2021-11-10 19:33] VITALS: BP 164/81; PULSE 95
[2021-11-10] MEDS ORDERED: Acetaminophen 325 MG Tab PO ONE (19:51)
[2021-11-10] MEDS ORDERED: Sodium Chloride 0.9% 1,000 ML IV ONE (20:38)
== END 2021-11-10 23:00 | disposition home or self-care (01) ==
LOC: JD.ED 19:20
DX: L97.929 Non-pressure chronic ulcer of unspecified part of left lower leg with unspecified severity (principal); E78.00 Pure hypercholesterolemia, unspecified; I10 Essential (primary) hypertension; E11.9 Type 2 diabetes mellitus without complications; E66.9 Obesity, unspecified; Z68.32 Body mass index [BMI] 32.0-32.9, adult; Z79.899 Other long term (current) drug therapy; Z79.84 Long term (current) use of oral hypoglycemic drugs; Z88.6 Allergy status to analgesic agent; Z88.5 Allergy status to narcotic agent
CPT/HCPCS: 36415; 73562; 80053; 82947; 83605; 85025; 85610; 86140; 99283; A9270; J7030

== ENCOUNTER 2021-12-06 04:03 | Emergency (ER) | payer MEDICAID ==
[2021-12-06 04:18] VITALS: BP 130/83; PULSE 74
[2021-12-06] MEDS ORDERED: Prochlorperazine 10 MG/2 ML SDV IM ONE (04:33)
[2021-12-06] MEDS ORDERED: diphenhydrAMINE 50 MG/ML SDV IM ONE (04:33)
[2021-12-06] MEDS ORDERED: Haloperidol Lactate 5 MG/ML SDV IM ONE (05:50)
== END 2021-12-06 06:49 | disposition home or self-care (01) ==
LOC: JD.ED 04:03
DX: R51.9 Headache, unspecified (principal); E78.00 Pure hypercholesterolemia, unspecified; I10 Essential (primary) hypertension; E11.9 Type 2 diabetes mellitus without complications; E66.9 Obesity, unspecified; Z68.32 Body mass index [BMI] 32.0-32.9, adult; Z79.899 Other long term (current) drug therapy; Z79.84 Long term (current) use of oral hypoglycemic drugs; Z88.1 Allergy status to other antibiotic agents; Z88.5 Allergy status to narcotic agent; Z88.6 Allergy status to analgesic agent
CPT/HCPCS: 96372; 99283; J0780; J1200; J1630

== ENCOUNTER 2021-12-30 12:03 | Emergency (ER) | payer MEDICAID ==
[2021-12-30] MEDS ORDERED: Prochlorperazine 10 MG/2 ML SDV IM ONE (12:27)
[2021-12-30] MEDS ORDERED: Haloperidol Lactate 5 MG/ML SDV IM ONE (12:27)
[2021-12-30] MEDS ORDERED: diphenhydrAMINE 50 MG/ML SDV IM ONE (12:27)
[2021-12-30 12:31] VITALS: BP 148/94; PULSE 76
[2021-12-30] MEDS ORDERED: HYDROmorphone 1 MG/ML Syringe IM ONE (13:34)
== END 2021-12-30 15:15 | disposition home or self-care (01) ==
LOC: JD.ED 12:03
DX: G43.809 Other migraine, not intractable, without status migrainosus (principal); E78.00 Pure hypercholesterolemia, unspecified; I10 Essential (primary) hypertension; E11.9 Type 2 diabetes mellitus without complications; E66.9 Obesity, unspecified; Z68.32 Body mass index [BMI] 32.0-32.9, adult; Z88.5 Allergy status to narcotic agent; Z88.6 Allergy status to analgesic agent
CPT/HCPCS: 96372; 99283; J0780; J1170; J1200; J1630; 99282

== ENCOUNTER 2022-01-27 10:12 | Emergency (ER) | payer MEDICAID ==
[2022-01-27 13:33] VITALS: BP 152/93; PULSE 101
[2022-01-27] MEDS ORDERED: diphenhydrAMINE 50 MG/ML SDV IVPUSH ONE (13:38)
[2022-01-27] MEDS ORDERED: HYDROmorphone 1 MG/ML Syringe IVPUSH ONE (13:38)
[2022-01-27] MEDS ORDERED: Metoclopramide 10 MG/2 ML SDV IVPUSH ONE (13:38)
== END 2022-01-27 14:44 | disposition home or self-care (01) ==
LOC: JD.ED 10:12
DX: G43.809 Other migraine, not intractable, without status migrainosus (principal); E78.00 Pure hypercholesterolemia, unspecified; I10 Essential (primary) hypertension; M19.90 Unspecified osteoarthritis, unspecified site; E11.9 Type 2 diabetes mellitus without complications; E66.9 Obesity, unspecified; Z68.32 Body mass index [BMI] 32.0-32.9, adult; Z88.5 Allergy status to narcotic agent; Z88.6 Allergy status to analgesic agent; Z79.899 Other long term (current) drug therapy; Z79.01 Long term (current) use of anticoagulants
CPT/HCPCS: 96374; 96375; 99283; J1170; J1200; J2765; 99282

== ENCOUNTER 2022-02-01 16:10 | Emergency (ER) | payer MEDICAID ==
[2022-02-01 16:42] VITALS: BP 103/60; PULSE 73
[2022-02-01] MEDS ORDERED: Morphine 2 MG/ML SYRINGE IM ONE (18:04)
[2022-02-01] MEDS ORDERED: HYDROmorphone 0.5 MG/0.5 ML Syringe IM ONE (19:36)
== END 2022-02-01 19:48 | disposition home or self-care (01) ==
LOC: JD.ED 16:10
DX: M79.602 Pain in left arm (principal); M79.604 Pain in right leg; E78.00 Pure hypercholesterolemia, unspecified; I10 Essential (primary) hypertension; E11.9 Type 2 diabetes mellitus without complications; E66.9 Obesity, unspecified; Z68.33 Body mass index [BMI] 33.0-33.9, adult; Z86.718 Personal history of other venous thrombosis and embolism; Z79.01 Long term (current) use of anticoagulants; Z88.5 Allergy status to narcotic agent; Z88.6 Allergy status to analgesic agent; Z79.899 Other long term (current) drug therapy; Z79.84 Long term (current) use of oral hypoglycemic drugs
CPT/HCPCS: 36415; 80053; 85025; 85610; 85730; 93971; 96372; 99284; J1170; J2270

== ENCOUNTER → 2022-04-16 16:23 | Emergency (ER) | payer MEDICAID | END | disposition left against medical advice (07) | LOC: JD.ED 16:23 | DX: Z53.21 Procedure and treatment not carried out due to patient leaving prior to being seen by health care provider (principal) ==

== ENCOUNTER 2022-04-18 13:47 | Emergency (ER) | payer MEDICAID ==
[2022-04-18] MEDS ORDERED: Metoclopramide 10 MG/2 ML SDV ONE (15:18)
[2022-04-18] MEDS ORDERED: HYDROmorphone 1 MG/ML Syringe ONE (15:19)
[2022-04-18] MEDS ORDERED: HYDROmorphone 1 MG/ML Syringe IM ONE (15:22)
[2022-04-18] MEDS ORDERED: Metoclopramide 10 MG/2 ML SDV IM ONE (15:23)
[2022-04-24 16:31] VITALS: BP 127/78; PULSE 77
== END 2022-04-18 16:00 | disposition home or self-care (01) ==
LOC: JD.ED 13:47
DX: R51.9 Headache, unspecified (principal); R11.2 Nausea with vomiting, unspecified
CPT/HCPCS: 70450; 70450-26; 96372; 99284; J1170; J2765

== ENCOUNTER 2022-05-30 12:42 | Emergency (ER) | payer MEDICAID ==
[2022-05-30] MEDS ORDERED: Acetaminophen/oxyCODONE 325-5 MG Tab PO ONE (13:24)
[2022-05-30 16:09] VITALS: BP 133/59; PULSE 93
== END 2022-05-30 16:05 | disposition home or self-care (01) ==
LOC: JD.ED 12:42
DX: M79.605 Pain in left leg (principal); E78.00 Pure hypercholesterolemia, unspecified; I10 Essential (primary) hypertension; E11.9 Type 2 diabetes mellitus without complications; E66.9 Obesity, unspecified; Z68.30 Body mass index [BMI] 30.0-30.9, adult; Z88.1 Allergy status to other antibiotic agents; Z88.5 Allergy status to narcotic agent; Z88.8 Allergy status to other drugs, medicaments and biological substances; Z79.899 Other long term (current) drug therapy; Z79.84 Long term (current) use of oral hypoglycemic drugs; W18.11XA Fall from or off toilet without subsequent striking against object, initial encounter
CPT/HCPCS: 70450; 73502; 73564; 99284; A9270

== ENCOUNTER 2022-10-28 09:50 | Emergency (ER) | payer MEDICAID ==
[2022-10-28] MEDS ORDERED: Ondansetron 4 MG/2 ML SDV IVPUSH ONE (10:08)
[2022-10-28] MEDS ORDERED: Morphine 4 MG/ML Syringe IVPUSH ONE (10:08)
[2022-10-28 11:55] LABS: ESTIMATED GFR 76 mL/min (>60)
[2022-10-28] MEDS ORDERED: Acetaminophen/oxyCODONE 325-5 MG Tab PO ONE (12:19)
[2022-10-28 13:11] VITALS: BP 128/87; PULSE 114
== END 2022-10-28 13:10 | disposition home or self-care (01) ==
LOC: JD.ED 09:50
DX: S20.212A Contusion of left front wall of thorax, initial encounter (principal); S70.02XA Contusion of left hip, initial encounter; M54.2 Cervicalgia; E78.00 Pure hypercholesterolemia, unspecified; I10 Essential (primary) hypertension; E11.9 Type 2 diabetes mellitus without complications; E66.9 Obesity, unspecified; Z88.5 Allergy status to narcotic agent; Z88.6 Allergy status to analgesic agent; Z79.01 Long term (current) use of anticoagulants; Z79.84 Long term (current) use of oral hypoglycemic drugs; Z79.899 Other long term (current) drug therapy; W18.11XA Fall from or off toilet without subsequent striking against object, initial encounter; Y92.009 Unspecified place in unspecified non-institutional (private) residence as the place of occurrence of the external cause
CPT/HCPCS: 36415; 70450; 71045; 72125; 73502; 80053; 85025; 96374; 96375; 99284; A9270; J2270; J2405

== ENCOUNTER 2022-10-31 11:26 | Emergency (ER) | payer MEDICAID ==
[2022-10-31 11:38] VITALS: BP 143/92; PULSE 101
[2022-10-31] MEDS ORDERED: Ibuprofen 600 MG Tab PO ONE (11:52)
== END 2022-10-31 12:09 | disposition home or self-care (01) ==
LOC: JD.ED 11:26
DX: R23.4 Changes in skin texture (principal); I10 Essential (primary) hypertension; E78.00 Pure hypercholesterolemia, unspecified; E11.9 Type 2 diabetes mellitus without complications; E66.9 Obesity, unspecified; Z88.6 Allergy status to analgesic agent; Z88.5 Allergy status to narcotic agent; Z79.84 Long term (current) use of oral hypoglycemic drugs; Z79.899 Other long term (current) drug therapy; Z68.32 Body mass index [BMI] 32.0-32.9, adult
CPT/HCPCS: 99283

== ENCOUNTER 2022-12-12 13:28 | Emergency (ER) | payer MEDICAID ==
[2022-12-12 13:47] VITALS: PULSE 61
[2022-12-12] MEDS ORDERED: HYDROmorphone 1 MG/ML Syringe IM ONE (13:59)
[2022-12-12 14:31] VITALS: BP 103/51
== END 2022-12-12 14:30 | disposition home or self-care (01) ==
LOC: JD.ED 13:28
DX: G89.29 Other chronic pain (principal); M54.50 Low back pain, unspecified; I10 Essential (primary) hypertension; E11.9 Type 2 diabetes mellitus without complications; E66.9 Obesity, unspecified; Z68.37 Body mass index [BMI] 37.0-37.9, adult; Z88.5 Allergy status to narcotic agent; Z88.8 Allergy status to other drugs, medicaments and biological substances; Z79.84 Long term (current) use of oral hypoglycemic drugs; Z79.01 Long term (current) use of anticoagulants; Z79.899 Other long term (current) drug therapy
CPT/HCPCS: 96372; 99283; J1170

== ENCOUNTER 2023-02-06 12:45 | Emergency (ER) | payer MEDICAID ==
[2023-02-06] MEDS ORDERED: HYDROmorphone 1 MG/ML Syringe IM ONE (14:10)
[2023-02-06] MEDS ORDERED: Metoclopramide 10 MG/2 ML SDV IM ONE (14:10)
[2023-02-06] MEDS ORDERED: diphenhydrAMINE 50 MG/ML SDV IM ONE (14:11)
[2023-02-06 20:01] VITALS: BP 127/87; PULSE 88
== END 2023-02-06 15:40 | disposition home or self-care (01) ==
LOC: JD.ED 12:45
DX: G43.809 Other migraine, not intractable, without status migrainosus (principal); I10 Essential (primary) hypertension; E11.9 Type 2 diabetes mellitus without complications; E78.00 Pure hypercholesterolemia, unspecified; E66.9 Obesity, unspecified; Z86.718 Personal history of other venous thrombosis and embolism; Z88.5 Allergy status to narcotic agent; Z88.6 Allergy status to analgesic agent; Z79.84 Long term (current) use of oral hypoglycemic drugs; Z79.899 Other long term (current) drug therapy; Z68.34 Body mass index [BMI] 34.0-34.9, adult
CPT/HCPCS: 96372; 99283; J1170; J1200; J2765

== ENCOUNTER 2023-02-13 16:35 | Emergency (ER) | payer MEDICAID ==
[2023-02-13] MEDS ORDERED: HYDROmorphone 1 MG/ML Syringe IM ONE (17:03)
[2023-02-13] MEDS ORDERED: diphenhydrAMINE 50 MG/ML SDV IM ONE (17:03)
[2023-02-13] MEDS ORDERED: Metoclopramide 10 MG/2 ML SDV IM ONE (17:45)
[2023-02-13] MEDS: Metoclopramide 10 MG/2 ML SDV IVPUSH ONE ×2 (17:57→17:58)
[2023-02-13] MEDS ORDERED: HYDROmorphone 0.5 MG/0.5 ML Syringe IM ONE (18:42)
[2023-02-13 19:41] VITALS: BP 124/78; PULSE 71
== END 2023-02-13 19:35 | disposition home or self-care (01) ==
LOC: JD.ED 16:35
DX: G43.809 Other migraine, not intractable, without status migrainosus (principal); E11.9 Type 2 diabetes mellitus without complications; E78.00 Pure hypercholesterolemia, unspecified; I10 Essential (primary) hypertension; E66.9 Obesity, unspecified; Z68.30 Body mass index [BMI] 30.0-30.9, adult; Z79.02 Long term (current) use of antithrombotics/antiplatelets; Z79.84 Long term (current) use of oral hypoglycemic drugs; Z79.899 Other long term (current) drug therapy; Z88.5 Allergy status to narcotic agent; Z88.8 Allergy status to other drugs, medicaments and biological substances
CPT/HCPCS: 96372; 99283; J1170; J1200; J2765; 99284

== ENCOUNTER 2023-03-13 14:31 | Emergency (ER) | payer MEDICAID ==
[2023-03-13] MEDS ORDERED: diphenhydrAMINE 50 MG/ML SDV IM ONE (15:00)
[2023-03-13] MEDS ORDERED: Morphine 4 MG/ML Syringe IM ONE (15:00)
[2023-03-13] MEDS ORDERED: Metoclopramide 10 MG/2 ML SDV IM ONE (15:00)
[2023-03-13] MEDS ORDERED: HYDROmorphone 1 MG/ML Syringe IM ONE (16:03)
[2023-03-13 17:39] VITALS: BP 131/94; PULSE 78
== END 2023-03-13 17:20 | disposition home or self-care (01) ==
LOC: JD.ED 14:31
DX: G43.809 Other migraine, not intractable, without status migrainosus (principal); E78.00 Pure hypercholesterolemia, unspecified; I10 Essential (primary) hypertension; E11.9 Type 2 diabetes mellitus without complications; E66.9 Obesity, unspecified; Z88.1 Allergy status to other antibiotic agents; Z88.8 Allergy status to other drugs, medicaments and biological substances; Z86.718 Personal history of other venous thrombosis and embolism; Z79.84 Long term (current) use of oral hypoglycemic drugs; Z79.01 Long term (current) use of anticoagulants; Z79.899 Other long term (current) drug therapy; Z68.29 Body mass index [BMI] 29.0-29.9, adult
CPT/HCPCS: 96372; 99283; J1170; J1200; J2270; J2765

== ENCOUNTER 2023-04-23 14:08 | Emergency (ER) | payer MEDICAID ==
[2023-04-23] MEDS ORDERED: Metoclopramide 10 MG/2 ML SDV IVPUSH ONE (14:57)
[2023-04-23] MEDS ORDERED: diphenhydrAMINE 50 MG/ML SDV IVPUSH ONE (14:57)
[2023-04-23] MEDS ORDERED: Lactated Ringers 1,000 ML IV SCH (15:00)
[2023-04-23] MEDS ORDERED: HYDROmorphone 0.5 MG/0.5 ML Syringe IVPUSH ONE ×2 (15:01→16:46)
[2023-04-23] MEDS ORDERED: Naloxone 0.4 MG/ML SDV IVPUSH PRN ×2 (15:01→16:46)
[2023-04-23 16:01] LABS: BASOPHILS ABSOLUTE AUTO 0.1 K/mm3 (0.0-0.2); BASOPHILS PERCENT AUTO 1.1 % (0.0-1.0); EOSINOPHILS ABSOLUTE AUTO 0.2 K/mm3 (0.0-0.4); EOSINOPHILS PERCENT AUTO 2.8 % (0.0-6.0); HEMATOCRIT 48.8 % (42.0-52.0); HEMOGLOBIN 16.5 gm/dl (14.0-18.0); IMMATURE GRAN ABSOLUTE AUTO 0.02 K/mm3 (0.00-0.05); IMMATURE GRAN PERCENT AUTO 0.3 % (0.0-0.4); LYMPHOCYTES ABSOLUTE AUTO 3.5 K/mm3 (1.0-4.8); LYMPHOCYTES PERCENT AUTO 49.1 % (24.0-44.0); MEAN CORPUSCULAR HEMOGLOBIN 29.4 pg (28.0-32.0); MEAN CORPUSCULAR HGB CONC 33.8 g/dl (32.0-36.0); MONOCYTES ABSOLUTE AUTO 0.5 K/mm3 (0.0-0.8); MONOCYTES PERCENT AUTO 6.3 % (0.0-8.0); NEUTROPHILS ABSOLUTE AUTO 2.9 K/mm3 (1.8-7.7); NEUTROPHILS PERCENT AUTO 40.4 % (41.0-71.0); PLATELET COUNT,PLT 362 K/mm3 (150-400); RED BLOOD CELL COUNT 5.61 M/mm3 (4.52-5.90); WHITE BLOOD CELL COUNT,WBC 7.09 K/mm3 (3.9-11.3)
[2023-04-23 16:34] LABS: A/G RATIO 0.7 (1-2); ALBUMIN 3.3 g/dl (3.4-5.0); ANION GAP 12.2 (5-15); BILIRUBIN TOTAL 0.4 mg/dL (0.2-1.0); BUN/CREATININE RATIO 10.7 (14-18); C-REACTIVE PROTEIN 1.8 mg/dL (<1.0); CALCIUM 9.2 mg/dL (8.5-10.1); CREATININE 1.4 mg/dL (0.7-1.3); EST CRCL DRUG DOSING (CG) 75.24 mL/min; POTASSIUM,K 3.2 mEq/L (3.5-5.1); PROTEIN TOTAL,TP 8.3 g/dl (6.4-8.2)
[2023-04-23] MEDS ORDERED: Potassium Chloride 20 MEQ Tab.ER PO ONE (18:26)
[2023-04-23 19:12] VITALS: BP 121/85; PULSE 89
== END 2023-04-23 19:09 | disposition home or self-care (01) ==
LOC: JD.ED 14:08
DX: G43.109 Migraine with aura, not intractable, without status migrainosus (principal); E11.59 Type 2 diabetes mellitus with other circulatory complications; E87.6 Hypokalemia; I10 Essential (primary) hypertension; E78.00 Pure hypercholesterolemia, unspecified; E66.9 Obesity, unspecified; Z68.30 Body mass index [BMI] 30.0-30.9, adult; Z79.84 Long term (current) use of oral hypoglycemic drugs; Z79.899 Other long term (current) drug therapy; Z88.5 Allergy status to narcotic agent; Z88.6 Allergy status to analgesic agent
CPT/HCPCS: 36415; 80053; 85025; 86140; 96361; 96374; 96375; 96376; 99283; A9270; J1170; J1200; J2765; J7120; 99284

== ENCOUNTER 2023-07-19 13:25 | Emergency (ER) | payer MEDICAID ==
[2023-07-19] MEDS ORDERED: HYDROmorphone 1 MG/ML Syringe IM ONE (13:56)
[2023-07-19] MEDS ORDERED: diphenhydrAMINE 50 MG/ML SDV IM ONE (13:57)
[2023-07-19] MEDS ORDERED: Metoclopramide 10 MG/2 ML SDV IM ONE (13:57)
[2023-07-19] MEDS ORDERED: Sodium Chloride 0.9% 10 ML Syringe FLUSH PRN (14:16)
[2023-07-19] MEDS ORDERED: HYDROmorphone 1 MG/ML Syringe IVPUSH ONE (14:16)
[2023-07-19] MEDS ORDERED: diphenhydrAMINE 50 MG/ML SDV IVPUSH ONE (14:16)
[2023-07-19] MEDS ORDERED: Metoclopramide 10 MG/2 ML SDV IVPUSH ONE (14:16)
[2023-07-19 14:23] LABS: BASOPHILS PERCENT AUTO 0.6 % (0.0-1.0); EOSINOPHILS ABSOLUTE AUTO 0.2 K/mm3 (0.0-0.4); EOSINOPHILS PERCENT AUTO 2.4 % (0.0-6.0); HEMATOCRIT 38.6 % (42.0-52.0); IMMATURE GRAN ABSOLUTE AUTO 0.01 K/mm3 (0.00-0.05); IMMATURE GRAN PERCENT AUTO 0.2 % (0.0-0.4); LYMPHOCYTES ABSOLUTE AUTO 2.4 K/mm3 (1.0-4.8); LYMPHOCYTES PERCENT AUTO 38.4 % (24.0-44.0); MEAN CORPUSCULAR HEMOGLOBIN 28.6 pg (28.0-32.0); MEAN CORPUSCULAR HGB CONC 33.4 g/dl (32.0-36.0); MEAN CORPUSCULAR VOLUME 85.6 fl (83.0-99.0); MONOCYTES ABSOLUTE AUTO 0.4 K/mm3 (0.0-0.8); MONOCYTES PERCENT AUTO 5.8 % (0.0-8.0); NEUTROPHILS ABSOLUTE AUTO 3.2 K/mm3 (1.8-7.7); NEUTROPHILS PERCENT AUTO 52.6 % (41.0-71.0); RED BLOOD CELL COUNT 4.51 M/mm3 (4.52-5.90); WHITE BLOOD CELL COUNT,WBC 6.17 K/mm3 (3.9-11.3)
[2023-07-19 14:25] LABS: HEMOGLOBIN 12.9 gm/dl (14.0-18.0); PLATELET COUNT,PLT 254 K/mm3 (150-400)
[2023-07-19 14:43] LABS: A/G RATIO 0.7 (1-2); ALANINE AMINOTRANSFERASE,ALT 44 U/L (16-63); ALBUMIN 3.3 g/dl (3.4-5.0); ALKALINE PHOSPHATASE 67 U/L (46-116); ANION GAP 16.1 (5-15); ASPARTATE AMNIOTRANSFERASE,AST 29 U/L (15-37); BILIRUBIN TOTAL 0.5 mg/dL (0.2-1.0); BLOOD UREA NITROGEN,BUN 10 mg/dL (7-18); BUN/CREATININE RATIO 9.1 (14-18); C-REACTIVE PROTEIN 3.1 mg/dL (<1.0); CALCIUM 9.4 mg/dL (8.5-10.1); CARBON DIOXIDE,CO2 26 mEq/L (21-32); CHLORIDE,CL 103 mEq/L (98-107); CREATININE 1.1 mg/dL (0.7-1.3); ESTIMATED GFR 76 mL/min (>60); GLUCOSE RANDOM 238 mg/dL (70-99); POTASSIUM,K 3.1 mEq/L (3.5-5.1); PROTEIN TOTAL,TP 7.8 g/dl (6.4-8.2); SODIUM,NA 142 mEq/L (136-145)
[2023-07-19] MEDS ORDERED: cefTRIAXone 1 GM in Sodium Chloride 0.9% 100 ML IV ONE (15:47)
[2023-07-19] MEDS ORDERED: HYDROmorphone 0.5 MG/0.5 ML Syringe IVPUSH ONE (15:48)
[2023-07-19 17:12] VITALS: BP 147/90; PULSE 78
== END 2023-07-19 17:10 | disposition home or self-care (01) ==
LOC: JD.ED 13:25
DX: R51.9 Headache, unspecified (principal); L03.031 Cellulitis of right toe; E78.00 Pure hypercholesterolemia, unspecified; I10 Essential (primary) hypertension; E11.9 Type 2 diabetes mellitus without complications; E66.9 Obesity, unspecified; Z79.02 Long term (current) use of antithrombotics/antiplatelets; Z79.84 Long term (current) use of oral hypoglycemic drugs; Z79.899 Other long term (current) drug therapy; Z88.5 Allergy status to narcotic agent; Z88.8 Allergy status to other drugs, medicaments and biological substances
CPT/HCPCS: 36415; 73630; 80053; 85025; 85652; 86140; 96365; 96375; 96376; 99284; J0696; J1170; J1200; J2765; J3490

== ENCOUNTER 2023-10-08 07:03 | Emergency (ER) | payer MEDICAID ==
[2023-10-08] MEDS: diphenhydrAMINE 50 MG/ML SDV IVPUSH ONE (07:35)
[2023-10-08] MEDS: Metoclopramide 10 MG/2 ML SDV IVPUSH ONE (07:37)
[2023-10-08] MEDS: Sodium Chloride 0.9% 1,000 ML IV ONE (07:40)
[2023-10-08] MEDS: Acetaminophen 325 MG Tab PO ONE (08:14)
[2023-10-08 09:22] LABS: BASOPHILS ABSOLUTE AUTO 0.1 K/mm3 (0.0-0.2); BASOPHILS PERCENT AUTO 0.5 % (0.0-1.0); EOSINOPHILS PERCENT AUTO 0.4 % (0.0-6.0); HEMATOCRIT 47.9 % (42.0-52.0); IMMATURE GRAN ABSOLUTE AUTO 0.03 K/mm3 (0.00-0.05); IMMATURE GRAN PERCENT AUTO 0.3 % (0.0-0.4); LYMPHOCYTES ABSOLUTE AUTO 3.5 K/mm3 (1.0-4.8); LYMPHOCYTES PERCENT AUTO 36.7 % (24.0-44.0); MEAN CORPUSCULAR HEMOGLOBIN 28.4 pg (28.0-32.0); MEAN CORPUSCULAR HGB CONC 33.2 g/dl (32.0-36.0); MEAN CORPUSCULAR VOLUME 85.7 fl (83.0-99.0); MEAN PLATELET VOLUME 9.2 fl (9.4-12.4); MONOCYTES ABSOLUTE AUTO 0.7 K/mm3 (0.0-0.8); MONOCYTES PERCENT AUTO 7.7 % (0.0-8.0); NEUTROPHILS ABSOLUTE AUTO 5.2 K/mm3 (1.8-7.7); NEUTROPHILS PERCENT AUTO 54.4 % (41.0-71.0); RED BLOOD CELL COUNT 5.59 M/mm3 (4.52-5.90); WHITE BLOOD CELL COUNT,WBC 9.62 K/mm3 (3.9-11.3)
[2023-10-08 09:23] LABS: HEMOGLOBIN 15.9 gm/dl (14.0-18.0); PLATELET COUNT,PLT 355 K/mm3 (150-400)
[2023-10-08 09:44] LABS: A/G RATIO 0.8 (1-2); ALBUMIN 3.7 g/dl (3.4-5.0); ANION GAP 18.8 (5-15); BILIRUBIN TOTAL 0.6 mg/dL (0.2-1.0); BUN/CREATININE RATIO 18.3 (14-18); CREATININE 1.8 mg/dL (0.7-1.3); EST CRCL DRUG DOSING (CG) 56.39 mL/min; MAGNESIUM 1.8 mg/dL (1.8-2.4); POTASSIUM,K 3.8 mEq/L (3.5-5.1); PROTEIN TOTAL,TP 8.1 g/dl (6.4-8.2)
[2023-10-08] MEDS: SUMAtriptan 50 MG Tab PO ONE (11:00)
[2023-10-08] MEDS: HYDROmorphone 0.5 MG/0.5 ML Syringe IVPUSH ONE (12:19)
[2023-10-08 14:32] VITALS: BP 135/90; PULSE 84
== END 2023-10-08 13:52 | disposition home or self-care (01) ==
LOC: JD.ED 07:03 → SUPCPDRO 07:03 → JD.ED 13:52
DX: R51.9 Headache, unspecified (principal); I10 Essential (primary) hypertension; E11.9 Type 2 diabetes mellitus without complications; Z88.5 Allergy status to narcotic agent; Z88.6 Allergy status to analgesic agent; Z88.8 Allergy status to other drugs, medicaments and biological substances; Z79.84 Long term (current) use of oral hypoglycemic drugs; Z79.899 Other long term (current) drug therapy
CPT/HCPCS: 36415; 70450; 80053; 82947; 83735; 85025; 93005; 96361; 96374; 96375; 99285; A9270; J1170; J1200; J2765; J7030; 93010; 99284

== ENCOUNTER 2024-03-28 16:07 | Emergency (ER) | payer MEDICAID ==
[2024-03-28] MEDS ORDERED: Sodium Chloride 0.9% 10 ML Syringe FLUSH PRN (17:54)
[2024-03-28 18:07] LABS: BASOPHILS PERCENT AUTO 0.5 % (0.0-1.0); EOSINOPHILS ABSOLUTE AUTO 0.1 K/mm3 (0.0-0.4); EOSINOPHILS PERCENT AUTO 1.5 % (0.0-6.0); HEMATOCRIT 43.8 % (42.0-52.0); IMMATURE GRAN ABSOLUTE AUTO 0.02 K/mm3 (0.00-0.05); IMMATURE GRAN PERCENT AUTO 0.2 % (0.0-0.4); LYMPHOCYTES ABSOLUTE AUTO 3.2 K/mm3 (1.0-4.8); MEAN CORPUSCULAR HEMOGLOBIN 27.7 pg (28.0-32.0); MEAN CORPUSCULAR VOLUME 86.7 fl (83.0-99.0); MEAN PLATELET VOLUME 9.7 fl (9.4-12.4); MONOCYTES ABSOLUTE AUTO 0.6 K/mm3 (0.0-0.8); MONOCYTES PERCENT AUTO 6.5 % (0.0-8.0); NEUTROPHILS ABSOLUTE AUTO 4.7 K/mm3 (1.8-7.7); NEUTROPHILS PERCENT AUTO 54.3 % (41.0-71.0); PLATELET COUNT,PLT 302 K/mm3 (150-400); RED BLOOD CELL COUNT 5.05 M/mm3 (4.52-5.90); WHITE BLOOD CELL COUNT,WBC 8.73 K/mm3 (3.9-11.3)
[2024-03-28 18:35] LABS: A/G RATIO 0.9 (1-2); ALANINE AMINOTRANSFERASE,ALT 26 U/L (16-63); ALBUMIN 3.6 g/dl (3.4-5.0); ALKALINE PHOSPHATASE 60 U/L (46-116); ANION GAP 12.5 (5-15); ASPARTATE AMNIOTRANSFERASE,AST 18 U/L (15-37); BILIRUBIN TOTAL 0.5 mg/dL (0.2-1.0); BLOOD UREA NITROGEN,BUN 17 mg/dL (7-18); BUN/CREATININE RATIO 11.3 (14-18); CALCIUM 9.1 mg/dL (8.5-10.1); CARBON DIOXIDE,CO2 28 mEq/L (21-32); CHLORIDE,CL 103 mEq/L (98-107); CREATININE 1.5 mg/dL (0.7-1.3); ESTIMATED GFR 52 mL/min (>60); GLUCOSE RANDOM 169 mg/dL (70-99); POTASSIUM,K 3.5 mEq/L (3.5-5.1); PROTEIN TOTAL,TP 7.7 g/dl (6.4-8.2); SODIUM,NA 140 mEq/L (136-145)
[2024-03-28] MEDS: oxyCODONE 5 MG Tab PO ONE (19:06)
[2024-03-28] MEDS: Sodium Chloride 0.9% 1,000 ML IV ONE (19:08)
[2024-03-28] MEDS: Sodium Chloride 0.9% 500 ML IV ONE (19:27)
[2024-03-28 19:56] VITALS: BP 109/73; PULSE 69
== END 2024-03-28 19:40 | disposition home or self-care (01) ==
LOC: JD.ED 16:07
DX: R51.9 Headache, unspecified (principal); M79.10 Myalgia, unspecified site; Z76.0 Encounter for issue of repeat prescription; Z87.19 Personal history of other diseases of the digestive system; I10 Essential (primary) hypertension; E11.9 Type 2 diabetes mellitus without complications; Z79.84 Long term (current) use of oral hypoglycemic drugs; Z79.899 Other long term (current) drug therapy; Z88.5 Allergy status to narcotic agent; Z88.6 Allergy status to analgesic agent
CPT/HCPCS: 36415; 70450; 71045; 80053; 83735; 85025; 93005; 99284; A9270; 93010; 99283; J7030

== ENCOUNTER 2024-04-22 10:01 | Emergency (ER) | payer MEDICAID ==
[2024-04-22 10:10] VITALS: BP 165/73; PULSE 71
[2024-04-22] MEDS ORDERED: Sodium Chloride 0.9% 10 ML Syringe FLUSH PRN (10:44)
[2024-04-22 11:18] LABS: BASOPHILS ABSOLUTE AUTO 0.1 K/mm3 (0.0-0.2); BASOPHILS PERCENT AUTO 0.7 % (0.0-1.0); EOSINOPHILS ABSOLUTE AUTO 0.2 K/mm3 (0.0-0.4); EOSINOPHILS PERCENT AUTO 2.7 % (0.0-6.0); HEMATOCRIT 41.4 % (42.0-52.0); HEMOGLOBIN 13.7 gm/dl (14.0-18.0); IMMATURE GRAN ABSOLUTE AUTO 0.02 K/mm3 (0.00-0.05); IMMATURE GRAN PERCENT AUTO 0.3 % (0.0-0.4); LYMPHOCYTES ABSOLUTE AUTO 3.4 K/mm3 (1.0-4.8); LYMPHOCYTES PERCENT AUTO 47.8 % (24.0-44.0); MEAN CORPUSCULAR HEMOGLOBIN 28.3 pg (28.0-32.0); MEAN CORPUSCULAR HGB CONC 33.1 g/dl (32.0-36.0); MEAN CORPUSCULAR VOLUME 85.5 fl (83.0-99.0); MEAN PLATELET VOLUME 10.1 fl (9.4-12.4); MONOCYTES ABSOLUTE AUTO 0.5 K/mm3 (0.0-0.8); MONOCYTES PERCENT AUTO 7.4 % (0.0-8.0); NEUTROPHILS ABSOLUTE AUTO 2.9 K/mm3 (1.8-7.7); NEUTROPHILS PERCENT AUTO 41.1 % (41.0-71.0); PLATELET COUNT,PLT 242 K/mm3 (150-400); RED BLOOD CELL COUNT 4.84 M/mm3 (4.52-5.90); WHITE BLOOD CELL COUNT,WBC 7.07 K/mm3 (3.9-11.3)
[2024-04-22] MEDS: Metoclopramide 10 MG/2 ML SDV IVPUSH ONE (11:28)
[2024-04-22] MEDS: Lactated Ringers 500 ML IV ONE (11:28)
[2024-04-22] MEDS: Acetaminophen 325 MG Tab PO ONE (11:28)
[2024-04-22] MEDS: diphenhydrAMINE 50 MG/ML SDV IVPUSH ONE (11:28)
[2024-04-22 11:42] LABS: A/G RATIO 0.9 (1-2); ALBUMIN 3.5 g/dl (3.4-5.0); ANION GAP 12.9 (5-15); BILIRUBIN TOTAL 0.3 mg/dL (0.2-1.0); BUN/CREATININE RATIO 11.5 (14-18); CALCIUM 8.6 mg/dL (8.5-10.1); CREATININE 1.3 mg/dL (0.7-1.3); POTASSIUM,K 2.9 mEq/L (3.5-5.1); PROTEIN TOTAL,TP 7.5 g/dl (6.4-8.2)
== END 2024-04-22 14:21 | disposition home or self-care (01) ==
LOC: JD.ED 10:01
DX: R51.9 Headache, unspecified (principal); E87.6 Hypokalemia; E11.649 Type 2 diabetes mellitus with hypoglycemia without coma; I10 Essential (primary) hypertension; Z79.02 Long term (current) use of antithrombotics/antiplatelets; Z79.84 Long term (current) use of oral hypoglycemic drugs; Z79.899 Other long term (current) drug therapy; Z88.5 Allergy status to narcotic agent; Z88.8 Allergy status to other drugs, medicaments and biological substances
CPT/HCPCS: 36415; 70450; 80053; 85025; 96361; 96374; 96375; 99284; A9270; J1200; J2765; J7120

== ENCOUNTER 2024-05-22 11:51 | Emergency (ER) | payer MEDICAID | END 2024-05-22 12:40 | disposition left against medical advice (07) | LOC: JD.ED 11:51 | DX: Z53.21 Procedure and treatment not carried out due to patient leaving prior to being seen by health care provider (principal) ==

== ENCOUNTER 2024-11-01 10:58 | Emergency (ER) | payer MEDICAID ==
[2024-11-01] MEDS: oxyCODONE 5 MG Tab PO ONE ×2 (11:53→18:00)
[2024-11-01] MEDS: Metoclopramide 10 MG/2 ML SDV IVPUSH ONE (12:11)
[2024-11-01] MEDS: Sodium Chloride 0.9% 1,000 ML IV STA (12:11)
[2024-11-01] MEDS: Ketorolac 30 MG/ML SDV IVPUSH ONE (12:12)
[2024-11-01] MEDS: diphenhydrAMINE 50 MG/ML SDV IVPUSH ONE (12:12)
[2024-11-01 12:15] LABS: BASOPHILS PERCENT AUTO 0.5 % (0.0-1.0); EOSINOPHILS ABSOLUTE AUTO 0.1 K/mm3 (0.0-0.4); EOSINOPHILS PERCENT AUTO 0.8 % (0.0-6.0); HEMATOCRIT 46.1 % (42.0-52.0); HEMOGLOBIN 15.1 gm/dl (14.0-18.0); IMMATURE GRAN ABSOLUTE AUTO 0.02 K/mm3 (0.00-0.05); IMMATURE GRAN PERCENT AUTO 0.2 % (0.0-0.4); LYMPHOCYTES ABSOLUTE AUTO 2.7 K/mm3 (1.0-4.8); MEAN CORPUSCULAR HEMOGLOBIN 28.3 pg (28.0-32.0); MEAN CORPUSCULAR HGB CONC 32.8 g/dl (32.0-36.0); MEAN CORPUSCULAR VOLUME 86.5 fl (83.0-99.0); MEAN PLATELET VOLUME 9.6 fl (9.4-12.4); MONOCYTES ABSOLUTE AUTO 0.6 K/mm3 (0.0-0.8); MONOCYTES PERCENT AUTO 6.2 % (0.0-8.0); NEUTROPHILS ABSOLUTE AUTO 5.5 K/mm3 (1.8-7.7); NEUTROPHILS PERCENT AUTO 62.3 % (41.0-71.0); PLATELET COUNT,PLT 361 K/mm3 (150-400); RED BLOOD CELL COUNT 5.33 M/mm3 (4.52-5.90); WHITE BLOOD CELL COUNT,WBC 8.82 K/mm3 (3.9-11.3)
[2024-11-01 12:42] LABS: A/G RATIO 0.7 (1-2); ALBUMIN 3.5 g/dl (3.4-5.0); ANION GAP 13.4 (5-15); BILIRUBIN TOTAL 0.7 mg/dL (0.2-1.0); BUN/CREATININE RATIO 12.7 (14-18); CALCIUM 8.8 mg/dL (8.5-10.1); CREATININE 1.1 mg/dL (0.7-1.3); EST CRCL DRUG DOSING (CG) 91.1 mL/min; PROTEIN TOTAL,TP 8.2 g/dl (6.4-8.2)
[2024-11-01 12:45] LABS: POTASSIUM,K 2.4 mEq/L (3.5-5.1)
[2024-11-01] MEDS: Potassium Chloride 20 MEQ Tab.ER PO ONE (12:58)
[2024-11-01] MEDS: Potassium Chloride 10 MEQ in Premix Bag 1 BAG IV SCH (13:07)
[2024-11-01 17:53] VITALS: BP 108/84; PULSE 84
== END 2024-11-01 17:54 | disposition home or self-care (01) ==
LOC: JD.ED 10:58
DX: G43.109 Migraine with aura, not intractable, without status migrainosus (principal); E87.6 Hypokalemia; I10 Essential (primary) hypertension; E11.9 Type 2 diabetes mellitus without complications; Z79.84 Long term (current) use of oral hypoglycemic drugs; Z79.01 Long term (current) use of anticoagulants; Z79.899 Other long term (current) drug therapy; Z88.5 Allergy status to narcotic agent; Z88.6 Allergy status to analgesic agent
CPT/HCPCS: 36415; 80053; 85025; 86140; 93005; 96361; 96365; 96366; 96375; 99284; A9270; J1200; J1885; J2765; J3480; J7030; 93010; 99283

== ENCOUNTER 2025-02-04 10:50 | Emergency (ER) | payer MEDICAID ==
[2025-02-04] MEDS: Acetaminophen/oxyCODONE 325-5 MG Tab PO ONE (11:40)
[2025-02-04] MEDS: Ondansetron 4 MG Tab.DIS PO ONE (11:40)
[2025-02-04 11:51] VITALS: BP 104/64; PULSE 88
== END 2025-02-04 11:50 | disposition home or self-care (01) ==
LOC: JD.ED 10:50
DX: G89.29 Other chronic pain (principal); Z76.0 Encounter for issue of repeat prescription; I10 Essential (primary) hypertension; E11.9 Type 2 diabetes mellitus without complications; Z88.5 Allergy status to narcotic agent; Z88.8 Allergy status to other drugs, medicaments and biological substances; Z79.84 Long term (current) use of oral hypoglycemic drugs; Z79.01 Long term (current) use of anticoagulants; Z79.899 Other long term (current) drug therapy
CPT/HCPCS: 99284; A9270